=== PATIENT | male | born 1950 | race Caucasian/White ===

== ENCOUNTER 2018-08-12 12:31 | Inpatient (IN) | payer MEDICARE ==
--- NOTE | 2018-08-12 13:16 | ED ---
General Adult HPI - General Chief complaint: Shortness of Breath Stated complaint: SOB Time Seen by Provider: 08/12/18 12:41 Source: patient, RN notes reviewed, old records reviewed Mode of arrival: ambulatory Limitations: no limitations - History of Present Illness Initial comments: 68-year-old male presenting with 1 month history of worsening dyspnea, lower extremity swelling, bilateral arm pain and tingling. Patient is a current smoker, states she has baseline cough. No fever or chills. No history of congestive heart failure. Denies central chest pain. Does report some abdominal bloating and nausea. No history of fever or chills. No vomiting or diarrhea. - Related Data Home Medications Medication Instructions Recorded Confirmed Aspirin EC [Ecotrin Low Dose] 162 - 405 mg PO DAILY PRN 08/12/18 08/12/18 Calcium Carbonate [Tums] 500 mg PO QID PRN 08/12/18 08/12/18 Allergies Allergy/AdvReac Type Severity Reaction Status Date / Time No Known Allergies Allergy Verified 08/12/18 13:16 Review of Systems ROS Statement: Those systems with pertinent positive or pertinent negative responses have been documented in the HPI. ROS Other: All systems not noted in ROS Statement are negative. Past Medical History Past Medical History: No Reported History History of Any Multi-Drug Resistant Organisms: None Reported Past Surgical History: No Surgical Hx Reported Past Psychological History: No Psychological Hx Reported Smoking Status: Heavy tobacco smoker Past Alcohol Use History: Daily Past Drug Use History: None Reported General Exam Limitations: no limitations General appearance: alert, in no apparent distress Head exam: Present: atraumatic, normocephalic Eye exam: Present: normal appearance, PERRL ENT exam: Present: normal exam Neck exam: Present: normal inspection. Absent: tenderness, meningismus Respiratory exam: Present: rales. Absent: respiratory distress Cardiovascular Exam: Present: regular rate, normal rhythm GI/Abdominal exam: Present: soft. Absent: distended, tenderness Extremities exam: Present: normal capillary refill, pedal edema Back exam: Present: normal inspection Neurological exam: Present: alert, oriented X3, CN II-XII intact. Absent: motor sensory deficit Psychiatric exam: Present: normal affect, normal mood Skin exam: Present: warm, dry, intact, pallor. Absent: cyanosis, diaphoretic Course Vital Signs 08/12/18 08/12/18 08/12/18 12:37 13:17 13:50 Temperature 98.1 F Pulse Rate 128 H 90 Respiratory 18 20 18 Rate Blood Pressure 111/61 142/67 O2 Sat by Pulse 97 98 Oximetry 08/12/18 08/12/18 14:30 15:15 Temperature Pulse Rate 87 85 Respiratory 18 18 Rate Blood Pressure 138/60 O2 Sat by Pulse 100 100 Oximetry EKG Findings - EKG Comments: EKG Findings:: EKG: Normal sinus rhythm, no ST segment elevation, rate of 94, CA interval 162, QRS duration 88, QTC 467 Medical Decision Making - Medical Decision Making 68-year-old male presenting with dyspnea over the past one month. Patient appears pale, he has exam findings consistent with CHF. EKG is nonischemic, troponin is negative. Chest x-ray does show some pulmonary edema. Patient has normal white blood cell count, hemoglobin is 4, normal platelets. He has elevated AST and ALT likely secondary to alcohol abuse. Rectal exam reveals normal brown stool, this is heme negative. INR is elevated 1.7. Given the elevation in AST ALT, ultrasound of the liver and gallbladder will be obtained, this is pending. Echo will be obtained. Patient is transfused 3 units of packed RBCs. He will be given additional dose of Lasix after transfusion. Case is discussed with the pulmonary order expediter Dr. Clay, felt the patient is stable for telemetry, selective unit, no need for ICU at this time. Echo and ultrasound pending. Case discussed with Dr. Subramanian, will admit patient. - Lab Data Result diagrams: 08/12/18 14:20 08/12/18 14:20 Lab Results 08/12/18 08/12/18 08/12/18 Range/Units 13:20 14:20 14:20 WBC 7.0 (3.8-10.6) k/uL RBC 2.44 L (4.30-5.90) m/uL Hgb 4.0 L* (13.0-17.5) gm/dL Hct 17.6 L* (39.0-53.0) % MCV 72.1 L (80.0-100.0) fL MCH 16.4 L (25.0-35.0) pg MCHC 22.7 L (31.0-37.0) g/dL RDW 18.4 H (11.5-15.5) % Plt Count 437 (150-450) k/uL Neutrophils % 78 % Lymphocytes % 10 % Monocytes % 8 % Eosinophils % 1 % Basophils % 0 % Neutrophils # 5.5 (1.3-7.7) k/uL Lymphocytes # 0.7 L (1.0-4.8) k/uL Monocytes # 0.6 (0-1.0) k/uL Eosinophils # 0.1 (0-0.7) k/uL Basophils # 0.0 (0-0.2) k/uL Hypochromasia Marked Hypochromasia (manual) Present Poikilocytosis Slight Poikilocytosis (manual Present Anisocytosis Slight Microcytosis Moderate PT 16.7 H (9.0-12.0) sec INR 1.7 H (<1.2) APTT 22.0 (22.0-30.0) sec Sodium 139 (137-145) mmol/L Potassium 3.9 (3.5-5.1) mmol/L Chloride 102 (98-107) mmol/L Carbon Dioxide 23 (22-30) mmol/L Anion Gap 14 mmol/L BUN 16 (9-20) mg/dL Creatinine 1.00 (0.66-1.25) mg/dL Est GFR (CKD-EPI)AfAm 90 (>60 ml/min/1.73 sqM) Est GFR (CKD-EPI)NonAf 78 (>60 ml/min/1.73 sqM) Glucose 113 H (74-99) mg/dL Calcium 8.7 (8.4-10.2) mg/dL Magnesium 2.0 (1.6-2.3) mg/dL Total Bilirubin 0.4 (0.2-1.3) mg/dL AST 606 H (17-59) U/L ALT 237 H (21-72) U/L Alkaline Phosphatase 142 H (38-126) U/L Troponin I (0.000-0.034) ng/mL NT-Pro-B Natriuret Pep pg/mL Total Protein 8.0 (6.3-8.2) g/dL Albumin 3.5 (3.5-5.0) g/dL Stool Occult Blood (Negative) Blood Type Recheck Spec Expiration Date 04/04/19 04/04/19 04/04/19 Range/Units 14:20 14:20 14:20 WBC (3.8-10.6) k/uL RBC (4.30-5.90) m/uL Hgb (13.0-17.5) gm/dL Hct (39.0-53.0) % MCV (80.0-100.0) fL MCH (25.0-35.0) pg MCHC (31.0-37.0) g/dL RDW (11.5-15.5) % Plt Count (150-450) k/uL Neutrophils % % Lymphocytes % % Monocytes % % Eosinophils % % Basophils % % Neutrophils # (1.3-7.7) k/uL Lymphocytes # (1.0-4.8) k/uL Monocytes # (0-1.0) k/uL Eosinophils # (0-0.7) k/uL Basophils # (0-0.2) k/uL Hypochromasia Hypochromasia (manual) Poikilocytosis Poikilocytosis (manual Anisocytosis Microcytosis PT (9.0-12.0) sec INR (<1.2) APTT (22.0-30.0) sec Sodium 138 (137-145) mmol/L Potassium 3.5 (3.5-5.1) mmol/L Chloride 103 (98-107) mmol/L Carbon Dioxide 24 (22-30) mmol/L Anion Gap 11 mmol/L BUN 16 (9-20) mg/dL Creatinine 0.95 (0.66-1.25) mg/dL Est GFR (CKD-EPI)AfAm >90 (>60 ml/min/1.73 sqM) Est GFR (CKD-EPI)NonAf 83 (>60 ml/min/1.73 sqM) Glucose 112 H (74-99) mg/dL Calcium 8.6 (8.4-10.2) mg/dL Magnesium 2.1 (1.6-2.3) mg/dL Total Bilirubin 0.4 (0.2-1.3) mg/dL AST 608 H (17-59) U/L ALT 229 H (21-72) U/L Alkaline Phosphatase 138 H (38-126) U/L Troponin I <0.012 (0.000-0.034) ng/mL NT-Pro-B Natriuret Pep 688 pg/mL Total Protein 8.0 (6.3-8.2) g/dL Albumin 3.4 L (3.5-5.0) g/dL Stool Occult Blood (Negative) Blood Type Recheck Spec Expiration Date 08/12/18 08/12/18 Range/Units 15:04 15:04 WBC (3.8-10.6) k/uL RBC (4.30-5.90) m/uL Hgb (13.0-17.5) gm/dL Hct (39.0-53.0) % MCV (80.0-100.0) fL MCH (25.0-35.0) pg MCHC (31.0-37.0) g/dL RDW (11.5-15.5) % Plt Count (150-450) k/uL Neutrophils % % Lymphocytes % % Monocytes % % Eosinophils % % Basophils % % Neutrophils # (1.3-7.7) k/uL Lymphocytes # (1.0-4.8) k/uL Monocytes # (0-1.0) k/uL Eosinophils # (0-0.7) k/uL Basophils # (0-0.2) k/uL Hypochromasia Hypochromasia (manual) Poikilocytosis Poikilocytosis (manual Anisocytosis Microcytosis PT (9.0-12.0) sec INR (<1.2) APTT (22.0-30.0) sec Sodium (137-145) mmol/L Potassium (3.5-5.1) mmol/L Chloride (98-107) mmol/L Carbon Dioxide (22-30) mmol/L Anion Gap mmol/L BUN (9-20) mg/dL Creatinine (0.66-1.25) mg/dL Est GFR (CKD-EPI)AfAm (>60 ml/min/1.73 sqM) Est GFR (CKD-EPI)NonAf (>60 ml/min/1.73 sqM) Glucose (74-99) mg/dL Calcium (8.4-10.2) mg/dL Magnesium (1.6-2.3) mg/dL Total Bilirubin (0.2-1.3) mg/dL AST (17-59) U/L ALT (21-72) U/L Alkaline Phosphatase (38-126) U/L Troponin I (0.000-0.034) ng/mL NT-Pro-B Natriuret Pep pg/mL Total Protein (6.3-8.2) g/dL Albumin (3.5-5.0) g/dL Stool Occult Blood Negative (Negative) Blood Type Recheck CABO Indicated Spec Expiration Date 08/15/2018 - 2304 Critical Care Time Critical Care Time: Yes Total Critical Care Time: 35 Disposition Clinical Impression: Congestive heart failure, Anemia, Symptomatic anemia, Transaminitis, High output congestive heart failure Disposition: ADMITTED IP TO THIS [facility] Condition: Stable Is patient prescribed a controlled substance at d/c from ED?: No Referrals: None,Stated [Primary Care Provider] - 1-2 days Decision to Admit Reason: Admit from EC Decision Date: 08/12/18 Decision Time: 16:05
--- NOTE | 2018-08-12 13:56 | XR ---
EXAMINATION TYPE: XR chest 2V DATE OF EXAM: 08/12/2018 COMPARISON: NONE HISTORY: Difficulty in breathing and weakness. TECHNIQUE: Frontal and lateral views of the chest are obtained. FINDINGS: There is chronic frontal change with blunting of bilateral posterior costophrenic angles s uggesting tiny bilateral pleural effusions. No suspicious focal airspace opacity or pneumothorax is s een bilaterally. The cardiac silhouette size is enlarged. Large bridging osteophytes in the thoracic spine are present. IMPRESSION: Chronic parenchymal changes and mild cardiomegaly with tiny bilateral pleural effusions. Correlate for early CHF exacerbation.
[2018-08-12 13:58] LABS: Albumin 3.5 g/dL (3.5-5.0); Calcium 8.7 mg/dL (8.4-10.2); Potassium 3.9 mmol/L (3.5-5.1); Total Bilirubin 0.4 mg/dL (0.2-1.3)
[2018-08-12] MEDS ORDERED: FUROSEMIDE 10 MG/ML 4 ML VIAL IV STA ×2 (14:12→16:06)
[2018-08-12 14:39] LABS: ALT 229 U/L (21-72); AST 608 U/L (17-59); Albumin 3.4 g/dL (3.5-5.0); Alkaline Phosphatase 138 U/L (38-126); Anion Gap 11 mmol/L; Blood Urea Nitrogen 16 mg/dL (9-20); Calcium 8.6 mg/dL (8.4-10.2); Carbon Dioxide 24 mmol/L (22-30); Chloride 103 mmol/L (98-107); Glucose 112 mg/dL (74-99); Magnesium 2.1 mg/dL (1.6-2.3); Potassium 3.5 mmol/L (3.5-5.1); Sodium 138 mmol/L (137-145); Total Bilirubin 0.4 mg/dL (0.2-1.3)
[2018-08-12 14:43] LABS: Anisocytosis Slight; Basophils % (A) 0 %; Eosinophils # (A) 0.1 k/uL (0-0.7); Eosinophils % (A) 1 %; Hypochromasia Marked; Lymphocytes # (A) 0.7 k/uL (1.0-4.8); Lymphocytes % (A) 10 %; MCH 16.4 pg (25.0-35.0); MCHC 22.7 g/dL (31.0-37.0); MCV 72.1 fL (80.0-100.0); Mean Platelet Volume 8.9; Microcytosis Moderate; Monocytes # (A) 0.6 k/uL (0-1.0); Monocytes % (A) 8 %; Neutrophils # (A) 5.5 k/uL (1.3-7.7); Neutrophils % (A) 78 %; Platelet Count 437 k/uL (150-450); Poikilocytosis Slight; RBC 2.44 m/uL (4.30-5.90); RDW 18.4 % (11.5-15.5)
[2018-08-12 14:53] LABS: HCT 17.6 % (39.0-53.0)
[2018-08-12] MEDS ORDERED: PANTOPRAZOLE 40 MG/10 ML VIAL IVP STA (14:55)
[2018-08-12 15:01] LABS: INR 1.7 (<1.2); Prothrombin Time 16.7 sec (9.0-12.0)
[2018-08-12] MEDS ORDERED: THIAMINE 100 MG/ML 2 ML VIAL IM STA (15:07)
[2018-08-12] MEDS ORDERED: LORazepam 2 MG/ML INJ IV PRN ×3 (15:07)
[2018-08-12 15:12] LABS: Hypochromasia (M) Present; Poikilocytosis (M) Present
[2018-08-12] MEDS ORDERED: ACETAMINOPHEN TAB 325 MG TAB PO PRN (16:06)
[2018-08-12] MEDS ORDERED: ONDANSETRON 4 MG/2 ML VIAL IVP PRN (16:06)
[2018-08-12] MEDS ORDERED: NALOXONE 0.4 MG/ML 1 ML VIAL IV PRN (16:06)
--- NOTE | 2018-08-12 16:41 | US ---
EXAMINATION TYPE: US gallbladder DATE OF EXAM: 08/12/2018 COMPARISON: NONE CLINICAL HISTORY: Pain, nausea and vomiting x 3 days. EXAM MEASUREMENTS: Extensive overlying bowel gas, technically difficult study. Patient states he is NPO. Liver Length: 13.4 cm Gallbladder Wall: 0.8 cm CBD: 0.3 cm Right Kidney: 10.7 x 5.0 x 5.2 cm Pancreas: portions visualized wnl Liver: wnl Gallbladder: Gallbladder is contracted, without anechoic biliary fluid within. Rather, the gallbladde r is likely sludge-filled. Evidence for sonographic Story's sign: no CBD: wnl Right Kidney: limited views due to overlying bowel gas, prominent renal pelvis IMPRESSION: Contracted gallbladder with biliary sludge within.
[2018-08-12] MEDS: THIAMINE 100 MG TAB PO SCH (17:42)
--- NOTE | 2018-08-12 18:53 | ECHOF ---
Referral Reason:CHF MEASUREMENTS -------- HEIGHT: 180.3 cm WEIGHT: 93.4 kg BP: 138/60 RVIDd: 2.7 cm (< 3.3) IVSd: 1.1 cm (0.6 - 1.1) LVIDd: 5.2 cm (3.9 - 5.3) LVPWd: 1.1 cm (0.6 - 1.1) IVSs: 1.4 cm LVIDs: 3.5 cm LVPWs: 1.4 cm LAESV Index (A-L): 24.23 ml/m Ao Diam: 3.1 cm (2.0 - 3.7) AV Cusp: 2.2 cm (1.5 - 2.6) LA Diam: 3.1 cm (2.7 - 3.8) MV EXCURSION: 27.766 mm (> 18.000) MV EF SLOPE: 162 mm/s (70 - 150) EPSS: 0.7 cm MV E Paul: 1.29 m/s MV DecT: 223 ms MV A Paul: 0.84 m/s MV E/A Ratio: 1.53 RAP: 10.00 mmHg RVSP: 26.56 mmHg FINDINGS -------- Sinus rhythm. This was a technically adequate study. The left ventricular size is normal. There is borderline concentric left ventricular hypertrophy. Overall left ventricular systolic function is normal with, an EF between 55 - 60 %. The right ventricle is normal in size and function. Normal LA size by volume 22+/-6 ml/m2. The right atrium is normal in size. There is mild aortic valve sclerosis. There is no evidence of aortic regurgitation. There is no e vidence of aortic stenosis. The mitral valve leaflets are mildly thickened. There is trace to mild mitral regurgitation. Trace tricuspid regurgitation present. Right ventricular systolic pressure is normal at < 35 mmHg. There is no evidence of pulmonary hypertension. The pulmonic valve was not well visualized. The aortic root size is normal. The IVC is dilated with normal collapse. There is no pericardial effusion. CONCLUSIONS -------- 1. Sinus rhythm. 2. This was a technically adequate study. 3. The left ventricular size is normal. 4. There is borderline concentric left ventricular hypertrophy. 5. Overall left ventricular systolic function is normal with, an EF between 55 - 60 %. 6. Normal LA size by volume 22+/-6 ml/m2. 7. There is mild aortic valve sclerosis. 8. The mitral valve leaflets are mildly thickened. 9. There is trace to mild mitral regurgitation. 10. Trace tricuspid regurgitation present. 11. Right ventricular systolic pressure is normal at < 35 mmHg. 12. There is no evidence of pulmonary hypertension. 13. The pulmonic valve was not well visualized. 14. The aortic root size is normal. 15. The IVC is dilated with normal collapse. 16. There is no pericardial effusion. [facility] OPERATOR: Franklin Angela RDCS
[2018-08-12] MEDS ORDERED: ALPRAZolam 0.25 MG TAB PO PRN (19:32)
[2018-08-12] MEDS ORDERED: TEMAZEPAM 15 MG CAP PO PRN (19:32)
[2018-08-12] MEDS ORDERED: HYDROmorphone 0.5 MG/0.5 ML SYRINGE IVP PRN (19:32)
[2018-08-12] MEDS: IOPAMIDOL-300 CONTRAST 30 ML VIAL (ORAL USE) PO PRN ×2 (19:59→20:44)
[2018-08-12] MEDS: PHYTONADIONE ORAL 5 MG/5 ML ORAL.SYRG PO SCH (20:45)
[2018-08-12] MEDS: PANTOPRAZOLE 40 MG/10 ML VIAL IVP SCH (20:45)
--- NOTE | 2018-08-12 22:03 | CT ---
EXAMINATION TYPE: CT abdomen pelvis wo IV contrast, but with Oral contrast DATE OF EXAM: 08/12/2018 COMPARISON: None HISTORY: GI bleed. No IV contrast, oral only CT DLP: 722.6 mGycm. Automated exposure control for dose reduction was used. TECHNIQUE: Helical acquisition of images was performed from the lung bases through the pelvis. FINDINGS: Within the limitations of noncontrast CT, the following observations are made: LUNG BASES: No acute findings. LIVER/GB: No significant abnormality is appreciated. PANCREAS: No significant abnormality is seen. SPLEEN: No significant abnormality is seen. ADRENALS: No significant abnormality is seen. KIDNEYS: No significant abnormality is seen. FREE AIR: No free air is visualized RETROPERITONEAL ADENOPATHY: None visualized REPRODUCTIVE ORGANS: No significant abnormality is seen URINARY BLADDER: No significant abnormality is seen. PELVIC ADENOPATHY: None visualized. OSSEOUS STRUCTURES: No significant abnormality is seen. BOWEL: No significant abnormality is seen. There is no bowel obstruction. OTHER: Coronary calcifications noted. IMPRESSION: NO ACUTE PROCESS.
--- NOTE | 2018-08-12 22:26 | HP ---
HISTORY AND PHYSICAL CHIEF COMPLAINT: Shortness of breath. HISTORY OF PRESENT ILLNESS: This 68-year-old gentleman with past medical history of no significant medical illness, not being followed by primary physician in the outpatient setting, has history of heavy alcohol intake and as well as heavy smoking also. The patient had history of 1 month of worsening shortness of breath. The patient had leg swelling and patient also had bilateral arm pain and tingling and multiple symptomatology. The patient came to [facility] and was admitted to [facility] for further evaluation and treatment. Initially, chest x-ray showed possible CHF, blood work showed hemoglobin of 4, which is indicating a rather chronic gastrointestinal bleed and blood-loss anemia. The patient is admitted for further evaluation and treatment. Patient is on Lasix also. Patient also had INR 1.2 indicating coagulopathy indicative of chronic liver disease. Patient also had elevated AST, ALT, including possible alcoholic hepatitis. Also, 2D echo with Doppler was also done which showed ejection fraction of 55-60 percent and there not much valvular abnormalities noted and the patient admitted to the hospital for further evaluation and treatment. There is no history of fever, rigors or chills. No history of headache, loss of consciousness or seizures. No obvious GI bleed noted. Gallbladder ultrasound also showed some was calcified and had showed a contracted gallbladder with biliary sludge. There is no history of fever, rigors or chills at this time. PAST MEDICAL HISTORY: No history of heart disease or strokes in the family. SOCIAL HISTORY: Smoking and alcohol intake. MEDICATIONS ARE: Calcium carbonate 500 mg q.i.d. p.r.n. and aspirin 160 mg daily p.r.n. ALLERGIES: None. FAMILY HISTORY: History of diabetes in the family. SOCIAL HISTORY: History of smoking, alcohol as mentioned. REVIEW OF SYSTEMS: ENT: No diminished vision. No diminished hearing. Cardiovascular system as mentioned earlier. RESPIRATORY: As mentioned earlier. GI: As mentioned earlier. no dysuria. Nervous system: No numbness or weakness. ALLERGY/IMMUNOLOGY: As mentioned earlier. MUSCULOSKELETAL: As mentioned earlier. HEMATOLOGY/ONCOLOGY: As mentioned earlier. ENDOCRINE: No history of diabetes or hypothyroidism. CONSTITUTIONAL: As mentioned earlier. Dermatology: Negative. Rheumatology: Negative. Psychiatry: As mentioned earlier. PHYSICAL EXAMINATION: Alert and oriented x3. Pulse 80, blood pressure is 150/88, respiration 18, temperature 97.2. Pulse ox 100 percent on 2 L. HEENT is conjunctivae pale. Oral mucosa pale. Neck is jugular venous distention at the root of the neck. Cardiovascular system: S1, S2. Ejection systolic murmur. No S3, no S4. RESPIRATORY: Breath sounds diminished in the bases. A few scattered rhonchi. No crackles. ABDOMEN: Soft, obese, distended. No mass palpable. No ascites. Bowel sounds diminished. Legs: Bilateral leg edema. Central nervous system: Higher functions as mentioned earlier. Moves all 4 limbs. No focal motor or sensory deficits. Lymphatics: No lymph nodes palpable in the neck, axillae or groin. SKIN: No ulcer, rash, bleeding. JOINTS: No active deforming arthropathy. LABS: WBC 7, hemoglobin is 4, MCV 72.1. INR is 1.7. Sodium 130, potassium 3.5, glucose 112, AST 608, ALT is 229, alkaline phosphatase 138, and is 3.4. ASSESSMENT: 1. Severe anemia, microcytic possibly chronic gastrointestinal blood loss, rule out peptic ulcer disease or cirrhosis of the liver. 2. Congestive heart failure acute exacerbation with acute on chronic diastolic dysfunction, ejection fraction 50 to 60%. 3. Increased AST, ALT, possibly alcoholic hepatitis. 4. Increased random blood sugar. 5. Hypertension. 6. Hypoalbuminemia. 7. History of EtOH. 8. History of nicotine dependence. RECOMMENDATIONS AND DISCUSSION: In this 68-year-old gentleman who presented with multiple complex medical issues, we will monitor the patient closely. Continue the current medications, management and symptomatic treatment. Otherwise, at this time, I would recommend transfusions at least 3 units transfusions. Gastroenterology evaluation for possible endoscopes. Also recommend a CT scan of the abdomen and pelvis. Other than that, I would also recommend a small dose of diuretics as well. A chest x-ray done, which was reviewed and 2D echo was noted and the EKG showed nonspecific ST-T changes also. So overall prognosis extremely guarded, I also discussed with the patient to follow up with primary doctor home and the patient understands and agrees. Further recommendations to follow. Alcohol cessation advised. We will also obtain a social work professor evaluation of the home situation to try to arrange possible rehab for which the patient might be open at this time. Once again, the prognosis guarded. Further recommendations to follow. MMODL / IJN: [id number] / MTDD
[2018-08-13 02:14] LABS: Appearance,Urine Clear (Clear); Bilirubin,Urine Negative (Negative); Blood,Urine Small (Negative); Color,Urine Yellow; Glucose,Urine (UA) Negative (Negative); Ketones,Urine 1+ (Negative); Leukocyte Esterase,Urine Negative (Negative); Mucus,Urine Rare /hpf; Nitrite,Urine Negative (Negative); Protein,Urine Trace (Negative); RBC,Urine <1 /hpf (0-5); Specific Gravity,Urine 1.013 (1.001-1.035); Squamous Epithelial Cell,Urine 1 /hpf (0-4); Urobilinogen,Urine <2.0 mg/dL (<2.0); WBC,Urine <1 /hpf (0-5)
[2018-08-13 06:58] LABS: INR 1.4 (<1.2); Prothrombin Time 14.4 sec (9.0-12.0)
[2018-08-13 07:03] LABS: ALT 208 U/L (21-72); AST 438 U/L (17-59); Albumin 3.5 g/dL (3.5-5.0); Alkaline Phosphatase 129 U/L (38-126); Anion Gap 12 mmol/L; Blood Urea Nitrogen 13 mg/dL (9-20); Calcium 8.6 mg/dL (8.4-10.2); Carbon Dioxide 28 mmol/L (22-30); Chloride 101 mmol/L (98-107); Glucose 89 mg/dL (74-99); Potassium 3.4 mmol/L (3.5-5.1); Sodium 141 mmol/L (137-145); Total Protein 8.2 g/dL (6.3-8.2)
[2018-08-13 07:21] LABS: Anisocytosis Slight; Basophils % (A) 1 %; Eosinophils # (A) 0.3 k/uL (0-0.7); Eosinophils % (A) 4 %; HCT 27.6 % (39.0-53.0); Hypochromasia Marked; Lymphocytes # (A) 0.8 k/uL (1.0-4.8); Lymphocytes % (A) 11 %; MCHC 27.9 g/dL (31.0-37.0); Mean Platelet Volume 8.5; Microcytosis Slight; Monocytes # (A) 0.6 k/uL (0-1.0); Monocytes % (A) 8 %; Neutrophils # (A) 5.4 k/uL (1.3-7.7); Neutrophils % (A) 74 %; Platelet Count 441 k/uL (150-450); Poikilocytosis Marked; RBC 3.49 m/uL (4.30-5.90); RDW 17.4 % (11.5-15.5); WBC 7.3 k/uL (3.8-10.6)
[2018-08-13 07:25] LABS: HGB 7.7 gm/dL (13.0-17.5)
[2018-08-13] MEDS: NICOTINE 14MG/24HR PATCH TRANSDERM SCH (08:15)
[2018-08-13] MEDS: PANTOPRAZOLE 40 MG/10 ML VIAL IVP SCH ×2 (08:15→20:37)
[2018-08-13 09:04] LABS: Mixed Population RBC Present
[2018-08-13 09:05] LABS: Target Cells Present
[2018-08-13] MEDS: PHYTONADIONE ORAL 5 MG/5 ML ORAL.SYRG PO SCH (09:47)
[2018-08-13] MEDS: THIAMINE 100 MG TAB PO SCH ×2 (12:02→17:35)
[2018-08-13] MEDS: FOLIC ACID 1 MG TAB PO SCH (12:02)
[2018-08-13] MEDS: MULTIVITAMINS, THERA 1 EACH TAB PO SCH (12:02)
[2018-08-13 12:56] LABS: Hepatitis A Antibody IgM Non-Reactive (Non-Reactive); Hepatitis B Core IgM Non-Reactive (Non-Reactive)
[2018-08-13 15:25] VITALS: BMI 28.9
[2018-08-13] MEDS ORDERED: PEG 3350-NA SULF,BICARB,CL/KCL 4,000 ML BOTTLE PO ONE (16:46)
[2018-08-13] MEDS: FUROSEMIDE 10 MG/ML 4 ML VIAL IV SCH (17:35)
[2018-08-13] MEDS ORDERED: BISACODYL 5 MG TABLET.DR PO ONE (18:00)
--- NOTE | 2018-08-13 18:43 | P.CONS ---
History of Present Illness - Reason for Consult Consult date: 08/13/18 Anemia Requesting physician: Kurt Subramanian - Chief Complaint Shortness of breath, peripheral distal - History of Present Illness 68-year-old male with a medical history significant for tobacco and alcohol abuse who presented to the hospital with a constellation of symptoms. The patient reports increasing shortness of breath, lower extremity edema and some bilateral arm numbness and tingling which has been progressive over the past few months. The patient reports that this is affected his quality of life with past 6 months. Symptoms have become progressively worse. He denies any blood per rectum, melena or change in his bowel habits. At baseline he has one to 2 bowel movements daily. He denies any nausea or vomiting. He denies any unintentional weight loss over the last year and actually reports weight gain. Denies any family history of colon cancer. She does report frequent heartburn. On presentation to the hospital patient's hemoglobin was found to be 4 which was transfused up to 7.7. INR 1.4, total bilirubin 1, alkaline phosphatase 129, AST 438 and MALT 208. Ultrasound showed a contracted gallbladder with sludge. CT of the abdomen was negative for an acute process. Stool was negative for blood. Review of Systems REVIEW OF SYSTEMS: CONSTITUTIONAL: Denies any fevers, chills, weight change or fatigue. CARDIOVASCULAR: Denies any chest pain, palpitations high or low blood pressures RESPIRATORY: Denies any hemoptysis or cough, but did report worsening shortness of breath on presentation. GENITOURINARY: No dysuria or hematuria. MUSCULOSKELETAL: No weakness reported. SKIN: Denies any new rashes or lesions, jaundice or pallor. PSYCHIATRIC: Denies any depression or anxiety. NEUROLOGY: Denies headache, denies any new focal deficits. EARS/NOSE/THROAT: No recent hearing change, congestion, nasal discharge or sore throat. EYES: No pain in eyes, discharge or change in vision. GASTROINTESTINAL: As per HPI. Past Medical History Past Medical History: No Reported History History of Any Multi-Drug Resistant Organisms: None Reported Past Surgical History: No Surgical Hx Reported Past Anesthesia/Blood Transfusion Reactions: No Reported Reaction Past Psychological History: No Psychological Hx Reported Smoking Status: Heavy tobacco smoker Past Alcohol Use History: Daily Past Drug Use History: None Reported - Past Family History Brother(s) Family Medical History: Diabetes Mellitus Medications and Allergies Home Medications Medication Instructions Recorded Confirmed Type Aspirin EC [Ecotrin Low Dose] 162 - 405 mg PO DAILY PRN 08/12/18 08/12/18 H istory Calcium Carbonate [Tums] 500 mg PO QID PRN 08/12/18 08/12/18 History Allergies Allergy/AdvReac Type Severity Reaction Status Date / Time No Known Allergies Allergy Verified 08/12/18 13:16 Physical Exam Vitals: Vital Signs Temp Pulse Pulse Resp BP BP Pulse Ox 08/13/18 15:16 99.6 F 73 18 137/71 98 08/13/18 12:03 97.7 F 73 18 125/67 98 08/13/18 08:30 98.6 F 87 18 132/70 97 08/13/18 04:00 98.2 F 71 18 130/70 96 08/13/18 03:08 98.0 F 72 18 133/68 97 08/13/18 03:07 98.0 F 72 18 133/68 97 08/13/18 01:22 98.4 F 80 18 140/71 99 08/13/18 00:52 98.4 F 77 18 127/69 97 08/13/18 00:42 98.2 F 81 18 123/69 99 08/13/18 00:26 98.1 F 75 18 128/71 98 08/13/18 00:00 98.0 F 75 18 117/66 99 08/12/18 22:39 98.4 F 82 18 123/76 100 08/12/18 22:09 98.6 F 77 18 126/64 99 08/12/18 21:59 98.5 F 77 18 125/67 99 08/12/18 20:00 98.2 F 86 18 125/59 98 08/12/18 19:01 97.9 F 80 18 158/80 100 08/12/18 18:50 80 16 Intake and Output 08/13/18 08/13/18 08/13/18 06:59 14:59 22:59 Intake Total 620 690 560 Output Total 9107 122 3650 Balance -1130 380 -940 Intake: Oral 690 560 Blood Product 620 Rc As-1 Unit 310 [id number] Rc As-1 Unit 310 [id number] Output: Urine 4891 375 1559 Other: Voiding Method Toilet # Voids 1 1 2 Weight 94 kg 94 kg On physical examination, patient appears comfortable in no apparent distress. HEAD: Normocephalic, atraumatic. EYES: No scleral icterus. No conjunctival injection. MOUTH: No lesions, tongue midline. NECK: Trachea midline, no gross abnormalities. CHEST: Clear to auscultation with no wheezing or rhonchi appreciated. HEART: Regular rate and rhythm. ABDOMEN: Soft, obese. Bowel sounds are positive. No organomegaly. No guarding or rigidity. EXTREMITIES: Bilateral pedal edema. SKIN: No rashes, no jaundice. NEUROLOGIC: Alert and oriented x3. No focal deficits. Results CBC & Chem 7: 08/13/18 06:16 08/13/18 06:16 Labs: Abnormal Lab Results - Last 24 Hours (Table) 08/12/18 08/13/18 08/13/18 Range/Units 15:04 01:25 06:16 RBC 3.49 L (4.30-5.90) m/uL Hgb 7.7 L D (13.0-17.5) gm/dL Hct 27.6 L (39.0-53.0) % MCV 79.0 L D (80.0-100.0) fL MCH 22.0 L (25.0-35.0) pg MCHC 27.9 L (31.0-37.0) g/dL RDW 17.4 H (11.5-15.5) % Lymphocytes # 0.8 L (1.0-4.8) k/uL PT (9.0-12.0) sec INR (<1.2) Potassium (3.5-5.1) mmol/L AST (17-59) U/L ALT (21-72) U/L Alkaline Phosphatase (38-126) U/L Urine Protein Trace H (Negative) Urine Ketones 1+ H (Negative) Urine Blood Small H (Negative) Urine Mucus Rare H (None) /hpf Crossmatch See Detail 08/13/18 08/13/18 Range/Units 06:16 06:16 RBC (4.30-5.90) m/uL Hgb (13.0-17.5) gm/dL Hct (39.0-53.0) % MCV (80.0-100.0) fL MCH (25.0-35.0) pg MCHC (31.0-37.0) g/dL RDW (11.5-15.5) % Lymphocytes # (1.0-4.8) k/uL PT 14.4 H (9.0-12.0) sec INR 1.4 H (<1.2) Potassium 3.4 L (3.5-5.1) mmol/L AST 438 H (17-59) U/L ALT 208 H (21-72) U/L Alkaline Phosphatase 129 H (38-126) U/L Urine Protein (Negative) Urine Ketones (Negative) Urine Blood (Negative) Urine Mucus (None) /hpf Crossmatch CT scan - abdomen: report reviewed (Computed tomography scan of the abdomen negative for any acute abdominal process. Ultrasound of the abdomen showing a contracted gallbladder with sludge.) Assessment and Plan (1) Symptomatic anemia Narrative/Plan: Symptomatic anemia of unknown etiology. Stool testing negative for occult blood. The patient is also denying any signs or symptoms of GI bleeding. Plan is for full endoscopic evaluation to rule out gastrointestinal pathology. Current Visit: Yes Status: Acute Code(s): D64.9 - ANEMIA, UNSPECIFIED SNOMED Code(s): 362670371 (2) Transaminitis Narrative/Plan: Elevation in the patient's liver enzymes and predominantly hepatocellular pattern with total bilirubin and alkaline phosphatase normal and AST 438 and ALP 208 likely secondary to alcohol abuse. Viral hepatitis panel negative. Ultrasound of the liver and significant only for a contracted gallbladder sludge. Current Visit: Yes Status: Acute Code(s): R74.0 - NONSPEC ELEV OF LEVELS OF TRANSAMNS & LACTIC ACID DEHYDRGNSE SNOMED Code(s): 736987783 Plan: Supportive care Clear liquid diet Nothing by mouth after midnight Bowel prep ordered Plan for EGD and colonoscopy in the morning Continue to monitor hemoglobin and hematocrit and transfuse as needed Continue to monitor for signs or symptoms GI bleeding History endoscopic evaluation is negative consideration is for video capsule endoscopy for further evaluation Thank you for allowing us to participate in care of the patient we will continue to follow
[2018-08-14 08:05] LABS: INR 1.2 (<1.2); Prothrombin Time 12.5 sec (9.0-12.0)
[2018-08-14] MEDS: NICOTINE 14MG/24HR PATCH TRANSDERM SCH (09:08)
[2018-08-14] MEDS: PANTOPRAZOLE 40 MG/10 ML VIAL IVP SCH ×2 (09:08→21:56)
[2018-08-14] MEDS: FUROSEMIDE 10 MG/ML 4 ML VIAL IV SCH (09:08)
--- NOTE | 2018-08-14 09:32 | PN ---
PROGRESS NOTE DATE OF SERVICE: 08/13/2018 This 68-year-old gentleman was admitted with severe anemia, also had a possible gastrointestinal bleed. The patient was evaluated by Gastroenterology and as well as Cardiology. The patient is being closely monitored. Dr. Leos is planning EGD tomorrow morning. No chest pain. No palpitations. No fever. EXAM: Alert and oriented x3. Pulse is 73, blood pressure 130/70, respiration 18, temperature 99.6, pulse ox 98% on room air. HEENT: Conjunctivae normal. Oral mucosa moist. NECK: No jugular venous distention. No lymph node enlargement. CARDIOVASCULAR: S1, S2. RESPIRATORY: Diminished breath sounds at the bases. Bilateral scattered rhonchi and crackles. ABDOMEN: Soft, nontender. LEGS: No swelling. NERVOUS SYSTEM: No focal deficits. LABS: WBC 7.3, hemoglobin 7.7, INR is 1.4, sodium 140, potassium 3.4. The AST is 438, ALT is 208, slightly improving. Acute hepatitis panel is negative. ASSESSMENT: 1. Severe anemia, microcytic possibly chronic gastrointestinal bleed blood loss Will also rule out peptic ulcer disease as well as cirrhosis of the liver. 2. Congestive heart failure acute exacerbation, acute on chronic diastolic dysfunction, ejection fraction 50-60 percent. 3. Increased AST, ALT, possibly alcoholic hepatitis. 4. Increased random blood sugar. 5. Hypertension. 6. Hypoalbuminemia. 7. History of EtOH. 8. History nicotine dependence. RECOMMENDATIONS AND DISCUSSION: Continue current management, continue symptomatic treatment. Hemoglobin is significantly improved and is 7.7. At this time Dr. Leos is planning EGD tomorrow. Follow closely with Cardiology. INR is improved to 1.4. Guarded prognosis. Further recommendations to follow. MMODL / IJN: [id number] /
[2018-08-14] MEDS ORDERED: LIDOCAINE 1% INJ 10MG/ML (20 ML MDV) ONE (10:42)
[2018-08-14] MEDS ORDERED: PROPOFOL 10 MG/ML 20 ML VIAL IV ONE (10:42)
[2018-08-14] MEDS ORDERED: LACTATED RINGERS 1,000 ML IV ONE (10:51)
[2018-08-14] MEDS: PHYTONADIONE ORAL 5 MG/5 ML ORAL.SYRG PO SCH (11:38)
[2018-08-14] MEDS: THIAMINE 100 MG TAB PO SCH ×2 (11:38→15:42)
[2018-08-14] MEDS: FOLIC ACID 1 MG TAB PO SCH (11:38)
[2018-08-14] MEDS: MULTIVITAMINS, THERA 1 EACH TAB PO SCH (11:38)
--- NOTE | 2018-08-14 11:49 | P.PCN ---
Date of Procedure: 08/14/18 Procedure(s) Performed: Procedures: 1. Esophagogastroduodenoscopy and biopsy. 2. Colonoscopy and polypectomy. Preoperative diagnosis: Anemia and suspected GI bleeding. Postoperative diagnosis: 1. Hiatal hernia and a grade B distal esophagitis. 2. Mild antral gastritis. 3. Rectal polyp snared but no large polyps or cancer. 4. Multiple biopsies obtained from the duodenum, antrum and esophagus. Preparation: GoLYTELY prep. Sedation: Was provided by anesthesia. Brief clinical history: The patient is a 68-year-old male with a medical history significant for tobacco and alcohol abuse who presented to the hospital with a constellation of symptoms. The patient reports increasing shortness of breath, lower extremity edema and some bilateral arm numbness and tingling which has been progressive over the past few months. Symptoms have become progressively worse. He denies any blood per rectum, melena or change in his bowel habits. At baseline he has one to 2 bowel movements daily. He denies any nausea or vomiting. He denies any unintentional weight loss over the last year and act ually reports weight gain. Denies any family history of colon cancer. He does report frequent heartburn. On presentation to the hospital patient's hemoglobin was found to be 4 which was transfused up to 7.7. INR 1.4, total bilirubin 1, alkaline phosphatase 129, AST 438 and ALT 208. Ultrasound showed a contracted gallbladder with sludge. CT of the abdomen was negative for an acute process. Stool was negative for blood. Other details are summarized in the history and physical and dictated consultation and progress notes. This evaluation is to assess for a possible source of GI bleeding and anemia. Procedure: With the patient on his left lateral decubitus position and after informed consent and adequate sedation, I passed the Olympus-GIF H 190 video upper endoscope through the cricopharyngeus down the esophagus. GE junction was around 38 cm from the incisors and there was a small hiatal hernia and LA grade B distal esophagitis but no strictures or any definite Bernal's esophagus. The endoscope was then passed into the stomach which was insufflated with air and inspected in detail including the retroflex view in the cardia. There was some mottling and erythema in the antrum but no ulcers or erosions. Pyloric channel, duodenal bulb, post bulbar area and descending duodenum appeared within normal limits. Because of the degree of his anemia, I obtained biopsies from the duodenum, antrum and esophagus then the endoscope was withdrawn and I proceeded to perform the colonoscopy. Perianal area did not show any fissures or fistulas. There were no masses felt on digital rectal examination. The Olympus CFH 190L in the rectum in the usual fashion and advanced to the cecum. The preparation on the right side was less than ideal but there was no obvious pathology noted or spontaneous bleeding. A small polyp was noted in the rectum which was snared and retrieved by suction. I retroflexed the endoscope in the rectum before the endoscope was withdrawn. The patient tolerated the procedure well. Plan: The patient was reassured. Will await pathology results and make further plans based on his course and biopsy results. I anticipate maximizing his medical therapy for reflux and repeat an upper endoscopy in 2-3 months to assess the healing of his esophagitis and to rule out with more confidence the presence of Bernal's esophagus. Repeat colonoscopy in around 3 years would be indicated as well. Further workup for anemia and GI bleeding would be considered including a capsule endoscopy based on his course and blood counts. The possibility of his alcohol consumption contributing to his anemia should be kept in mind including possible alcoholic gastritis or Nandini-Espinoza tears in the past. He should be advised about the need to abstain from drinking completely.
[2018-08-14 19:15] LABS: ALT 135 U/L (21-72); AST 190 U/L (17-59); Albumin 2.9 g/dL (3.5-5.0); Alkaline Phosphatase 112 U/L (38-126); Anion Gap 8 mmol/L; Blood Urea Nitrogen 8 mg/dL (9-20); Calcium 7.9 mg/dL (8.4-10.2); Carbon Dioxide 31 mmol/L (22-30); Chloride 100 mmol/L (98-107); Glucose 79 mg/dL (74-99); Sodium 139 mmol/L (137-145); Total Bilirubin 0.6 mg/dL (0.2-1.3)
[2018-08-14 19:39] LABS: Anisocytosis Slight; Basophils % (A) 1 %; Eosinophils # (A) 0.2 k/uL (0-0.7); Eosinophils % (A) 3 %; HCT 27.8 % (39.0-53.0); HGB 7.6 gm/dL (13.0-17.5); Hypochromasia Marked; Lymphocytes # (A) 1.1 k/uL (1.0-4.8); Lymphocytes % (A) 16 %; MCH 21.6 pg (25.0-35.0); MCHC 27.3 g/dL (31.0-37.0); Mean Platelet Volume 9.9; Microcytosis Slight; Monocytes # (A) 0.8 k/uL (0-1.0); Monocytes % (A) 11 %; Neutrophils # (A) 4.6 k/uL (1.3-7.7); Neutrophils % (A) 68 %; Platelet Count 388 k/uL (150-450); Poikilocytosis Marked; RBC 3.52 m/uL (4.30-5.90); RDW 17.6 % (11.5-15.5); WBC 6.9 k/uL (3.8-10.6)
[2018-08-14 20:47] LABS: Rouleaux Present
[2018-08-14 20:48] LABS: Polychromasia Present; Target Cells Present
--- NOTE | 2018-08-14 22:29 | PN ---
PROGRESS NOTE DATE OF SERVICE: 08/14/2018 This 68-year-old gentleman admitted with severe anemia, also has significant issue with alcohol. Patient also had CHF, present on admission, given some diuretics. Dr. Collado performed EGD today which showed hiatal hernia and grade B distal esophagitis, gastritis and rectal polyp and multiple biopsies obtained. Patient being closely monitored. There is no history of fever, rigors or chills at this time. EXAM: Alert and oriented x3. Pulse 67. Blood pressure 130/68. Respirations 16. Temperature 98.2, pulse ox 94% on room air. HEENT: Conjunctivae normal. NECK: No jugular venous distention. No carotid bruit. CARDIOVASCULAR SYSTEM: S1, S2 muffled. RESPIRATORY SYSTEM: Breath sounds diminished at the bases. Scattered rhonchi and crackles. Abdomen soft. Nervous system: No focal deficits. LAB STUDIES: Hemoglobin 7.7. Today's hemoglobin is not available. The LFTs noted. ASSESSMENT: 1. Severe anemia, microcytic possibly acute gastrointestinal bleed status post EGD and colonoscopy showing hiatal hernia, distal esophagitis and mild antral gastritis and rectal polyps. 2. Congestive heart failure acute exacerbation with acute on chronic diastolic dysfunction, EF 55 to 60%. 3. Increased AST, ALT, possibly alcoholic hepatitis. 4. Increased random blood sugar. 5. Hypertension. 6. Hypoalbuminemia. 7. History of ETOH. 8. History of nicotine dependence. RECOMMENDATIONS AND DISCUSSION: Continue current medications, monitoring, management and symptomatic treatment. Continue the rest of the diuretics. Continue rest of medications. Otherwise, repeat labs. Closely follow with Gastroenterology, Cardiology. Guarded prognosis. Further recommendations to follow. MMODL / IJN: [id number] /
[2018-08-15 07:10] LABS: INR 1.1 (<1.2); Prothrombin Time 11.5 sec (9.0-12.0)
[2018-08-15 07:19] LABS: ALT 100 U/L (21-72); AST 96 U/L (17-59); Albumin 2.9 g/dL (3.5-5.0); Alkaline Phosphatase 112 U/L (38-126); Anion Gap 5 mmol/L; Blood Urea Nitrogen 7 mg/dL (9-20); Calcium 8.4 mg/dL (8.4-10.2); Carbon Dioxide 34 mmol/L (22-30); Chloride 100 mmol/L (98-107); Glucose 95 mg/dL (74-99); Potassium 3.3 mmol/L (3.5-5.1); Sodium 139 mmol/L (137-145); Total Bilirubin 0.6 mg/dL (0.2-1.3); Total Protein 7.3 g/dL (6.3-8.2)
[2018-08-15 08:30] LABS: Anisocytosis Slight; Basophils # (A) 0.1 k/uL (0-0.2); Basophils % (A) 1 %; Eosinophils # (A) 0.2 k/uL (0-0.7); Eosinophils % (A) 2 %; HCT 28.2 % (39.0-53.0); HGB 7.6 gm/dL (13.0-17.5); Hypochromasia Marked; Lymphocytes # (A) 1.4 k/uL (1.0-4.8); Lymphocytes % (A) 18 %; MCH 20.9 pg (25.0-35.0); MCHC 27.1 g/dL (31.0-37.0); Mean Platelet Volume 10.6; Microcytosis Slight; Monocytes # (A) 0.9 k/uL (0-1.0); Monocytes % (A) 12 %; Neutrophils # (A) 5.1 k/uL (1.3-7.7); Neutrophils % (A) 65 %; Platelet Count 405 k/uL (150-450); Poikilocytosis Marked; RBC 3.66 m/uL (4.30-5.90); RDW 19.4 % (11.5-15.5); WBC 7.9 k/uL (3.8-10.6)
[2018-08-15] MEDS: NICOTINE 14MG/24HR PATCH TRANSDERM SCH (08:43)
[2018-08-15] MEDS: FUROSEMIDE 10 MG/ML 4 ML VIAL IV SCH (08:43)
[2018-08-15] MEDS: PANTOPRAZOLE 40 MG/10 ML VIAL IVP SCH (08:43)
[2018-08-15 08:54] VITALS: RESP 18
[2018-08-15] MEDS: FOLIC ACID 1 MG TAB PO SCH (11:34)
[2018-08-15] MEDS: THIAMINE 100 MG TAB PO SCH (11:34)
[2018-08-15] MEDS: MULTIVITAMINS, THERA 1 EACH TAB PO SCH (11:34)
[2018-08-15] MEDS: PHYTONADIONE ORAL 5 MG/5 ML ORAL.SYRG PO SCH (11:35)
[2018-08-15 11:48] VITALS: BP 127/69; PULSE 96; TEMP 98.4
--- NOTE | 2018-08-15 11:59 | P.CRDCN ---
History of Present Illness Consult date: 08/15/18 Consult reason: congestive heart failure History of present illness: IMPRESSION / ASSESSMENT: Acute anemia Ascites and lower extremity edema secondary to liver disease. No evidence of heart failure Tobacco use and dependence Alcohol abuse Transaminitis secondary to alcohol abuse PLAN: Continue Lasix but will change to 20 mg oral daily Add Aldactone 50 mg daily, start today Cardiology will sign off and follow on an as-needed basis. Please recontact us for any concerns. HPI This is a 68-year-old male patient with no reported medical history other than tobacco use and dependence. Patient states he smokes 3-4 packs per day. He also drinks 3-412 ounce cans of beer per night. He complains of generalized weakness, shortness of breath with ambulating and numbness of his hands came into [facility] emergency center for evaluation. His heart rate was initially 128. Patient was found to have hemoglobin of 4. He is status post transfusion of 3 units packed RBCs with repeat hemoglobin of 7.6. Patient is status post EGD and biopsy as well as colonoscopy and polypectomy finding hiatal hernia, distal esophagitis, mild antral gastritis. Patient has been maintained on Lasix 40 mg IV daily with improvement of his lower extremity edema. Patient states he is 100% better since he came in. He is able to ambulate without significant shortness of breath. ROS: No fever chills or rigors, no cough, phlegm or expectoration, no nausea, vomiting or diarrhea, no hematuria, dysuria, Reports numbness in bilateral hands, no strokes or seizures, no skin lesions. EXAMINATION: Gen: This is a 68-year-old male. He is resting in bed appears to be comfortable and in no acute distress. Vital signs: Heart rate running in the 70s to 90, blood pressure 118/58, pulse ox 95% on room air HEENT: Head is atraumatic, normocephalic. Pupils equal, round. Sclerae is anicteric. NECK: Supple. LUNGS: Clear to auscultation. No wheezes or rhonchi. No intercostal retractions. HEART: Regular rate and rhythm. No murmur. ABDOMEN: Soft. +ascites, Bowel sounds are present. No masses. No tenderness. EXTREMITIES: 1+ left pedal edema. Trace pedal edema right. NEUROLOGICAL: Patient is awake, alert and oriented x3. Cranial nerves 2 through 12 are grossly intact. REVIEW OF LABS, ECG & MEDICAL DATA Hemoglobin 4.0, INR 1.7, total bilirubin 0.4, AST 606, ALT 237, alkaline phosphatase 142, INR 1.7 Troponins 0.012, normal ProBNP 688 EKG normal sinus rhythm with no acute ST-T wave changes. Echocardiogram reveals EF 55-60% with mild aortic valve sclerosis, trace to mild mitral regurgitation, trace tricuspid regurgitation, no pulmonary hypertension Chest x-ray shows chronic vaginal changes with mild cardiomegaly with tiny bilateral pleural effusions. Abdominal ultrasound, revealed contracted gallbladder with biliary sludge CAT scan of the abdomen and pelvis shows no acute process. Nurse practitioner note has been reviewed, I agree with documented findings and plan of care. Patient was seen and examined. Past Medical History Past Medical History: No Reported History History of Any Multi-Drug Resistant Organisms: None Reported Past Surgical History: No Surgical Hx Reported Past Anesthesia/Blood Transfusion Reactions: No Reported Reaction Past Psychological History: No Psychological Hx Reported Smoking Status: Heavy tobacco smoker Past Alcohol Use History: Daily Past Drug Use History: None Reported - Past Family History Brother(s) Family Medical History: Diabetes Mellitus Medications and Allergies Home Medications Medication Instructions Recorded Confirmed Type Aspirin EC [Ecotrin Low Dose] 162 - 405 mg PO DAILY PRN 08/12/18 08/12/18 History Calcium Carbonate [Tums] 500 mg PO QID PRN 08/12/18 08/12/18 History Allergies Allergy/AdvReac Type Severity Reaction Status Date / Time No Known Allergies Allergy Verified 08/12/18 13:16 Physical Exam Vitals: Vital Signs Temp Pulse Resp BP Pulse Ox 08/15/18 08:00 98 F 82 18 118/58 95 08/15/18 04:00 98.3 F 72 16 129/59 96 08/15/18 00:00 98.6 F 70 15 130/60 95 08/14/18 20:00 98.5 F 79 15 128/58 94 L 08/14/18 19:51 67 18 08/14/18 15:37 98.3 F 67 16 132/60 95 08/14/18 11:43 98 F 82 18 127/67 98 Intake and Output 08/14/18 08/15/18 08/15/18 22:59 06:59 14:59 Intake Total 180 Output Total 1200 2000 Balance -1020 -2000 Intake: Oral 180 Output: Urine 200 Stool 1000 2000 Other: Voiding Method Toilet Toilet Toilet # Voids 1 Weight 90.5 kg Results 08/15/18 06:10 08/15/18 06:10 Cardiac Enzymes 08/14/18 08/15/18 Range/Units 06:52 06:10 AST 190 H 96 H (17-59) U/L Coagulation 08/15/18 Range/Units 06:10 PT 11.5 (9.0-12.0) sec CBC 08/14/18 08/15/18 Range/Units 06:52 06:10 WBC 6.9 7.9 (3.8-10.6) k/uL RBC 3.52 L 3.66 L (4.30-5.90) m/uL Hgb 7.6 L 7.6 L (13.0-17.5) gm/dL Hct 27.8 L 28.2 L (39.0-53.0) % Plt Count 388 405 (150-450) k/uL Comprehensive Metabolic Panel 08/14/18 08/15/18 Range/Units 06:52 06:10 Sodium 139 139 (137-145) mmol/L Potassium 3.0 L 3.3 L (3.5-5.1) mmol/L Chloride 100 100 (98-107) mmol/L Carbon Dioxide 31 H 34 H (22-30) mmol/L BUN 8 L 7 L (9-20) mg/dL Creatinine 0.85 0.94 (0.66-1.25) mg/dL Glucose 79 95 (74-99) mg/dL Calcium 7.9 L 8.4 (8.4-10.2) mg/dL AST 190 H 96 H (17-59) U/L ALT 135 H 100 H (21-72) U/L Alkaline Phosphatase 112 112 (38-126) U/L Total Protein 7.0 7.3 (6.3-8.2) g/dL Albumin 2.9 L 2.9 L (3.5-5.0) g/dL Current Medications Generic Name Dose Route Start Last Admin Trade Name Freq PRN Reason Stop Dose Admin Acetaminophen 650 mg 08/12/18 16:06 Tylenol Tab PO Q6HR PRN Mild Pain or Fever > 100.5 Alprazolam 0.25 mg 08/12/18 19:32 Xanax PO TID PRN Anxiety Folic Acid 1 mg 08/13/18 12:00 08/14/18 11:38 Folic Acid PO 1 mg DAILY@1200 TOMY Administration Furosemide 40 mg 08/13/18 16:00 08/15/18 08:43 Lasix IV 40 mg DAILY TOMY Administration Hydromorphone HCl 0.5 mg 08/12/18 19:32 Dilaudid IVP Q4HR PRN Severe Pain Lorazepam 1 mg 08/12/18 15:07 Ativan IV Q2HR PRN CIWA 8 or 9 Lorazepam 1 mg 08/12/18 15:07 Ativan IV Q1HR PRN CIWA 10 to 15 Multivitamins 1 each 08/13/18 12:00 08/14/18 11:38 Theragran PO 1 each DAILY@1200 TOMY Administration Naloxone HCl 0.2 mg 08/12/18 16:06 Narcan IV Q2M PRN Opioid Reversal Nicotine 1 patch 08/13/18 09:00 08/15/18 08:43 Habitrol 14mg/24hr Patch TRANSDERM 1 patch DAILY TOMY Administration Ondansetron HCl 4 mg 08/12/18 16:06 Zofran IVP Q8HR PRN Nausea And Vomiting Pantoprazole Sodium 40 mg 08/12/18 21:00 08/15/18 08:43 Protonix IVP 40 mg BID TOMY Administration Phytonadione 10 mg 08/12/18 19:45 08/14/18 11:38 Vitamin K Oral PO 10 mg DAILY TOMY Administration Temazepam 15 mg 08/12/18 19:32 Restoril PO HS PRN Insomnia Thiamine HCl 100 mg 08/12/18 17:00 08/14/18 15:42 Vitamin B-1 PO 100 mg BID@1200,[facility] Administration Intake and Output 08/14/18 08/15/18 08/15/18 22:59 06:59 14:59 Intake Total 180 Output Total 1200 1999 Balance -1019 -1999 Intake: Oral 180 Output: Urine 200 Stool 1000 1999 Other: Voiding Method Toilet Toilet Toilet # Voids 1 Weight 90.5 kg 08/15/18 06:10 08/15/18 06:10
--- NOTE | 2018-08-15 21:38 | DS ---
DISCHARGE SUMMARY FINAL DIAGNOSES: 1. Severe anemia, microcytic possibly acute gastrointestinal bleed with status post EGD and colonoscopy showing hiatal hernia, distal esophagitis and mild antral gastritis and rectal polyps. 2. Congestive heart failure, acute exacerbation with acute on chronic diastolic dysfunction, ejection fraction 50-60 percent. 3. Increased AST/ALT, possibly alcoholic hepatitis. 4. Increased random blood sugar. 5. Hypertension. 6. Hyperlipidemia. 7. History of ETOH. 8. Possibly chronic liver disease secondary to ETOH. 9. History of nicotine dependence. DISCHARGE DISPOSITION: The patient is being discharged in stable condition with guarded prognosis. Total time taken: 35 minutes. HISTORY OF PRESENT ILLNESS: This 68-year-old gentleman with past medical history of multiple medical problems including anemia, secondary to EtOH. Patient treated symptomatically. Patient also had features of CHF, treated with diuretics. Patient improved significantly. 2D echo was as mentioned earlier. Abdomen pelvis CAT scan was also done. The patient was seen by Gastroenterology also. Liver enzymes stabilized. CT abdomen showed no acute abnormality. On exam, vital signs stable. CARDIOVASCULAR: S1, S2. Respiratory: A few scattered rhonchi. Abdomen soft. Nontender. Central nervous system: No focal deficits. Labs are WBC 7.9, hemoglobin 7.6, recommend close outpatient followup. DISCHARGE ADVICE AND MEDICATIONS: 1. Discharge diet is cardiac diet. 2. Follow up with two to three days. 3. Follow up with Dr. Pruett in 1 week. MEDICATIONS ARE: As follows: 1. No ETOH. 2. Ecotrin 160 mg daily p.r.n. 3. Tums p.r.n. 4. Aldactone 50 mg p.o. daily. 5. Folic acid 1 mg daily. 6. Lasix 20 mg daily. 7. Multivitamins one p.o. daily. 8. Thiamine 100 mg p.o. b.i.d. Once again, the patient is being discharged home in stable condition with guarded prognosis. MMODL / IJN: [id number] / MTDD
[2018-08-16] MEDS ORDERED: SPIRONOLACTONE 25 MG TAB PO SCH (09:00)
[2018-08-16] MEDS ORDERED: FUROSEMIDE 20 MG TAB PO SCH (09:00)
== END 2018-08-15 18:03 | disposition home or self-care (01) | DRG 377 ==
LOC: EC 12:31 → 3SCARD 16:06
PROVIDERS: ADMIT Hospitalist; ATTEND Hospitalist
PROC: 30233N1 Transfusion of Nonautologous Red Blood Cells into Peripheral Vein, Percutaneous Approach (ICD-10-PCS; 2018-08-12)
PROC: 0DB58ZX Excision of Esophagus, Via Natural or Artificial Opening Endoscopic, Diagnostic (ICD-10-PCS; 2018-08-14)
PROC: 0DBP8ZZ Excision of Rectum, Via Natural or Artificial Opening Endoscopic (ICD-10-PCS; 2018-08-14)
PROC: 0DB98ZX Excision of Duodenum, Via Natural or Artificial Opening Endoscopic, Diagnostic (ICD-10-PCS; principal; 2018-08-14 10:30)
PROC: 0DB68ZX Excision of Stomach, Via Natural or Artificial Opening Endoscopic, Diagnostic (ICD-10-PCS; 2018-08-14 10:30)
DX: K29.51 Unspecified chronic gastritis with bleeding (principal); I50.33 Acute on chronic diastolic (congestive) heart failure; D62 Acute posthemorrhagic anemia; R18.8 Other ascites; K62.1 Rectal polyp; I11.0 Hypertensive heart disease with heart failure; E78.5 Hyperlipidemia, unspecified; K44.9 Diaphragmatic hernia without obstruction or gangrene; K20.9 Esophagitis, unspecified; F17.210 Nicotine dependence, cigarettes, uncomplicated; R74.0 Nonspecific elevation of levels of transaminase and lactic acid dehydrogenase [LDH]; R79.1 Abnormal coagulation profile; K70.10 Alcoholic hepatitis without ascites; F10.20 Alcohol dependence, uncomplicated; K82.8 Other specified diseases of gallbladder; Z71.41 Alcohol abuse counseling and surveillance of alcoholic; Z83.3 Family history of diabetes mellitus; Z79.82 Long term (current) use of aspirin
CPT/HCPCS: 36415; 43239; 45385; 71046; 74176; 76705; 80053; 80074; 81001; 82272; 83735; 83880; 84484; 85025; 85610; 85730; 86850; 86900; 86901; 86920; 88305; 93005; 93306; 96372; 96374; 96375; 99291

== ENCOUNTER → 2018-12-30 | Outpatient (CLI) | payer MEDICARE ==
[2018-12-30 11:57] LABS: Prothrombin Time 10.7 sec (9.0-12.0)
[2018-12-30 15:44] LABS: ALT <8 U/L (10-49); AST 18 U/L (14-35); African American GFR (CKD) 89.9 (60.0-200.0); Albumin/Globulin Ratio 0.55 (1.60-3.17); Alkaline Phosphatase 132 U/L (41-126); Carbon Dioxide 23.1 mmol/L (21.6-31.8); Chloride 101 mmol/L (96-109); Globulin 5.6 g/dL (1.6-3.3); Glucose 118 mg/dL (70-110); Potassium 3.9 mmol/L (3.5-5.5); Sodium 138 mmol/L (135-145); Total Bilirubin 0.4 mg/dL (0.3-1.2); Total Protein 8.7 g/dL (6.2-8.2)
[2018-12-30 18:07] LABS: Iron Saturation 3.46 (15.00-50.00)
== END | disposition home or self-care (01) ==
LOC: LABWHC1 11:24
PROVIDERS: ATTEND Internal Medicine
DX: D50.9 Iron deficiency anemia, unspecified (principal); R74.8 Abnormal levels of other serum enzymes
CPT/HCPCS: 36415; 80053; 82728; 83540; 83550; 85610

== ENCOUNTER → 2019-01-11 | Outpatient (CLI) | payer MEDICARE ==
--- NOTE | 2019-01-11 08:06 | US ---
EXAMINATION TYPE: US abdomen complete DATE OF EXAM: 01/11/2019 COMPARISON: CT 08/12/2018, US 08/12/18 CLINICAL HISTORY: R74.8 Abnormal levels of other serum enzymes. Patient states no problems EXAM MEASUREMENTS: Liver Length: 14.6 cm Gallbladder Wall: 0.2 cm CBD: 0.5 cm Spleen: 12.1 cm Right Kidney: 11.5 x 5.3 x 4.4 cm Left Kidney: 11.5 x 4.9 x 4.6 cm Pancreas: Obscured by bowel gas Liver: Attenuating, echogenic, coarse echotexture Gallbladder: Two echogenic foci visualized within gallbladder neck, echogenic area visualized in fun dus, possible sludge Evidence for sonographic Story's sign: No CBD: wnl as visualized, distal portion obscured by bowel gas Spleen: Echogenic area visualized, measuring 0.6 cm, granuloma vs other Right Kidney: No hydronephrosis or masses seen Left Kidney: No hydronephrosis or masses seen Upper IVC: wnl Abd Aorta: Atherosclerotic changes. No sonographic evidence for AAA The liver is coarse and echogenic. The intrahepatic portion of the IVC and proximal abdominal aorta a re within normal limits. Common bile duct is unremarkable. The visualized portions of the pancrea s are homogenous. Kidneys are symmetric and free of hydronephrosis. No renal lesions are seen. IMPRESSION: 1. Cholelithiasis without sonographic evidence of acute cholecystitis. Gallstones are noted to be loc ated within the gallbladder neck in addition to biliary sludge. 2. Sonographic findings most commonly related to hepatic steatosis. Correlate with liver function jerry t results. 3. Obscuration of the pancreas by overlying bowel gas. 4. Benign splenic granulomas.
== END | disposition home or self-care (01) ==
LOC: RADUSWWP 06:46
PROVIDERS: ATTEND Internal Medicine
DX: K80.20 Calculus of gallbladder without cholecystitis without obstruction (principal); D73.89 Other diseases of spleen
CPT/HCPCS: 76700

== ENCOUNTER → 2019-02-21 | Outpatient (CLI) | payer MEDICARE ==
[2019-02-22 02:58] LABS: Alpha Fetoprotein, Tumor Mkr 3.6 ng/mL (0.0-7.9)
[2019-02-22 03:04] LABS: ALT 9 U/L (10-49); AST 27 U/L (14-35); African American GFR (CKD) 102.1 (60.0-200.0); Albumin/Globulin Ratio 0.49 (1.60-3.17); Alkaline Phosphatase 143 U/L (41-126); Calcium 8.8 mg/dL (8.7-10.3); Carbon Dioxide 21.8 mmol/L (21.6-31.8); Chloride 104 mmol/L (96-109); Ferritin 6.6 ng/mL (22.0-322.0); Globulin 5.5 g/dL (1.6-3.3); Glucose 97 mg/dL (70-110); Potassium 3.8 mmol/L (3.5-5.5); Sodium 139 mmol/L (135-145); Total Bilirubin 0.3 mg/dL (0.3-1.2); Total Protein 8.2 g/dL (6.2-8.2)
[2019-02-22 04:28] LABS: Blood Urea Nitrogen <5.0 mg/dL (9.0-27.0); Iron Saturation 8.68 (15.00-50.00)
== END ==
LOC: LABWHC1 15:23
PROVIDERS: ATTEND Internal Medicine
DX: D50.9 Iron deficiency anemia, unspecified (principal); R74.8 Abnormal levels of other serum enzymes
CPT/HCPCS: 36415; 80053; 82105; 82728; 83540; 83550; 85025; 85610

== ENCOUNTER → 2019-03-03 | Outpatient (CLI) | payer MEDICARE ==
[2019-03-03 11:09] LABS: HCT 38.8 % (39.0-53.0); HGB 9.4 gm/dL (13.0-17.5); RBC 4.54 m/uL (4.30-5.90)
[2019-03-03 11:10] LABS: Platelet Count 302 k/uL (150-450)
[2019-03-03 11:15] LABS: WBC 4.4 k/uL (3.8-10.6)
[2019-03-03 12:07] LABS: Lymphocytes # (M) 1.58 k/uL (1.0-4.8); Monocytes # (M) 0.44 k/uL (0-1.0); Neutrophils % (M) 54 %; Nucleated Red Blood Cells 0 /100 WBC (0-0); Total Cells Counted 100
== END | disposition home or self-care (01) ==
LOC: LABWHC1 09:49
PROVIDERS: ATTEND Internal Medicine
DX: D50.9 Iron deficiency anemia, unspecified (principal); R74.8 Abnormal levels of other serum enzymes
CPT/HCPCS: 36415; 85025

== ENCOUNTER 2019-12-01 10:49 | Observation (INO) | payer MEDICARE ==
[2019-12-01] MEDS ORDERED: PANTOPRAZOLE 40 MG/10 ML VIAL IVP STA (11:19)
--- NOTE | 2019-12-01 11:54 | ED ---
Abdominal Pain HPI - General Chief Complaint: Abdominal Pain Stated Complaint: Abd pain, weight loss Time Seen by Provider: 12/01/19 11:07 Source: patient Mode of arrival: ambulatory Limitations: no limitations - History of Present Illness Initial Comments: Patient is a 69-year-old male with history of anemia presenting to emergency Department with a chief complaint of abdominal pain and fatigue. Patient states she has been seeing a joint machine operator every 3 months. Patient states about 1.5 years ago he was admitted for severe anemia. Patient states soon after he had an upper and lower scope andneck findings. Patient states for the last few months he has increased fatigue and has been more pale to usual. Patient reports epigastric abdominal pain with approximately 35 pounds of unexplained weight loss with no appetite over the last 6 months. Patient states his liver enzymes are usually elevated due to alcohol abuse. Patient states he stopped drug and alcohol approximately one year ago. Patient reports a chronic cough, appearing more pale than usual and has an unsteady gait. Denies any night sweats or chills. He does report more diarrhea than usual which appears to be black. Patient states this is also around when per past few months. He does report nausea with occasional vomiting. - Related Data Home Medications Medication Instructions Recorded Confirmed Omeprazole 20 mg PO DAILY 12/01/19 12/01/19 Allergies Allergy/AdvReac Type Severity Reaction Status Date / Time No Known Allergies Allergy Verified 12/01/19 12:54 Review of Systems ROS Statement: Those systems with pertinent positive or pertinent negative responses have been documented in the HPI. ROS Other: All systems not noted in ROS Statement are negative. Past Medical History Past Medical History: No Reported History Additional Past Medical History / Comment(s): low iron, past ETOH abuse - has quit History of Any Multi-Drug Resistant Organisms: None Reported Past Surgical History: No Surgical Hx Reported Past Anesthesia/Blood Transfusion Reactions: No Reported Reaction Past Psychological History: No Psychological Hx Reported Smoking Status: Former smoker Past Alcohol Use History: None Reported Past Drug Use History: None Reported - Past Family History Brother(s) Family Medical History: Diabetes Mellitus General Exam Limitations: no limitations General appearance: alert, in no apparent distress Head exam: Present: atraumatic, normocephalic, normal inspection Eye exam: Present: normal appearance, PERRL, EOMI Pupils: Present: normal accommodation ENT exam: Present: normal exam, normal oropharynx, mucous membranes moist, TM's normal bilaterally, normal external ear exam Neck exam: Present: normal inspection, full ROM. Absent: tenderness Respiratory exam: Present: normal lung sounds bilaterally. Absent: respiratory distress, wheezes, rales Cardiovascular Exam: Present: regular rate, normal rhythm, normal heart sounds GI/Abdominal exam: Present: soft, tenderness (Gastric abdominal pain). Absent: distended, guarding, rebound, rigid Extremities exam: Present: normal inspection, full ROM. Absent: tenderness Back exam: Present: normal inspection, full ROM. Absent: tenderness Neurological exam: Present: alert, oriented X3 Psychiatric exam: Present: normal affect, normal mood Skin exam: Present: warm, dry, intact, normal color Course Vital Signs 12/01/19 12/01/19 12/01/19 11:00 12:20 13:57 Temperature 97.6 F 97.5 F L Pulse Rate 133 H 112 H 101 H Respiratory 20 18 18 Rate Blood Pressure 93/54 100/68 99/74 O2 Sat by Pulse 97 97 98 Oximetry 12/01/19 12/01/19 14:49 16:25 Temperature Pulse Rate 101 H 107 H Respiratory 18 18 Rate Blood Pressure 106/72 108/78 O2 Sat by Pulse 98 98 Oximetry Medical Decision Making - Medical Decision Making Patient is 69-year-old male presenting to the emergency room with a chief complaint of abdominal pain and fatigue. On physical exam patient does have some pale conjunctiva with slightly pale mucous membranes. There appears to be some epigastric abdominal pain. Negative Story sign. Patient has history of chronic alcohol abuse but has not and drinking for approximately one year. The lab was not able to obtain blood samples due hypercoagulation which led to delay in admission time. Patient was slightly hypotensive and tachycardic, he was given fluids. CT of abdomen and pelvis reveals mild segment of uncomplicated acute colitis. Stool occult was negative. Patient will be admitted for further medical management. Case discussed with Dr. Ness. Admitting is Dr quinonez, GI consulted - Lab Data Result diagrams: 12/01/19 11:53 Lab Results 12/01/19 12/01/19 12/01/19 Range/Units 11:53 11:53 12:01 PT 12.4 H (9.0-12.0) sec INR 1.2 H (<1.2) Sodium 137 (137-145) mmol/L Potassium 3.5 (3.5-5.1) mmol/L Chloride 100 (98-107) mmol/L Carbon Dioxide 20 L (22-30) mmol/L Anion Gap 17 mmol/L BUN 4 L (9-20) mg/dL Creatinine 1.10 (0.66-1.25) mg/dL Est GFR (CKD-EPI)AfAm 79 (>60 ml/min/1.73 sqM) Est GFR (CKD-EPI)NonAf 69 (>60 ml/min/1.73 sqM) Glucose 163 H (74-99) mg/dL Lactic Ac Sepsis Rflx Plasma Lactic Acid Juan Daniel (0.7-2.0) mmol/L Calcium 9.5 (8.4-10.2) mg/dL Total Bilirubin 1.2 (0.2-1.3) mg/dL AST 61 H (17-59) U/L ALT 60 H (4-49) U/L Alkaline Phosphatase 254 H (38-126) U/L Total Protein 9.6 H (6.3-8.2) g/dL Albumin 3.0 L (3.5-5.0) g/dL Amylase <30 L (30-110) U/L Lipase 17 L (23-300) U/L Stool Occult Blood Negative (Negative) 12/01/19 12/01/19 12/01/19 Range/Units 12:30 14:25 16:50 PT (9.0-12.0) sec INR (<1.2) Sodium (137-145) mmol/L Potassium (3.5-5.1) mmol/L Chloride (98-107) mmol/L Carbon Dioxide (22-30) mmol/L Anion Gap mmol/L BUN (9-20) mg/dL Creatinine (0.66-1.25) mg/dL Est GFR (CKD-EPI)AfAm (>60 ml/min/1.73 sqM) Est GFR (CKD-EPI)NonAf (>60 ml/min/1.73 sqM) Glucose (74-99) mg/dL Lactic Ac Sepsis Rflx Y Plasma Lactic Acid Juan Daniel 2.2 H* 1.7 (0.7-2.0) mmol/L Calcium (8.4-10.2) mg/dL Total Bilirubin (0.2-1.3) mg/dL AST (17-59) U/L ALT (4-49) U/L Alkaline Phosphatase (38-126) U/L Total Protein (6.3-8.2) g/dL Albumin (3.5-5.0) g/dL Amylase (30-110) U/L Lipase (23-300) U/L Stool Occult Blood (Negative) - EKG Data EKG Comments: Sinus tachycardia with no ischemic changes. Ventricular rate 115, WV 146, QRS 74, QTC 460. Disposition Clinical Impression: Fatigue, Abdominal pain, Colitis Disposition: ADMITTED IP TO THIS [facility] Condition: Good Instructions (If sedation given, give patient instructions): Abdominal Pain (ED) Additional Instructions: He will be admitted. Is patient prescribed a controlled substance at d/c from ED?: No Referrals: Arpita Glass MD [Primary Care Provider] - 1-2 days Time of Disposition: 17:49
--- NOTE | 2019-12-01 12:16 | XR ---
EXAMINATION TYPE: XR KUB DATE OF EXAM: 12/01/2019 12:07 PM CLINICAL HISTORY: Abdominal pain. Nausea. TECHNIQUE: Upright images of the abdomen and pelvis were obtained COMPARISON: None. FINDINGS: The visualized bowel gas pattern is nondistended. There is no visceromegaly or pneumoperito neum vascular calcifications. Degenerative changes of the spine, sacroiliac joints, and hips. IMPRESSION: Nonobstructive bowel gas pattern.
[2019-12-01 12:29] LABS: ALT 60 U/L (4-49); AST 61 U/L (17-59); African American GFR (CKD) 79 (>60 ml/min/1.73 sqM); Alkaline Phosphatase 254 U/L (38-126); Amylase <30 U/L (30-110); Anion Gap 17 mmol/L; Blood Urea Nitrogen 4 mg/dL (9-20); Calcium 9.5 mg/dL (8.4-10.2); Carbon Dioxide 20 mmol/L (22-30); Chloride 100 mmol/L (98-107); Glucose 163 mg/dL (74-99); Non-African American GFR(CKD) 69 (>60 ml/min/1.73 sqM); Potassium 3.5 mmol/L (3.5-5.1); Sodium 137 mmol/L (137-145); Total Bilirubin 1.2 mg/dL (0.2-1.3); Total Protein 9.6 g/dL (6.3-8.2)
[2019-12-01 12:30] LABS: INR 1.2 (<1.2); Prothrombin Time 12.4 sec (9.0-12.0)
--- NOTE | 2019-12-01 13:01 | CT ---
EXAMINATION TYPE: CT abdomen pelvis w con DATE OF EXAM: 12/01/2019 COMPARISON: CT abdomen and pelvis August 12, 2018 HISTORY: LLQ pain CT DLP: 1086.3 mGycm, Automated Exposure Control for Dose Reduction was Utilized. CONTRAST: CT scan of the abdomen and pelvis is performed without oral and with IV Contrast, patient injected wi th 100 mL of Isovue 300. FINDINGS: LUNG BASES: No significant abnormality is appreciated. LIVER/GB: Liver shows no marked low-density consistent with marked hepatic fatty infiltration. PANCREAS: Mild generalized atrophy redemonstrated. SPLEEN: Location of punctate alteration scattered throughout the spleen consistent with products of o ld granulomatous disease. ADRENALS: No significant abnormality is seen. KIDNEYS: Subcentimeter low dense lesion lower pole right kidney. Symmetric cortical medullary uptake and excretion without hydronephrosis seen bilaterally. Some cortical thinning bilaterally. BOWEL: Suboptimal evaluation of bowel without enteric contrast. No suspicious small or large bowel di latation. Stomach poorly distended and thus suboptimally evaluated. [id number] wall thickening from hepatic flexure through the splenic flexure including entire left colon and redundant sigmoid co manpreet up to level of the rectum. Mild vasa engorgement in the left lower quadrant and transverse colon for reference. No pneumoperitoneum. No well-formed fluid collection. PROSTATE/SEMINAL VESICLES: No gross abnormality seen. LYMPH NODES: No greater than 1cm abdominal or pelvic lymph nodes are appreciated. OSSEOUS STRUCTURES: Moderate disc space narrowing and vacuum disc phenomenon L5-S1 level. Moderate mu ltilevel anterior and lateral spurring. Facet arthropathy lower lumbar levels. OTHER: Moderate calcified plaque of the aorta extends into branch vessels. IMPRESSION: New mild long segment uncomplicated acute colitis from hepatic flexure to rectum. Differe ntial includes infectious and/or inflammatory etiologies.
[2019-12-01] MEDS ORDERED: NALOXONE 0.4 MG/ML 1 ML VIAL IV PRN (17:36)
[2019-12-01] MEDS ORDERED: MORPHINE SULFATE 4 MG/ML SYRINGE IV PRN (17:36)
[2019-12-01] MEDS ORDERED: LORazepam 2 MG/ML INJ IV PRN (17:36)
[2019-12-01] MEDS ORDERED: HYDROmorphone 0.5 MG/0.5 ML SYRINGE IVP PRN (17:36)
[2019-12-01] MEDS ORDERED: ACETAMINOPHEN TAB 325 MG TAB PO PRN (17:36)
[2019-12-01] MEDS ORDERED: SODIUM CHLORIDE 0.9% 1,000 ML IV STA (17:43)
[2019-12-01] MEDS ORDERED: HYDROcodone/APAP 5-325MG 1 EACH TAB PO PRN (20:55)
[2019-12-01] MEDS: HEPARIN SODIUM,PORCINE 5,000 UNIT/ML 1 ML VIAL SQ SCH (21:58)
[2019-12-01] MEDS: LEVOFLOXACIN 500MG-D5W PMX 500 MG in DEXTROSE/WATER 1 100ML.BAG IVPB SCH (21:58)
[2019-12-01] MEDS: SODIUM CHLORIDE 0.9% 1,000 ML IV SCH (21:59)
[2019-12-01] MEDS: PANTOPRAZOLE 40 MG/10 ML VIAL IVP SCH (22:01)
--- NOTE | 2019-12-01 23:06 | HP ---
HISTORY AND PHYSICAL DATE OF SERVICE: 12/01/2019 CHIEF COMPLAINTS: Abdominal pain, weight loss, fatigue and weakness. HISTORY OF PRESENT ILLNESS: This 69-year-old gentleman with a past medical history of multiple medical problems, including low iron, apparent history of EtOH abuse, being followed by Dr. Glass in the outpatient setting, was not feeling well over the past several days. The patient had abdominal pain and fatigue. The pain was diffuse. The patient was seeing a pretzel twister previously. The patient apparently had severe anemia previously and was admitted last year with anemia which was secondary to showed multiple findings, including hiatal hernia, distal esophagitis, antral gastritis and rectal polyps. The patient also had CHF, acute exacerbation, during that time. The patient also was thought to have chronic liver disease secondary to ETOH, but currently the patient has mostly abdominal symptoms. The patient also had significant fatigue and weight loss of about 35 pounds over for the past several months. The patient apparently stopped alcohol and drugs about a year ago. Because of increasing difficulties, the patient came to [facility] and was admitted for further evaluation and treatment. Interestingly, the CBC could not be done because of the cold agglutinins, even though patient appears to be pale in the outpatient setting. The patient had multiple other abnormalities also. Plasma lactic acid 2.2. There is no history of any fever, rigor or chills at this time. The patient also had an CT scan of the abdomen and pelvis which showed new segment and uncomplicated acute colitis from hepatic flexure to the rectum. The patient is being closely monitored. There is no history of any fever, rigor or chills at this time. COVID-19 test is pending at this time. PAST MEDICAL HISTORY: History of CHF, history of ETOH, history of anemia. HOME MEDICATIONS: Omeprazole 20 mg daily. ALLERGIES: NONE. FAMILY HISTORY: History of diabetes mellitus in the family. SOCIAL HISTORY: History of smoking and history of alcohol previously. REVIEW OF SYSTEMS: ENT: Diminished hearing. Diminished vision. CARDIOVASCULAR SYSTEM: No angina, palpitations. RESPIRATORY SYSTEM: As mentioned earlier. GI: No nausea, vomiting. : No dysuria or retention. NERVOUS SYSTEM: No numbness, weakness. ALLERGY/IMMUNOLOGY: No asthma, hayfever. MUSCULOSKELETAL: As mentioned earlier. HEMATOLOGY/ONCOLOGY: No history of anemia. ENDOCRINE: No history of diabetes, hypothyroidism. CONSTITUTIONAL: As mentioned earlier. DERMATOLOGY: Negative. RHEUMATOLOGY: Negative. PSYCHIATRY: As mentioned earlier. PHYSICAL EXAMINATION: Patient alert and oriented x3. Pulse is 101, blood pressure 100/69, respiration 18, temperature 98 degrees, pulse ox 92% on room air. HEENT: Conjunctivae normal. Oral mucosa moist. NECK: No jugular venous distention. No carotid bruit. No lymph node enlargement. CARDIOVASCULAR SYSTEM: S1, S2 muffled. No S3. No S4. RESPIRATORY SYSTEM: Breath sounds diminished at the bases. No rhonchi. No crackles. ABDOMEN: Soft. Mild diffuse distention. Mild diffuse discomfort. No guarding. No rigidity. No mass palpable. LEGS: No edema. No swelling. NERVOUS SYSTEM: Higher functions as mentioned earlier. Moves all 4 limbs. No focal motor or sensory deficit. LYMPHATICS: No lymph node palpable in neck, axillae or groin. SKIN: No ulcer, rash, bleeding. JOINTS: No active deforming arthropathy. LABS: CBC unavailable. Glucose 163 and lactic acid 2.2. AST 61, ALT 60, alkaline phosphatase 254. ASSESSMENT: 1. Abdominal pain and fatigue; possibly acute colitis involving the left-sided colon from hepatic flexure to rectum for evaluation. Rule out inflammatory bowel disease. 2. Possible anemia. 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 4. Increased AST and ALT secondary to chronic liver disease. 5. Possible cirrhosis of the liver with hypoalbuminemia. 6. History of ETOH. 7. History of congestive heart failure with chronic diastolic dysfunction. 8. History of nicotine dependence. 9. Elevated lactic acid. RECOMMENDATIONS AND DISCUSSION: In this 69-year-old gentleman who presented with multiple complex medical issues, at this time I recommend to continue the current medications, continue symptomatic treatment. Otherwise at this time I recommend gastroenterology evaluation. I would also recommend empiric antibiotics for the colitis. Other than that, I would also recommend hematology/oncology evaluation for the cold agglutinin disease, which could be related to his chronic liver disease. Hepatitis panel also will be ordered. Prognosis is guarded because of multiple complex medical issues. Symptomatic treatment will be provided. Further recommendations to follow. A copy of this dictation is being forwarded to Dr. Glass, who is the primary physician. See orders for further information. MMODL / IJN: [id number] / [facility]
[2019-12-02 04:19] LABS: Appearance,Urine Clear (Clear); Bilirubin,Urine 1+ (Negative); Blood,Urine Negative (Negative); Color,Urine Yellow; Glucose,Urine (UA) Negative (Negative); Hyaline Casts,Urine 12 /lpf (0-2); Ketones,Urine 1+ (Negative); Leukocyte Esterase,Urine Negative (Negative); Mucus,Urine Rare /hpf; Nitrite,Urine Negative (Negative); PH, Urine 6.5 (5.0-8.0); Protein,Urine 1+ (Negative); RBC,Urine 6 /hpf (0-5); Squamous Epithelial Cell,Urine <1 /hpf (0-4); WBC,Urine 2 /hpf (0-5)
[2019-12-02 04:20] LABS: Specific Gravity,Urine >1.050 (1.001-1.035)
[2019-12-02 06:24] LABS: ALT 8 U/L (4-49); AST 31 U/L (17-59); African American GFR (CKD) >90 (>60 ml/min/1.73 sqM); Albumin 2.1 g/dL (3.5-5.0); Alkaline Phosphatase 152 U/L (38-126); Anion Gap 7 mmol/L; Blood Urea Nitrogen 4 mg/dL (9-20); C Reactive Protein 35.6 mg/L (<10.0); Carbon Dioxide 24 mmol/L (22-30); Chloride 104 mmol/L (98-107); Glucose 93 mg/dL (74-99); Non-African American GFR(CKD) 89 (>60 ml/min/1.73 sqM); Potassium 3.2 mmol/L (3.5-5.1); Sodium 135 mmol/L (137-145); Total Bilirubin 0.7 mg/dL (0.2-1.3); Total Protein 6.8 g/dL (6.3-8.2)
[2019-12-02] MEDS ORDERED: Potassium Replacement Protocol 1 EACH MISC MISCELLANE PRN ×2 (06:37→13:18)
[2019-12-02 07:03] LABS: Basophils % (A) 1 %; Eosinophils % (A) 1 %; HCT 39.7 % (39.0-53.0); HGB 12.2 gm/dL (13.0-17.5); Lymphocytes # (A) 1.1 k/uL (1.0-4.8); Lymphocytes % (A) 17 %; MCH 26.3 pg (25.0-35.0); MCHC 30.6 g/dL (31.0-37.0); Mean Platelet Volume 10.7; Monocytes # (A) 0.6 k/uL (0-1.0); Monocytes % (A) 9 %; Neutrophils # (A) 4.8 k/uL (1.3-7.7); Neutrophils % (A) 71 %; Platelet Count 326 k/uL (150-450); RBC 4.62 m/uL (4.30-5.90); RDW 14.5 % (11.5-15.5); WBC 6.8 k/uL (3.8-10.6)
[2019-12-02] MEDS ORDERED: PANTOPRAZOLE 40 MG TABLET PO SCH (07:30)
[2019-12-02] MEDS: POTASSIUM CHLORIDE ER 20 MEQ TAB.ER PO SCH ×2 (08:24→08:32)
[2019-12-02] MEDS: PANTOPRAZOLE 40 MG/10 ML VIAL IVP SCH (08:25)
[2019-12-02] MEDS: HEPARIN SODIUM,PORCINE 5,000 UNIT/ML 1 ML VIAL SQ SCH ×2 (08:26→21:49)
--- NOTE | 2019-12-02 09:55 | XR ---
EXAMINATION TYPE: XR chest 1V portable DATE OF EXAM: 12/02/2019 COMPARISON: 08/12/2018 HISTORY: Shortness of breath TECHNIQUE: Single frontal view of the chest is obtained. FINDINGS: There is no focal air space opacity, pleural effusion, or pneumothorax seen. The cardiac silhouette size is within normal limits. The osseous structures are intact. Hypertrophic and degene rative change of the spine. Diffuse hyperinflation. Arthropathy of the shoulders. No overt failure. IMPRESSION: 1. COPD with no definite acute infiltrate.
[2019-12-02 10:18] LABS: Reticulocyte % 2.1 % (0.5-2.0)
[2019-12-02 10:22] LABS: LDH 273 U/L (313-618)
[2019-12-02 12:44] LABS: Hepatitis A Antibody IgM Non-Reactive (Non-Reactive); Hepatitis B Core IgM Non-Reactive (Non-Reactive); Hepatitis B Surface Antigen Non-Reactive (Non-Reactive); Hepatitis C IgG Antibody Non-Reactive (Non-Reactive)
[2019-12-02] MEDS: SODIUM CHLORIDE 0.9% 1,000 ML IV SCH (12:47)
[2019-12-02] MEDS ORDERED: Magnesium Replacement Protocol 1 EACH MISC MISCELLANE PRN (13:18)
--- NOTE | 2019-12-02 14:25 | P.CONS ---
History of Present Illness - Reason for Consult Consult date: 12/02/19 Cold Agglutin Requesting physician: Kurt Subramanian - Chief Complaint LLQ Abdominal Pain - History of Present Illness Mr. Jain is a 69 year old male patient who presented to [facility] with complaints of abdominal pain. He has a known history of anemia, last scope abnormal per patient 1-2 years ago. He states he has been having increased fatigue, unexplained weight loss of approximately 35lbs in past year, and now with this persistent abdominal pain that has been worsening over the past few weeks. He does follow with GI as outpatient. CT abdomen and pelvis were reviewed, ?colitis He admits to history of alcohol and drug abuse, which he has sustained from for almost a year. He has dizzyness and unsteady gait at times. Positive black stools - diarrhea 3-4x a day. He also has occasional nausea and episodes of vomiting. There is mention of cold agglutinin although this is not present in any of his history and patient does not recall this. Apparently there was concern by the coagulation of his blood after being draw. Hematology has been consulted to further evaluate for this and his history of anemia. Review of Systems A 14 point reiew of systems assessed and completed and all negative except HPI Past Medical History Past Medical History: No Reported History Additional Past Medical History / Comment(s): low iron, past ETOH abuse - has quit clotting disorder? History of Any Multi-Drug Resistant Organisms: None Reported Past Surgical History: No Surgical Hx Reported Past Anesthesia/Blood Transfusion Reactions: No Reported Reaction Past Psychological History: No Psychological Hx Reported Smoking Status: Former smoker Past Alcohol Use History: None Reported Past Drug Use History: None Reported - Past Family History Brother(s) Family Medical History: Diabetes Mellitus Medications and Allergies Home Medications Medication Instructions Recorded Confirmed Type Omeprazole 20 mg PO DAILY 12/01/19 12/01/19 History Allergies Allergy/AdvReac Type Severity Reaction Status Date / Time No Known Allergies Allergy Verified 12/01/19 12:54 Physical Exam Vitals: Vital Signs Temp Pulse Pulse Resp BP BP BP 12/02/19 09:00 98.0 F 100 17 100/62 12/02/19 04:19 97.9 F 87 16 96/63 89/51 12/01/19 20:59 98.1 F 93 18 103/68 119/72 12/01/19 18:32 98.0 F 109 H 20 127/79 12/01/19 18:16 98 F 101 H 18 100/69 12/01/19 17:46 104 H 18 95/53 12/01/19 16:25 107 H 18 108/78 12/01/19 14:49 101 H 18 106/72 12/01/19 13:57 101 H 18 99/74 Pulse Ox 12/02/19 09:00 97 12/02/19 04:19 96 12/01/19 20:59 96 12/01/19 18:32 92 L 12/01/19 18:16 98 12/01/19 17:46 98 12/01/19 16:25 98 12/01/19 14:49 98 12/01/19 13:57 98 Intake and Output 12/01/19 12/02/19 12/02/19 22:59 06:59 14:59 Intake Total 100 Balance 100 Intake: Oral 100 Other: # Voids 1 Weight 80.286 kg - Constitutional General appearance: cooperative, no acute distress - EENT Eyes: EOMI, PERRLA, dentition normal ENT: NA/AT, normal oropharynx - Neck Neck: normal ROM - Respiratory Respiratory: bilateral: CTA (no increased effort, occassional expiratory wheezes) - Cardiovascular Rhythm: regular Heart sounds: normal: S1, S2 - Gastrointestinal General gastrointestinal: normal bowel sounds, soft, tenderness - Integumentary Integumentary: pale - Neurologic non-focal - Musculoskeletal Musculoskeletal: generalized weakness, strength equal bilaterally - Psychiatric Psychiatric: A&O x's 3, appropriate affect, intact judgment & insight Results CBC & Chem 7: 12/02/19 05:47 12/02/19 05:47 Labs: Abnormal Lab Results - Last 24 Hours (Table) 12/01/19 12/02/19 12/02/19 Range/Units 12:30 03:50 05:47 Hgb 12.2 L (13.0-17.5) gm/dL MCHC 30.6 L (31.0-37.0) g/dL Retic Count (0.5-2.0) % Sodium (137-145) mmol/L Potassium (3.5-5.1) mmol/L BUN (9-20) mg/dL Plasma Lactic Acid Juan Daniel 2.2 H* (0.7-2.0) mmol/L Calcium (8.4-10.2) mg/dL Alkaline Phosphatase (38-126) U/L Lactate Dehydrogenase (313-618) U/L C-Reactive Protein (<10.0) mg/L Albumin (3.5-5.0) g/dL Ur Specific Central >1.050 H (1.001-1.035) Urine Protein 1+ H (Negative) Urine Ketones 1+ H (Negative) Urine Bilirubin 1+ H (Negative) Urine RBC 6 H (0-5) /hpf Hyaline Casts 12 H (0-2) /lpf Urine Mucus Rare H (None) /hpf 12/02/19 12/02/19 12/02/19 Range/Units 05:47 05:47 05:47 Hgb (13.0-17.5) gm/dL MCHC (31.0-37.0) g/dL Retic Count 2.1 H (0.5-2.0) % Sodium 135 L (137-145) mmol/L Potassium 3.2 L (3.5-5.1) mmol/L BUN 4 L (9-20) mg/dL Plasma Lactic Acid Juan Daniel (0.7-2.0) mmol/L Calcium 8.0 L (8.4-10.2) mg/dL Alkaline Phosphatase 152 H (38-126) U/L Lactate Dehydrogenase 273 L (313-618) U/L C-Reactive Protein 35.6 H (<10.0) mg/L Albumin 2.1 L (3.5-5.0) g/dL Ur Specific Central (1.001-1.035) Urine Protein (Negative) Urine Ketones (Negative) Urine Bilirubin (Negative) Urine RBC (0-5) /hpf Hyaline Casts (0-2) /lpf Urine Mucus (None) /hpf Chest x-ray: report reviewed CT scan - abdomen: report reviewed CT scan - pelvis: report reviewed Assessment and Plan (1) Abdominal pain Current Visit: Yes Status: Acute Code(s): R10.9 - UNSPECIFIED ABDOMINAL PAIN SNOMED Code(s): 78995877 (2) Colitis Current Visit: Yes Status: Acute Code(s): K52.9 - NONINFECTIVE GASTROENTERITIS AND COLITIS, UNSPECIFIED SNOMED Code(s): 38335809 Plan: Assessment and Recommendations: Mr. Jain presents with lower abdominal pain and a history of anemia, there was also concern for cold agglutinin antibodies. - Current hemoglobin is stable - Will check hemolysis work-up - Check anemia work-up for blood loss with black stools in complaints - Will check Cold Aglutinin - Order placed to ensure blood draws are with warmer to ensure accurate readings All other complaints and issues of this stay per GI and primary teams Physician Attest: I have completed the full history and physical and have developed the above assessment and plan, agree with dictation, dictated as a scribe.
--- NOTE | 2019-12-02 14:52 | PN ---
PROGRESS NOTE DATE OF SERVICE: 12/02/2019 This is a 69-year-old gentleman admitted with abdominal pain, weight loss, fatigue and weakness is being evaluated. Patient had apparent colitis. The patient also had apparently a . Also CBC could not be done yesterday but today it is 12.2, sodium is 130, potassium 3.2. Patient started on broad-spectrum IV antibiotics. Hepatitis panel is negative. Hematology/Oncology evaluation has been sought. PAST MEDICAL HISTORY: Reviewed. REVIEW OF SYSTEMS: CARDIOVASCULAR SYSTEM: No angina. RESPIRATION: As mentioned earlier. GI: As mentioned earlier. : No dysuria. NERVOUS SYSTEM: No numbness or weakness. CURRENT MEDICATIONS: Reviewed and include: Tylenol p.r.n., [place] 5 mg, Heparin, Dilaudid, Levaquin, Ativan, morphine sulfate, Narcan, Protonix. Doses are reviewed. PHYSICAL EXAMINATION: Alert and oriented x3, pulse 87, blood pressure 96/60, respirations 16, temperature 97.9, pulse ox 96% on room air. HEENT: Conjunctivae normal. Oral mucosa moist. NECK: No jugular venous distension, no lymph node enlargement. CARDIOVASCULAR SYSTEM: S1, S2, muffled. RESPIRATION: Breath sounds diminished at the bases, scattered rhonchi, no crackles. ABDOMEN: Soft, diffuse distention present. LEGS: No edema, no cyanosis. NERVOUS SYSTEM: No focal deficits. LABS: 1. At this time shows WBC 6.8, hemoglobin 12.2, sodium 130, potassium 3.2. Abdominal pelvis CAT scan shows [place] segment uncomplicated acute colitis from hepatic flexure to rectum. Liver shows hepatic fatty infiltration. Assessment. 2. Abdominal pain and fatigue. Possible acute colitis involving the left side of the colon from rectum possibly rule out inflammatory bowel disease. Rule out ischemic colitis. 3. Anemia for evaluation. 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 5. Increased AST ALT secondary to chronic liver disease and liver disease. 6. Possible cirrhosis liver with hypoalbuminemia. 7. History of ETOH. 8. History of congestive heart failure with chronic diastolic dysfunction. 9. Remote history of nicotine dependence. 10.Elevated lactic acid, present on admission. 11.Anemia, normocytic anemia. 12.Hypokalemia. RECOMMENDATION: This 69-year-old gentleman who presented with multiple complex medical issues. We will monitor the patient closely, continue the current medical management and treatment, recommend potassium supplementation, magnesium supplementation. Other than that, stop the IV fluids and adjust the diet. Await Hematology Oncology consultation. Continue with empiric antibiotics. Guarded prognosis. Further recommendations to follow. MMODL / IJN: [id number] / MTDD
[2019-12-02 19:17] LABS: Rheumatoid Factor, Qnt 8 IU/mL (0-15)
[2019-12-02 20:05] LABS: Protein, Total 6.4 g/dL (6.2-8.2)
[2019-12-02] MEDS: LEVOFLOXACIN 500MG-D5W PMX 500 MG in DEXTROSE/WATER 1 100ML.BAG IVPB SCH (21:49)
--- NOTE | 2019-12-02 22:55 | CONS ---
CONSULTATION DATE OF SERVICE: 12/02/2019 REASON FOR CONSULTATION: Abdominal pain, nausea, vomiting, fatigue and HISTORY OF PRESENT ILLNESS: The patient is a 69-year-old white male who came into the emergency room complaining of abdominal pain, nausea, vomiting, not feeling well for the last 3 or 4 days' duration. He describes the pain to be located mostly in the epigastric area with a few episodes of nausea and vomiting. He thinks he has lost about 10 or 15 pounds in the last 6 months' duration. He does have history of heavy alcohol abuse. He denies any prior history of peptic ulcer disease. He denies any recent NSAID use. His appetite has been poor. On review of his records, he did have an upper endoscopy as well as colonoscopy in August of [address] Collado. Upper endoscopy revealed hernia hernia, reflux esophagitis and some gastritis. Colonoscopy revealed a small rectal polyp. PAST MEDICAL HISTORY: Significant for hypertension and gastroesophageal reflux disease. MEDICATIONS: Medications at home include omeprazole 20 mg daily. SOCIAL HISTORY: Former smoker. Heavy alcohol abuse. Quit drinking a few months ago. FAMILY HISTORY: Brother has diabetes mellitus. REVIEW OF SYSTEMS: CARDIOPULMONARY: No chest pain or shortness of breath. GENITOURINARY: No dysuria or hematuria. MUSCULOSKELETAL: Complains of chronic back pain. NEUROLOGY: Unremarkable. PSYCHIATRY: Unremarkable. ENT/VISION: Unremarkable. CONSTITUTIONAL: Weight loss of 25 pounds. No fever, chills, night sweats. HEMATOLOGY: Unremarkable. PHYSICAL EXAMINATION: He appears comfortable. No apparent distress. VITAL SIGNS: Stable. Blood pressure is 103/55, pulse rate 81, temperature 97.6. HEENT examination unremarkable. Conjunctivae pink. Sclerae anicteric. Oral cavity no lesions. NECK: No JVD or lymph node enlargement. CHEST: Clear to auscultation. HEART: Regular rate and rhythm. ABDOMEN: Benign. Bowel sounds are positive. No organomegaly. EXTREMITIES: No pedal edema. SKIN: No rashes. NEUROLOGIC: Alert and oriented x3. No focal deficits. LABS: Labs done today show WBC 6.8, hemoglobin 12.2, platelets normal. Basic metabolic panel is within normal limits. INR is 1.2. AST and ALT are 31 and 8, respectively. T bilirubin is 0.7, alkaline phosphatase 152. BUN and creatinine are 4 and 0.8, respectively. Hepatitis serologies for A, B and C were negative. Stool occult blood was negative. IMPRESSION: 1. This is a patient who was admitted to the hospital with abdominal pain associated with nausea, vomiting and not feeling well for the last 3 or 4 days' duration. He has history of gastroesophageal reflux disease and has been on omeprazole 20 mg daily. Since being in the hospital he was started on Protonix 40 mg daily, and his symptoms have completely resolved. In fact, he is on a clear liquid diet, tolerating well and requesting us to advance the diet. He did have an EGD and colonoscopy by Dr. Collado in August of 2018 that showed evidence of LA grade B reflux esophagitis, small hiatal hernia, mild gastritis and a rectal polyp. CT of the abdomen did not show any significant upper GI pathology. 2. Mild anemia. 3. History of alcohol abuse; quit drinking 3 months ago. 4. Progressive weight loss. He did have a CT of the abdomen and pelvis done yesterday in the emergency room that did show new mild long segment uncomplicated acute colitis in the hepatic flexure to the rectum; otherwise unremarkable. 5. Colitis noted on CT scan with thickened colon from the rectum to the hepatic flexure. Clinically patient does not have any diarrhea or lower abdominal pain. Last colonoscopy in August of 2018 did not show any evidence of inflammatory bowel disease. RECOMMENDATIONS: 1. Patient was started on empiric antibiotics for possible colitis and is doing well. 2. Advance diet as tolerated. 3. Continue Protonix 40 mg daily. 4. Since the patient's symptoms are significantly improved, no plans on any endoscopic intervention at the present time. Will follow with you closely. Thank you for this consultation. MMODL / IJN: [id number] /
[2019-12-03 06:54] LABS: Basophils % (A) 1 %; Eosinophils % (A) 0 %; HCT 36.2 % (39.0-53.0); HGB 11.3 gm/dL (13.0-17.5); Hypochromasia Slight; Lymphocytes # (A) 1.2 k/uL (1.0-4.8); Lymphocytes % (A) 21 %; MCH 27.3 pg (25.0-35.0); MCHC 31.1 g/dL (31.0-37.0); MCV 87.9 fL (80.0-100.0); Mean Platelet Volume 10.3; Monocytes # (A) 0.5 k/uL (0-1.0); Monocytes % (A) 8 %; Neutrophils # (A) 3.7 k/uL (1.3-7.7); Neutrophils % (A) 68 %; Platelet Count 248 k/uL (150-450); RDW 14.1 % (11.5-15.5); WBC 5.4 k/uL (3.8-10.6)
[2019-12-03 06:55] LABS: RBC 4.12 m/uL (4.30-5.90)
[2019-12-03 07:12] LABS: ALT 9 U/L (4-49); AST 35 U/L (17-59); African American GFR (CKD) >90 (>60 ml/min/1.73 sqM); Albumin 1.9 g/dL (3.5-5.0); Alkaline Phosphatase 153 U/L (38-126); Anion Gap 7 mmol/L; Blood Urea Nitrogen <2 mg/dL (9-20); Calcium 7.7 mg/dL (8.4-10.2); Carbon Dioxide 25 mmol/L (22-30); Chloride 109 mmol/L (98-107); Glucose 84 mg/dL (74-99); Magnesium 1.7 mg/dL (1.6-2.3); Non-African American GFR(CKD) >90 (>60 ml/min/1.73 sqM); Potassium 3.4 mmol/L (3.5-5.1); Sodium 141 mmol/L (137-145); Total Bilirubin 0.6 mg/dL (0.2-1.3); Total Protein 6.4 g/dL (6.3-8.2)
[2019-12-03] MEDS: PANTOPRAZOLE 40 MG/10 ML VIAL IVP SCH (07:59)
[2019-12-03] MEDS: HEPARIN SODIUM,PORCINE 5,000 UNIT/ML 1 ML VIAL SQ SCH ×2 (07:59→21:14)
[2019-12-03 11:16] LABS: Free Kappa Lt Chain Qnt, Serum 6.17 mg/dL (0.33-1.94)
[2019-12-03] MEDS ORDERED: Potassium Replacement Protocol 1 EACH MISC MISCELLANE PRN (14:18)
[2019-12-03] MEDS: POTASSIUM CHLORIDE ER 20 MEQ TAB.ER PO SCH ×2 (14:49→15:49)
--- NOTE | 2019-12-03 16:16 | P.PN ---
Subjective Progress Note Date: 12/03/19 Principal diagnosis: Abdominal pain/colitis Anemia 69 year old male patient who presented to [facility] Emergency with complaints of abdominal pain. He has a known history of anemia, last scope abnormal per patient 1-2 years ago. He states he has been having increased fatigue, unex plained weight loss of approximately 35lbs in past year, and now with this persistent abdominal pain that has been worsening over the past few weeks. He does follow with GI as outpatient. CT abdomen and pelvis were reviewed, ?colitis He admits to history of alcohol and drug abuse, which he has sustained from for almost a year. He has dizzyness and unsteady gait at times. Positive black stools - diarrhea 3-4x a day. He also has occasional nausea and episodes of vomiting. There is mention of cold agglutinin although this is not present in any of his history and patient does not recall this. Apparently there was concern by the coagulation of his blood after being draw. Hematology has been consulted to further evaluate for this and his history of anemia. 12/03/2019 Patient is seen and evaluated in room at bedside; patient has had a drop in hemoglobin from 12 yesterday down to 11; no signs of overt bleeding; patient remains on Protonix for GI recommendations; hematology is following for hemolysis workup for possible cold agglutinin; potassium level of 3.4; patient does have electrolyte protocol in place Objective - Vital Signs Vital signs: Vital Signs Temp 97.8 F 12/03/19 08:07 Pulse 81 12/03/19 08:07 Resp 16 12/03/19 08:07 BP 110/65 12/03/19 08:07 Pulse Ox 99 12/03/19 08:07 Intake & Output 12/02/19 12/03/19 12/03/19 18:59 06:59 18:59 Intake Total 540 500 Balance 540 500 Intake: Intake, IV Titration 500 Amount Sodium Chloride 0.9% 1, 500 000 ml @ 75 mls/hr IV . [id number] [facility] Rx#:[id number] Oral 340 Other 200 Other: # Voids 1 1 1 # Bowel Movements 1 1 - Exam - Constitutional General appearance: Present: average body habitus, cooperative, no acute d istress - EENT Eyes: Present: anicteric sclerae, EOMI, PERRLA, normal appearance ENT: Present: hearing grossly normal, normal oropharynx Ears: bilateral: normal - Neck Neck: Present: normal ROM. Absent: lymphadenopathy, rigidity, thyromegaly Carotids: negative: bruit present Thyroid: bilateral: normal size, negative: enlarged, nodule - Respiratory Respiratory: bilateral: CTA, negative: rales, rhonchi, wheezing - Cardiovascular Rhythm: regular Heart sounds: normal: S1, S2 Abnormal Heart Sounds: Absent: systolic murmur, diastolic murmur - Gastrointestinal General gastrointestinal: Present: normal bowel sounds, soft. Absent: distended, organomegaly, tenderness - Genitourinary Genitourinary Comment(s): deferred - Integumentary Integumentary: Present: normal turgor. Absent: jaundiced, rash, ulcer - Neurologic Neurologic: Present: CNII-XII intact. Absent: focal deficits - Musculoskeletal Musculoskeletal: Present: gait normal, strength equal bilaterally - Psychiatric Psychiatric: Present: A&O x's 3, appropriate affect, intact judgment & insight - Labs CBC & Chem 7: 12/03/19 06:01 12/03/19 06:01 Labs: Abnormal Lab Results - Last 24 Hours (Table) 12/02/19 12/02/19 12/03/19 Range/Units 05:47 05:47 06:01 RBC 4.12 L (4.30-5.90) m/uL Hgb 12.2 L 11.3 L (13.0-17.5) gm/dL Hct 36.2 L (39.0-53.0) % MCHC 30.6 L (31.0-37.0) g/dL Potassium (3.5-5.1) mmol/L Chloride (98-107) mmol/L BUN (9-20) mg/dL Calcium (8.4-10.2) mg/dL Alkaline Phosphatase (38-126) U/L Lactate Dehydrogenase 273 L (313-618) U/L Albumin (3.5-5.0) g/dL 12/03/19 Range/Units 06:01 RBC (4.30-5.90) m/uL Hgb (13.0-17.5) gm/dL Hct (39.0-53.0) % MCHC (31.0-37.0) g/dL Potassium 3.4 L (3.5-5.1) mmol/L Chloride 109 H (98-107) mmol/L BUN <2 L (9-20) mg/dL Calcium 7.7 L (8.4-10.2) mg/dL Alkaline Phosphatase 153 H (38-126) U/L Lactate Dehydrogenase (313-618) U/L Albumin 1.9 L (3.5-5.0) g/dL Assessment and Plan Assessment: 1. Abdominal pain/colitis; continue with empiric IV antibiotics for possible colitis; GI on board and is agreeable; recommending to advance patient diet as tolerated; patient will continue on Protonix 40 mg daily; no plan for endoscopy at this time 2. Anemia; workup in progress for possible hemolysis; hemoglobin at 11 this morning; hematology on board; we will continue to monitor H&H closely 3. Transaminitis; possibly secondary to chronic liver disease 4. Possible liver cirrhosis/ EtOH induced 5. Chronic diastolic CHF; at baseline
--- NOTE | 2019-12-03 17:41 | CONS ---
CONSULTATION DATE OF SERVICE: December 03, 2019 Patient is a 69-year-old pleasant white male admitted to the hospital with abdominal pain associated with nausea, vomiting for the last 3-4 days duration. He is feeling much better today. Abdominal symptoms have improved. On a clear liquid diet, tolerating well. He denies any rectal bleeding or melena. PHYSICAL EXAMINATION: Appears comfortable in no apparent distress. Vital signs stable. Blood pressure is 94/50, pulse rate is 74, temperature 97.9. HEENT examination unremarkable. Conjunctivae pink. Sclerae anicteric. Oral cavity no lesions. NECK: No JVD or lymph node enlargement. CHEST was clear to auscultation. HEART: Regular rate and rhythm. ABDOMEN: Soft, it was nontender, nondistended. Bowel sounds are positive. No organomegaly. EXTREMITIES: No pedal edema. SKIN: No rashes. NEUROLOGIC: Alert and oriented x3. No focal deficits. LABS: Done from today WBC is 5.4, hemoglobin 11.3, platelets normal, MCV is normal. AST, ALT, T-bilirubin normal. Alkaline phosphatase is mildly elevated 153. Hepatitis serologies for A, B and C negative. IMPRESSION: 1. Nausea, vomiting and abdominal pain, resolved. 2. Mild elevation of alkaline phosphatase. 3. Mild normocytic anemia. EGD and colonoscopy February of 2019 showed mild gastritis and diverticulosis as well as a small rectal polyp. RECOMMENDATIONS: 1. Continue with symptomatic and supportive care. 2. No need for any endoscopic intervention at the present time. 3. Continue Protonix daily. 4. Advance diet as tolerated. 5. We will follow with you closely. Thank you for this consultation. MMODL / SHARITAN: [id number] /
[2019-12-03] MEDS: LEVOFLOXACIN 500MG-D5W PMX 500 MG in DEXTROSE/WATER 1 100ML.BAG IVPB SCH (21:14)
[2019-12-04 07:23] LABS: ALT 8 U/L (4-49); AST 45 U/L (17-59); African American GFR (CKD) >90 (>60 ml/min/1.73 sqM); Albumin 1.9 g/dL (3.5-5.0); Alkaline Phosphatase 161 U/L (38-126); Anion Gap 4 mmol/L; Blood Urea Nitrogen <2 mg/dL (9-20); Calcium 7.7 mg/dL (8.4-10.2); Carbon Dioxide 24 mmol/L (22-30); Chloride 110 mmol/L (98-107); Glucose 88 mg/dL (74-99); Non-African American GFR(CKD) >90 (>60 ml/min/1.73 sqM); Potassium 3.4 mmol/L (3.5-5.1); Sodium 138 mmol/L (137-145); Total Bilirubin 0.6 mg/dL (0.2-1.3); Total Protein 6.3 g/dL (6.3-8.2)
[2019-12-04] MEDS: PANTOPRAZOLE 40 MG/10 ML VIAL IVP SCH (07:52)
[2019-12-04] MEDS: HEPARIN SODIUM,PORCINE 5,000 UNIT/ML 1 ML VIAL SQ SCH ×2 (07:52→20:50)
[2019-12-04 08:01] LABS: Basophils % (A) 1 %; Eosinophils % (A) 0 %; HCT 36.8 % (39.0-53.0); HGB 10.9 gm/dL (13.0-17.5); Lymphocytes # (A) 0.8 k/uL (1.0-4.8); Lymphocytes % (A) 26 %; MCH 25.8 pg (25.0-35.0); MCHC 29.7 g/dL (31.0-37.0); Monocytes # (A) 0.3 k/uL (0-1.0); Monocytes % (A) 11 %; Neutrophils # (A) 1.8 k/uL (1.3-7.7); Neutrophils % (A) 60 %; Platelet Count 224 k/uL (150-450); RBC 4.23 m/uL (4.30-5.90); RDW 14.4 % (11.5-15.5); WBC 3.1 k/uL (3.8-10.6)
[2019-12-04] MEDS ORDERED: Potassium Replacement Protocol 1 EACH MISC MISCELLANE PRN (08:22)
[2019-12-04] MEDS: POTASSIUM CHLORIDE ER 20 MEQ TAB.ER PO SCH ×2 (09:09→10:22)
[2019-12-04 11:13] LABS: Poikilocytosis (M) Present
--- NOTE | 2019-12-04 15:21 | P.PN ---
Subjective Progress Note Date: 12/04/19 Principal diagnosis: Abdominal pain/colitis Anemia 69 year old male patient who presented to [facility] Emergency with complaints of abdominal pain. He has a known history of anemia, last scope abnormal per patient 1-2 years ago. He states he has been having increased fatigue, unex plained weight loss of approximately 35lbs in past year, and now with this persistent abdominal pain that has been worsening over the past few weeks. He does follow with GI as outpatient. CT abdomen and pelvis were reviewed, ?colitis He admits to history of alcohol and drug abuse, which he has sustained from for almost a year. He has dizzyness and unsteady gait at times. Positive black stools - diarrhea 3-4x a day. He also has occasional nausea and episodes of vomiting. There is mention of cold agglutinin although this is not present in any of his history and patient does not recall this. Apparently there was concern by the coagulation of his blood after being draw. Hematology has been consulted to further evaluate for this and his history of anemia. 12/03/2019 Patient is seen and evaluated in room at bedside; patient has had a drop in hemoglobin from 12 yesterday down to 11; no signs of overt bleeding; patient remains on Protonix for GI recommendations; hematology is following for hemolysis workup for possible cold agglutinin; potassium level of 3.4; patient does have electrolyte protocol in place 12/04/2019 Patient is seen and evaluated resting comfortably in bed; reports that he was hoping to be discharged today; we did discuss further decline in hemoglobin and possible reevaluation by hematology and follow-up on test results prior to discharge and patient is agreeable; patient has been evaluated by GI and no endoscopic examination is recommended; we will continue to monitor H&H closely; await evaluation by hematology Objective - Vital Signs Vital signs: Vital Signs Temp 98.2 F 12/04/19 07:56 Pulse 71 12/04/19 08:17 Resp 16 12/04/19 08:17 BP 116/66 12/04/19 07:56 Pulse Ox 99 12/04/19 07:56 Intake & Output 12/03/19 12/04/19 12/04/19 18:59 06:59 18:59 Intake Total 300 Balance 300 Intake: Oral 300 Other: # Voids 1 1 1 # Bowel Movements 1 2 - Exam - Constitutional General appearance: Present: average body habitus, cooperative, no acute distress - EENT Eyes: Present: anicteric sclerae, EOMI, PERRLA, normal appearance ENT: Present: hearing grossly normal, normal oropharynx Ears: bilateral: normal - Neck Neck: Present: normal ROM. Absent: lymphadenopathy, rigidity, thyromegaly Carotids: negative: bruit present Thyroid: bilateral: normal size, negative: enlarged, nodule - Respiratory Respiratory: bilateral: CTA, negative: rales, rhonchi, wheezing - Cardiovascular Rhythm: regular Heart sounds: normal: S1, S2 Abnormal Heart Sounds: Absent: systolic murmur, diastolic murmur - Gastrointestinal General gastrointestinal: Present: normal bowel sounds, soft. Absent: distended, organomegaly, tenderness - Genitourinary Genitourinary Comment(s): deferred - Integumentary Integumentary: Present: normal turgor. Absent: jaundiced, rash, ulcer - Neurologic Neurologic: Present: CNII-XII intact. Absent: focal deficits - Musculoskeletal Musculoskeletal: Present: gait normal, strength equal bilaterally - Psychiatric Psychiatric: Present: A&O x's 3, appropriate affect, intact judgment & insight - Labs CBC & Chem 7: 12/04/19 06:58 12/04/19 06:58 Labs: Abnormal Lab Results - Last 24 Hours (Table) 12/04/19 12/04/19 Range/Units 06:58 06:58 WBC 3.1 L (3.8-10.6) k/uL RBC 4.23 L (4.30-5.90) m/uL Hgb 10.9 L (13.0-17.5) gm/dL Hct 36.8 L (39.0-53.0) % MCHC 29.7 L (31.0-37.0) g/dL Lymphocytes # 0.8 L (1.0-4.8) k/uL Potassium 3.4 L (3.5-5.1) mmol/L Chloride 110 H (98-107) mmol/L BUN <2 L (9-20) mg/dL Calcium 7.7 L (8.4-10.2) mg/dL Alkaline Phosphatase 161 H (38-126) U/L Albumin 1.9 L (3.5-5.0) g/dL Assessment and Plan Assessment: 1. Abdominal pain/colitis; continue with empiric IV antibiotics for possible colitis; GI on board and is agreeable; recommending to advance patient diet as tolerated; patient will continue on Protonix 40 mg daily; no plan for endoscopy at this time 2. Anemia; workup in progress for possible hemolysis; hemoglobin at 11 this morning; hematology on board; we will continue to monitor H&H closely 3. Transaminitis; possibly secondary to chronic liver disease 4. Possible liver cirrhosis/ EtOH induced 5. Chronic diastolic CHF; at baseline
--- NOTE | 2019-12-04 15:42 | PN ---
PROGRESS NOTE DATE OF SERVICE: 12/04/2019 The patient is a 69-year-old pleasant white male admitted to hospital with abdominal pain, nausea, vomiting, and fatigue. He is doing much better. He denies any new complaints today. He had 3 loose bowel movements early this morning but none since then. No rectal bleeding. PHYSICAL EXAMINATION: Appears comfortable, no apparent distress. Vital signs stable. Blood pressure is 112/42, pulse 72, temperature 97. HEENT examination unremarkable. Conjunctivae pink. Sclerae anicteric. Oral cavity no lesions. Neck no JVD, no lymph node enlargement. Chest was clear to auscultation. HEART: Regular rate and rhythm. ABDOMEN: Soft, bowel sounds are positive. No organomegaly. Extremities no pedal edema. Neuro, he is alert, oriented to name and place. LABS: Labs from today show hemoglobin 10.8, WBC 5.4, platelets normal. IMPRESSION: 1. Abdominal pain, mild diarrhea. The patient on empiric antibiotics for acute colitis, doing well. 2. Mild anemia. Hemoglobin stable. Last EGD and colonoscopy 2 years ago that was unremarkable. 3. Nausea and vomiting resolved. RECOMMENDATIONS: 1. Continue symptomatic and supportive care. 2. Will advance diet as tolerated. 3. Continue antibiotics. 4. No plans on any endoscopic intervention at the present time. 5. Thank you for this consultation. MMODL / IJN: [id number] /
[2019-12-04] MEDS ORDERED: LEVOFLOXACIN 500 MG TAB PO SCH (21:00)
[2019-12-05 03:55] VITALS: TEMP 98.3
[2019-12-05 06:06] LABS: HCT 37.3 % (39.0-53.0); HGB 11.2 gm/dL (13.0-17.5); Hypochromasia Slight; MCH 26.4 pg (25.0-35.0); MCHC 29.9 g/dL (31.0-37.0); MCV 88.1 fL (80.0-100.0); Platelet Count 165 k/uL (150-450); RDW 14.6 % (11.5-15.5); WBC 3.3 k/uL (3.8-10.6)
[2019-12-05 06:08] LABS: RBC 4.23 m/uL (4.30-5.90)
[2019-12-05 06:13] LABS: African American GFR (CKD) >90 (>60 ml/min/1.73 sqM); Anion Gap 4 mmol/L; Blood Urea Nitrogen <2 mg/dL (9-20); Calcium 7.9 mg/dL (8.4-10.2); Carbon Dioxide 24 mmol/L (22-30); Chloride 109 mmol/L (98-107); Glucose 77 mg/dL (74-99); Non-African American GFR(CKD) >90 (>60 ml/min/1.73 sqM); Sodium 137 mmol/L (137-145)
[2019-12-05 06:27] LABS: Band Neutrophils % 1 %; Eosinophils # (M) 0.07 k/uL (0-0.7); Lymphocytes # (M) 1.45 k/uL (1.0-4.8); Monocytes # (M) 0.43 k/uL (0-1.0); Neutrophils % (M) 40 %; Nucleated Red Blood Cells 0 /100 WBC (0-0); Total Cells Counted 100
[2019-12-05 06:28] LABS: Poikilocytosis (M) Present
[2019-12-05 07:52] VITALS: BP 92/58; PULSE 86; RESP 12
[2019-12-05] MEDS: HEPARIN SODIUM,PORCINE 5,000 UNIT/ML 1 ML VIAL SQ SCH (07:55)
[2019-12-05] MEDS: PANTOPRAZOLE 40 MG/10 ML VIAL IVP SCH (07:55)
--- NOTE | 2019-12-05 11:22 | P.PN ---
Subjective Progress Note Date: 12/05/19 Principal diagnosis: Nausea, vomiting, diarrhea, abdominal pain In follow-up today patient states his admitting symptoms are all resolved. He denies any bleeding, fevers. Objective - Vital Signs Vital signs: Vital Signs Temp 98.3 F 12/05/19 07:52 Pulse 86 12/05/19 07:52 Resp 12 12/05/19 07:52 BP 92/58 12/05/19 07:52 Pulse Ox 99 12/05/19 07:52 Intake & Output 12/04/19 12/05/19 12/05/19 18:59 06:59 18:59 Intake Total 300 230 Balance 300 230 Intake: Oral 300 230 Other: # Voids 1 1 # Bowel Movements 1 - Constitutional General appearance: Present: average body habitus, cooperative, no acute distress - EENT Eyes: Present: anicteric sclerae, EOMI, poor dentition ENT: Present: hearing grossly normal - Respiratory Respiratory: bilateral: CTA - Cardiovascular Heart sounds: normal: S1, S2 - Peripheral edema leg Peripheral Edema: bilateral: None - Gastrointestinal General gastrointestinal: Present: normal bowel sounds, soft - Neurologic Neurologic: Present: CNII-XII intact - Musculoskeletal Musculoskeletal: Present: strength equal bilaterally - Psychiatric Psychiatric: Present: A&O x's 3, appropriate affect, intact judgment & insight - Labs CBC & Chem 7: 12/05/19 05:33 12/05/19 05:33 Labs: Abnormal Lab Results - Last 24 Hours (Table) 12/05/19 12/05/19 Range/Units 05:33 05:33 WBC 3.3 L (3.8-10.6) k/uL RBC 4.23 L (4.30-5.90) m/uL Hgb 11.2 L (13.0-17.5) gm/dL Hct 37.3 L (39.0-53.0) % MCHC 29.9 L (31.0-37.0) g/dL Chloride 109 H (98-107) mmol/L BUN <2 L (9-20) mg/dL Calcium 7.9 L (8.4-10.2) mg/dL Assessment and Plan Assessment: Workup for cold agglutinin disease. Still pending several results. Labs that have been resulted a few are suspicious but, awaiting complete results. CBC stable, slightly low WBC with normal differential. Mild anemia. Patient's presenting symptoms of nausea, vomiting, abdominal pain and diarrhea resolved. It is okay from a Hematology standpoint for patient to be discharged. If any portion of his workup is positive we will contact patient for follow-up with Hematology. If there is nothing positive in his workup will report to patient's PCP with Hematological follow-up if needed
--- NOTE | 2019-12-05 11:35 | P.DS ---
Providers Date of admission: 12/01/19 17:13 Expected date of discharge: 12/05/19 Attending physician: Kurt Subramanian Consults: 12/01/19 17:36 Consult Physician Stat Consulting Provider: Dannie Pruett Consult Reason/Comments: Abdominal pain, fatigue Do you want consulting provider notified?: Yes 12/01/19 20:51 Consult Physician Routine Consulting Provider: Aquiles Wells Consult Reason/Comments: cold agglutinins Do you want consulting provider notified?: Yes Primary care physician: Maria Luisa Quinn [facility] Course: 69 year old male patient who presented to [facility] Emergency with complaints of abdominal pain. He has a known history of anemia, last scope abnormal per patient 1-2 years ago. He states he has been having increased fatigue, unexplained weight loss of approximately 35lbs in past year, and now with this persistent abdominal pain that has been worsening over the past few weeks. He does follow with GI as outpatient. CT abdomen and pelvis were reviewed, ?colitis He admits to history of alcohol and drug abuse, which he has sustained from for almost a year. He has dizzyness and unsteady gait at times. Positive black stools - diarrhea 3-4x a day. He also has occasional nausea and episodes of vomiting. There is mention of cold agglutinin although this is not present in any of his history and patient does not recall this. Apparently there was concern by the coagulation of his blood after being draw. Hematology has been consulted to further evaluate for this and his history of anemia. 12/03/2019 Patient is seen and evaluated in room at bedside; patient has had a drop in hemoglobin from 12 yesterday down to 11; no signs of overt bleeding; patient remains on Protonix for GI recommendations; hematology is following for hemolysis workup for possible cold agglutinin; potassium level of 3.4; patient does have electrolyte protocol in place 12/04/2019 Patient is seen and evaluated resting comfortably in bed; reports that he was hoping to be discharged today; we did discuss further decline in hemoglobin and possible reevaluation by hematology and follow-up on test results prior to discharge and patient is agreeable; patient has been evaluated by GI and no endoscopic examination is recommended; we will continue to monitor H&H closely; await evaluation by hematology 12/05/2019; patient remains stable; hemoglobin is stable above 11; patient is evaluated by GI and hematology and is cleared for discharge; his workup is pending and hematology will consult him if any portion of his workup is positive otherwise patient will just follow-up with PCP as needed Patient Condition at Discharge: Good Plan - Discharge Summary Discharge Rx Participant: Yes New Discharge Prescriptions: New Levofloxacin [Levaquin] 500 mg PO Q24H #7 tab Continue Omeprazole 20 mg PO DAILY Discharge Medication List Omeprazole 20 mg PO DAILY 12/01/19 [History] Levofloxacin [Levaquin] 500 mg PO Q24H #7 tab 12/05/19 [Rx] Follow up Appointment(s)/Referral(s): Arpita Glass MD [Primary Care Provider] - 1-2 days Patient Instructions/Handouts: Abdominal Pain (ED) Activity/Diet/Wound Care/Special Instructions: He will be admitted. Discharge Disposition: HOME SELF-CARE
[2019-12-05 12:48] LABS: Albumin 1.91 g/dL (3.80-4.90); Gamma Globulin 3.42 g/dL (0.70-1.50)
== END 2019-12-05 12:17 | disposition home or self-care (01) ==
LOC: EC 10:49 → 1SOBS 17:13
PROVIDERS: ADMIT Hospitalist; ATTEND Hospitalist
DX: K52.9 Noninfective gastroenteritis and colitis, unspecified (principal); D64.9 Anemia, unspecified; R63.4 Abnormal weight loss; K21.9 Gastro-esophageal reflux disease without esophagitis; K44.9 Diaphragmatic hernia without obstruction or gangrene; E87.6 Hypokalemia; R42 Dizziness and giddiness; R05 Cough; R26.81 Unsteadiness on feet; F10.11 Alcohol abuse, in remission; F19.10 Other psychoactive substance abuse, uncomplicated; Z87.891 Personal history of nicotine dependence; Z83.3 Family history of diabetes mellitus; I50.32 Chronic diastolic (congestive) heart failure; Z03.818 Encounter for observation for suspected exposure to other biological agents ruled out; K70.9 Alcoholic liver disease, unspecified; Z87.11 Personal history of peptic ulcer disease; Z87.19 Personal history of other diseases of the digestive system; R74.0 Nonspecific elevation of levels of transaminase and lactic acid dehydrogenase [LDH]; Z79.899 Other long term (current) drug therapy
CPT/HCPCS: 96361 ×3; 96365; 96366 ×2; 96372 ×5; 96375 ×2; 96376 ×5; 99285; 36415; 93005; 80053 ×4; 80048; 80074; 82150; 83605; 83615; 83690; 83735; 85025 ×4; 85610; 85045; 86140; 86431; 82272; 81001; 86157; 84165; 83010; 86038; 86334; 83883; 71045; 74018; 74177; G0378 ×5; U0003; J2060; J1644 ×5; J1956 ×3; C9113 ×5; Q9967

== ENCOUNTER → 2020-01-13 | Outpatient (CLI) | payer MEDICARE ==
[2020-01-13 15:55] LABS: African American GFR (CKD) >90 (>60 ml/min/1.73 sqM); Blood Urea Nitrogen 11 mg/dL (9-20); Non-African American GFR(CKD) 89 (>60 ml/min/1.73 sqM)
--- NOTE | 2020-01-16 08:11 | CT ---
EXAMINATION TYPE: CT chest w con DATE OF EXAM: 01/13/2020 COMPARISON: Radiographs 12/02/2019 HISTORY: 69-year-old male R06.02, SOB TECHNIQUE: Contiguous axial scanning of the chest after the administration of 100 mL of Isovue 300. Coronal/sagittal reconstructions performed. CT DLP: 348mGycm. Automatic exposure control utilized for a dose reduction. FINDINGS: The heart is normal size with trace focal anterior pericardial fluid measuring 6 mm. Scattered LAD an d right coronary artery calcifications are present. Aorta normal caliber with conventional branching anatomy. Mild atherosclerotic arch calcifications. Scattered small mediastinal lymph nodes. No thoracic lymphadenopathy by CT size criteria. Mild biapical pleural-parenchymal scarring. Strandy atelectasis or scarring at the inferior lingula. 4 mm inferior lingular pulmonary nodule, axial image 47. 4 mm peripheral left lower lobe pulmonary nodule, axial images 41. No consolidation or pleural effusion. Tiny hiatal hernia. Marked fatty infiltration of the liver. Bones: Degenerative changes at the sternoclavicular joints. Bridging anterior endplate spondylosis co mpatible with DISH throughout most of the thoracic spine. IMPRESSION: 1. Scattered LAD and RCA coronary artery calcifications. 2. Mild biapical pleural-parenchymal scarring. A couple 4 mm pulmonary nodules on the left can be lise ssessed in 12 months. 3. Tiny hiatal hernia and marked fatty infiltration of the liver. 4. DISH.
== END | disposition home or self-care (01) ==
LOC: RADCTMAIN 15:15
PROVIDERS: ATTEND Internal Medicine Hematology & Oncology
DX: I25.10 Atherosclerotic heart disease of native coronary artery without angina pectoris (principal); J98.4 Other disorders of lung; R91.8 Other nonspecific abnormal finding of lung field; R06.02 Shortness of breath
CPT/HCPCS: 82565; 84520; 71260; 36415; Q9967

== ENCOUNTER 2020-02-09 12:13 | Day surgery (SDC) | payer MEDICARE ==
[~2020-02-09 12:13] MED LIST: ACETAMINOPHEN TAB 500 MG TAB PO ONE; HEPARIN SODIUM,PORCINE 5,000 UNIT/ML 1 ML VIAL SQ ONE; Pre Op ABX Message 1 EACH MISC MISCELLANE ONE
[2020-02-09 12:46] VITALS: RESP 16
--- NOTE | 2020-02-09 12:48 | P.GSHP ---
History of Present Illness H&P Date: 02/09/20 Chief Complaint: Monoclonal gammopathy 69-year-old male who is going to be starting chemotherapy in the near future for monoclonal gammopathy, Waldenstroms macroglobulinemia. Patient is not had a port previously. Timing for initiation of therapy within the next 1-2 weeks. Patient has had weight loss and diffuse pains. Past Medical History Past Medical History: No Reported History Additional Past Medical History / Comment(s): low iron, past ETOH abuse - has quit clotting disorder? History of Any Multi-Drug Resistant Organisms: None Reported Past Surgical History: No Surgical Hx Reported Past Anesthesia/Blood Transfusion Reactions: No Reported Reaction Past Psychological History: No Psychological Hx Reported Smoking Status: Former smoker Past Alcohol Use History: None Reported Past Drug Use History: None Reported - Past Family History Brother(s) Family Medical History: Diabetes Mellitus Medications and Allergies Home Medications Medication Instructions Recorded Confirmed Type Omeprazole 20 mg PO DAILY 12/01/19 12/01/19 History Levofloxacin [Levaquin] 500 mg PO Q24H #7 tab 12/05/19 Rx Allergies Allergy/AdvReac Type Severity Reaction Status Date / Time No Known Allergies Allergy Verified 12/01/19 12:54 Surgical - Exam Physical exam: General: Well-developed, well-nourished HEENT: Normocephalic, sclerae nonicteric Abdomen: Nontender, nondistended Extremities: No edema Neuro: Alert and oriented Assessment and Plan (1) Monoclonal gammopathies Narrative/Plan: Will proceed with Port-A-Cath placement at this time. Risks of bleeding, infection, DVT, pneumothorax, catheter malfunction, anesthesia related complications were discussed. The patient understands and wishes to proceed. Current Visit: Yes Status: Acute Code(s): D47.2 - MONOCLONAL GAMMOPATHY SNOMED Code(s): 363101553
[2020-02-09] MEDS ORDERED: ONDANSETRON 4 MG/2 ML VIAL IVP ONE (12:52)
[2020-02-09] MEDS ORDERED: HYDROmorphone 0.5 MG/0.5 ML SYRINGE IVP PRN (12:52)
[2020-02-09] MEDS ORDERED: LACTATED RINGERS 1,000 ML IV SCH (12:52)
[2020-02-09] MEDS ORDERED: DEXAMETHASONE SOD PHOSPHATE 10 MG/ML 1 ML VIAL IV ONE (12:52)
[2020-02-09] MEDS ORDERED: LIDOCAINE 1% (10MG/ML) FOR IV START INTRADERMA ONE (13:15)
[2020-02-09] MEDS ORDERED: PROPOFOL 10 MG/ML 20 ML VIAL IV ONE (14:31)
[2020-02-09] MEDS ORDERED: MIDAZOLAM 2 MG/2 ML VIAL ONE (14:31)
[2020-02-09] MEDS ORDERED: fentaNYL (PF) 50 MCG/ML 2 ML AMP ONE (14:31)
[2020-02-09] MEDS ORDERED: LIDOCAINE 1% INJ 10MG/ML (20 ML MDV) ONE (14:31)
[2020-02-09] MEDS ORDERED: ceFAZolin 1,000 MG VIAL IVPB ONE (14:45)
[2020-02-09] MEDS ORDERED: HEPARIN SODIUM,PORCINE 100 UNIT/ML 5 ML VIAL IV ONE ×2 (14:51)
[2020-02-09] MEDS ORDERED: LIDOCAINE (PF) 10 MG/ML 2 ML VIAL SQ ONE ×2 (14:52)
[2020-02-09] MEDS ORDERED: NALOXONE 0.4 MG/ML 1 ML VIAL IV PRN (15:28)
[2020-02-09] MEDS ORDERED: HYDROcodone/APAP 5-325MG 1 EACH TAB PO PRN (15:28)
--- NOTE | 2020-02-09 15:30 | P.OP ---
Date of Procedure: 02/09/20 Procedure(s) Performed: PREOPERATIVE DIAGNOSIS: Monoclonal gammopathy POSTOPERATIVE DIAGNOSIS: Same PROCEDURE: Port-A-Cath placement with fluoroscopic and ultrasound guidance SURGEON: Yuval EBL: Minimal ANESTHESIA: Sedation COMPLICATIONS: None OPERATIVE PROCEDURE: Patient was brought and placed on the operative table in the supine position. The patient was sedated per anesthesia that time. The chest and neck were prepped and draped in usual sterile fashion. The ultrasound probe was used to identify the location of the right internal jugular vein. The skin was localized with lidocaine. The Seldinger needle was advanced into the IJ under ultrasound guidance. The wire was advanced through the needle under fluoroscopic guidance into the superior vena cava. A port pocket was created in the right infraclavicular location. The catheter was tunneled from the wire entrance site to the port pocket. The port was then connected to the catheter. The dilator introducer was threaded over the guidewire. The guidewire and dilator were then removed. The catheter was advanced through the introducer and introducer was then removed. The tip was seen to be in the right atrial junction via fluoroscopy. A picture of the radiograph showing the tip at the radial digital junction was taken. Port was flushed with both saline and a Hep- Lock solution. There was good flow both in and out of the port. The port was sutured in underlying tissues using 3-0 silk sutures. The subcutaneous tissues were reapproximated using 3-0 Vicryl sutures and the skin at both locations using 4-0 Monocryl sutures. Skin glue and sterile dressings then applied. DISPOSITION: Stable to recovery room
--- NOTE | 2020-02-09 15:52 | FL ---
EXAMINATION TYPE: FL guided central line placemt HISTORY: Fluoroscopy time Impression: 1. Fluoroscopy support provided to the referring physician.
--- NOTE | 2020-02-09 15:55 | XR ---
EXAMINATION TYPE: XR chest 1V confirm line [facility] DATE OF EXAM: 02/09/2020 COMPARISON: 12/02/2019 HISTORY: Line placement TECHNIQUE: Single frontal view of the chest is obtained. FINDINGS: Arthropathy of the shoulders. Mediport is seen with the tip overlying the left SVC. No pne umothorax. Hyperinflation suggests COPD. No overt failure or pleural effusion. No consolidation. Hype rtrophic change of the spine. IMPRESSION: 1. Central line seen with the tip overlying the SVC. No pneumothorax.
[2020-02-09 15:59] VITALS: TEMP 98.2
[2020-02-09 16:53] VITALS: BP 119/78; PULSE 82
== END 2020-02-09 17:15 | disposition home or self-care (01) ==
LOC: OR 12:13
PROVIDERS: ATTEND Surgery
DX: D47.2 Monoclonal gammopathy (principal); C88.0 Waldenstrom macroglobulinemia; D64.89 Other specified anemias; Z79.899 Other long term (current) drug therapy; Z98.890 Other specified postprocedural states; Z86.19 Personal history of other infectious and parasitic diseases; Z87.891 Personal history of nicotine dependence; Z83.3 Family history of diabetes mellitus; K08.89 Other specified disorders of teeth and supporting structures; Z97.2 Presence of dental prosthetic device (complete) (partial)
CPT/HCPCS: 36561; 77001; C1788; J2250; J2001 ×2; J1644; J1642; J1100; J2405; J0690; J3010; J2704

== ENCOUNTER 2020-02-10 08:13 | Emergency (ER) | payer MEDICARE ==
[2020-02-10 08:19] VITALS: BP 125/68; PULSE 87; RESP 18; TEMP 97.5
--- NOTE | 2020-02-10 08:25 | ED ---
Recheck HPI - General Chief Complaint: Recheck/Abnormal Lab/Rx Stated Complaint: swelling port Time Seen by Provider: 02/10/20 08:20 Source: patient Mode of arrival: ambulatory Limitations: no limitations - History of Present Illness Initial Comments: 69-year-old male presenting 1 day status post placement of right-sided chest port. Patient states he had a port placed secondary to cancer he states it is for medications. Patient states he noticed a bump where the port was placed was not sure if this was normal he denies any increased pain and drainage or redness. Patient has no additional complaints he just wanted to make sure that this was normal postoperative changes - Related Data Home Medications Medication Instructions Recorded Confirmed Omeprazole 20 mg PO DAILY 12/01/19 02/09/20 Ferrous Sulfate [Iron] 325 mg PO DAILY 02/09/20 02/09/20 Previous Rx's Medication Instructions Recorded oxyCODONE HCL [OxyIR] 5 mg PO Q6H PRN 3 Days #6 tab 02/09/20 Allergies Allergy/AdvReac Type Severity Reaction Status Date / Time No Known Allergies Allergy Verified 02/10/20 08:16 Review of Systems ROS Statement: Those systems with pertinent positive or pertinent negative responses have been documented in the HPI. ROS Other: All systems not noted in ROS Statement are negative. Past Medical History Past Medical History: Cancer, GERD/Reflux Additional Past Medical History / Comment(s): low iron, past ETOH abuse - has quit clotting disorder? History of Any Multi-Drug Resistant Organisms: None Reported Past Surgical History: No Surgical Hx Reported Additional Past Surgical History / Comment(s): port placement, colonoscopy Past Anesthesia/Blood Transfusion Reactions: No Reported Reaction Past Psychological History: No Psychological Hx Reported Smoking Status: Former smoker Past Alcohol Use History: None Reported Past Drug Use History: None Reported - Past Family History Brother(s) Family Medical History: Diabetes Mellitus General Exam - General Exam Comments Initial Comments: General: The patient is awake and alert, in no distress Eye: Pupils are equal, round and reactive to light, extra-ocular movements are intact. No nystagmus. There is normal conjunctiva bilaterally. No signs of icterus. Musculoskeletal: Normal ROM, no tenderness. Strength 5/5. Sensation intact. Radial pulses equal bilaterally 2+. Neurological: A&O x 3. CN II-XII intact grossly, There are no obvious motor or sensory deficits. Coordination appears grossly intact. Speech is normal. Skin: Skin is warm and dry and no rashes. port placed right anterior chest wall, there is no redness, no acute swelling, no pain to palpation, old iodine on skin still Psychiatric: Cooperative, appropriate mood & affect, normal judgment. Limitations: no limitations Course Vital Signs 02/10/20 08:16 Temperature 97.5 F L Pulse Rate 87 Respiratory 18 Rate Blood Pressure 125/68 O2 Sat by Pulse 99 Oximetry Medical Decision Making - Medical Decision Making normal post operative port site no complication identified, no pain Patient case discussed with Dr. Ness who is agreeable to care plan and discharge. Disposition Clinical Impression: Normal exam, Postop check Disposition: HOME SELF-CARE Condition: Good Additional Instructions: Please use medication as discussed. Please follow-up with family doctor in the next 2 days. Please return to emergency room if the symptoms increase or worsen or for any other concerns. Is patient prescribed a controlled substance at d/c from ED?: No Referrals: Arpita Glass MD [Primary Care Provider] - 1-2 days Time of Disposition: 08:25
== END 2020-02-10 08:35 | disposition home or self-care (01) ==
LOC: EC 08:13
DX: Z45.2 Encounter for adjustment and management of vascular access device (principal); K21.9 Gastro-esophageal reflux disease without esophagitis; Z79.899 Other long term (current) drug therapy; Z87.891 Personal history of nicotine dependence
CPT/HCPCS: 99282

== ENCOUNTER → 2020-10-15 | Outpatient (CLI) | payer MEDICARE ==
--- NOTE | 2020-10-15 11:07 | US ---
EXAMINATION TYPE: US kidneys/renal and bladder DATE OF EXAM: 10/15/2020 COMPARISON: 01/11/2019 CLINICAL HISTORY: 70-year-old male C88.0 MACROGLOBULINEMIA OF WALDENSTROM. TECHNIQUE: Multiple sonographic images of the kidneys and bladder are obtained. FINDINGS: EXAM MEASUREMENTS: Right Kidney: 11.6 x 4.5 x 4.5 cm Left Kidney: 11.4 x 4.4 x 3.8 cm Right Kidney: no evidence of hydronephrosis Left Kidney: no evidence of hydronephrosis Bladder: No gross abnormality. Bilateral Jets seen: no Incidental echogenic appearance to the liver. IMPRESSION: 1. No hydronephrosis. 2. Incidental hepatic steatosis.
== END | disposition home or self-care (01) ==
LOC: RADUSWWP 09:16
PROVIDERS: ATTEND Internal Medicine Nephrology
DX: C88.0 Waldenstrom macroglobulinemia (principal); K76.0 Fatty (change of) liver, not elsewhere classified
CPT/HCPCS: 76770

== ENCOUNTER 2021-01-30 17:59 | Inpatient (IN) | payer MEDICARE ==
[2021-01-30] MEDS ORDERED: SODIUM CHLORIDE 0.9% 1,000 ML IV STA (18:21)
--- NOTE | 2021-01-30 18:24 | ED ---
General Adult HPI - General Chief complaint: Recheck/Abnormal Lab/Rx Stated complaint: abn labs Time Seen by Provider: 01/30/21 18:09 Source: patient, RN notes reviewed Mode of arrival: ambulatory Limitations: no limitations - History of Present Illness Initial comments: Patient is a pleasant [age]-year-old male presenting to the emergency department with concerns for hyperglycemia. Patient received a phone call that his blood sugar was 500. Patient had routine blood work done today. On further questioning patient admits to having some fatigue as well as polyuria and polydipsia. No abdominal pain. No vomiting. No chest pain. No history of diabetes although there is a family history. Patient does admit to drinking 2 of 2 L of pop or fruit punch daily. - Related Data Home Medications Medication Instructions Recorded Confirmed Omeprazole 20 mg PO DAILY 12/01/19 01/30/21 Ferrous Sulfate [Iron] 325 mg PO DAILY 02/09/20 01/30/21 Potassium Chloride [Klor-Con 20] 20 meq PO DAILY 09/04/20 01/30/21 Cholecalciferol [Vitamin D3 (25 25 mcg PO DAILY 12/25/20 01/30/21 Mcg = 1000 Iu)] Allergies Allergy/AdvReac Type Severity Reaction Status Date / Time No Known Allergies Allergy Verified 01/30/21 18:25 Review of Systems ROS Statement: Those systems with pertinent positive or pertinent negative responses have been documented in the HPI. ROS Other: All systems not noted in ROS Statement are negative. Constitutional: Denies: fever Eyes: Denies: eye pain ENT: Denies: ear pain Respiratory: Denies: cough Cardiovascular: Denies: chest pain Endocrine: Reports: fatigue, polydipsia, polyuria Gastrointestinal: Denies: abdominal pain Genitourinary: Denies: dysuria Musculoskeletal: Denies: back pain Skin: Denies: rash Neurological: Denies: weakness Past Medical History Past Medical History: Cancer, GERD/Reflux Additional Past Medical History / Comment(s): low iron, past ETOH abuse - has quit clotting disorder History of Any Multi-Drug Resistant Organisms: None Reported Past Surgical History: No Surgical Hx Reported Additional Past Surgical History / Comment(s): port placement, colonoscopy Past Anesthesia/Blood Transfusion Reactions: No Reported Reaction Past Psychological History: No Psychological Hx Reported Smoking Status: Former smoker Past Alcohol Use History: None Reported Past Drug Use History: None Reported - Past Family History Brother(s) Family Medical History: Diabetes Mellitus General Exam Limitations: no limitations General appearance: alert, in no apparent distress Head exam: Present: normocephalic Eye exam: Present: normal appearance Neck exam: Present: normal inspection Respiratory exam: Present: normal lung sounds bilaterally Cardiovascular Exam: Present: regular rate, normal rhythm GI/Abdominal exam: Present: soft. Absent: tenderness Extremities exam: Present: normal inspection, full ROM. Absent: tenderness Neurological exam: Present: alert. Absent: motor sensory deficit Psychiatric exam: Present: normal affect, normal mood Skin exam: Present: normal color Course Vital Signs 01/30/21 18:01 Temperature 98.1 F Pulse Rate 121 H Respiratory 18 Rate Blood Pressure 137/75 O2 Sat by Pulse 97 Oximetry EKG Findings - EKG Comments: EKG Findings:: Normal sinus rhythm with a rate of 100. ME 152. QRS 78. QT 362 . QTC 466. Normal axis. Normal QRS. No acute ST change. Medical Decision Making - Medical Decision Making Patient reevaluated. Patient and family updated. Case was discussed in detail with Dr. Ruiz, who will admit covering Dr. Wellington. He is in agreement with placing a dose of IV insulin followed by sliding scale would be ideal. - Lab Data Result diagrams: 01/30/21 18:30 01/30/21 18:30 Lab Results 01/30/21 01/30/21 01/30/21 Range/Units 18:30 18:30 18:30 WBC 2.5 L (3.8-10.6) k/uL RBC 4.58 (4.30-5.90) m/uL Hgb 15.1 (13.0-17.5) gm/dL Hct 45.7 (39.0-53.0) % MCV 99.9 (80.0-100.0) fL MCH 33.1 (25.0-35.0) pg MCHC 33.1 (31.0-37.0) g/dL RDW 14.7 (11.5-15.5) % Plt Count 230 (150-450) k/uL MPV 9.0 Neutrophils % (Manual) 76 % Lymphocytes % (Manual) 12 % Monocytes % (Manual) 11 % Eosinophils % (Manual) 1 % Neutrophils # (Manual) 1.90 (1.3-7.7) k/uL Lymphocytes # (Manual) 0.30 L (1.0-4.8) k/uL Monocytes # (Manual) 0.28 (0-1.0) k/uL Eosinophils # (Manual) 0.03 (0-0.7) k/uL Nucleated RBCs 0 (0-0) /100 WBC Manual Slide Review Performed Macrocytosis Slight PT 10.1 (9.0-12.0) sec INR 0.9 (<1.2) APTT 21.1 L (22.0-30.0) sec Sodium 129 L (137-145) mmol/L Potassium 3.8 (3.5-5.1) mmol/L Chloride 95 L (98-107) mmol/L Carbon Dioxide 22 (22-30) mmol/L Anion Gap 12 mmol/L BUN 5 L (9-20) mg/dL Creatinine 0.46 L (0.66-1.25) mg/dL Est GFR (CKD-EPI)AfAm >90 (>60 ml/min/1.73 sqM) Est GFR (CKD-EPI)NonAf >90 (>60 ml/min/1.73 sqM) Glucose 616 H* (74-99) mg/dL Calcium 9.4 (8.4-10.2) mg/dL Magnesium 2.0 (1.6-2.3) mg/dL Total Bilirubin 0.5 (0.2-1.3) mg/dL AST 35 (17-59) U/L ALT 21 (4-49) U/L Alkaline Phosphatase 197 H (38-126) U/L Troponin I (0.000-0.034) ng/mL Total Protein 6.7 (6.3-8.2) g/dL Albumin 4.0 (3.5-5.0) g/dL Acetone, Qual Negative (Negative) 01/30/21 Range/Units 18:30 WBC (3.8-10.6) k/uL RBC (4.30-5.90) m/uL Hgb (13.0-17.5) gm/dL Hct (39.0-53.0) % MCV (80.0-100.0) fL MCH (25.0-35.0) pg MCHC (31.0-37.0) g/dL RDW (11.5-15.5) % Plt Count (150-450) k/uL MPV Neutrophils % (Manual) % Lymphocytes % (Manual) % Monocytes % (Manual) % Eosinophils % (Manual) % Neutrophils # (Manual) (1.3-7.7) k/uL Lymphocytes # (Manual) (1.0-4.8) k/uL Monocytes # (Manual) (0-1.0) k/uL Eosinophils # (Manual) (0-0.7) k/uL Nucleated RBCs (0-0) /100 WBC Manual Slide Review Macrocytosis PT (9.0-12.0) sec INR (<1.2) APTT (22.0-30.0) sec Sodium (137-145) mmol/L Potassium (3.5-5.1) mmol/L Chloride (98-107) mmol/L Carbon Dioxide (22-30) mmol/L Anion Gap mmol/L BUN (9-20) mg/dL Creatinine (0.66-1.25) mg/dL Est GFR (CKD-EPI)AfAm (>60 ml/min/1.73 sqM) Est GFR (CKD-EPI)NonAf (>60 ml/min/1.73 sqM) Glucose (74-99) mg/dL Calcium (8.4-10.2) mg/dL Magnesium (1.6-2.3) mg/dL Total Bilirubin (0.2-1.3) mg/dL AST (17-59) U/L ALT (4-49) U/L Alkaline Phosphatase (38-126) U/L Troponin I <0.012 (0.000-0.034) ng/mL Total Protein (6.3-8.2) g/dL Albumin (3.5-5.0) g/dL Acetone, Qual (Negative) Disposition Clinical Impression: Hyperglycemia, New onset type 2 diabetes mellitus Disposition: ADMITTED IP TO THIS HOSP Is patient prescribed a controlled substance at d/c from ED?: No Referrals: Arpita Glass MD [Primary Care Provider] - 1-2 days Decision Time: 20:03
[2021-01-30 18:53] LABS: AST 35 U/L (17-59); African American GFR (CKD) >90 (>60 ml/min/1.73 sqM); Alkaline Phosphatase 197 U/L (38-126); Anion Gap 12 mmol/L; Blood Urea Nitrogen 5 mg/dL (9-20); Calcium 9.4 mg/dL (8.4-10.2); Carbon Dioxide 22 mmol/L (22-30); Chloride 95 mmol/L (98-107); Non-African American GFR(CKD) >90 (>60 ml/min/1.73 sqM); Potassium 3.8 mmol/L (3.5-5.1); Sodium 129 mmol/L (137-145); Total Bilirubin 0.5 mg/dL (0.2-1.3); Total Protein 6.7 g/dL (6.3-8.2)
[2021-01-30 19:01] LABS: ALT 21 U/L (4-49)
[2021-01-30 19:03] LABS: Glucose 616 mg/dL (74-99)
[2021-01-30 19:04] LABS: HCT 45.7 % (39.0-53.0); HGB 15.1 gm/dL (13.0-17.5); INR 0.9 (<1.2); MCH 33.1 pg (25.0-35.0); MCHC 33.1 g/dL (31.0-37.0); MCV 99.9 fL (80.0-100.0); Macrocytosis Slight; Partial Thromboplastin Time 21.1 sec (22.0-30.0); Platelet Count 230 k/uL (150-450); Prothrombin Time 10.1 sec (9.0-12.0); RBC 4.58 m/uL (4.30-5.90); RDW 14.7 % (11.5-15.5); WBC 2.5 k/uL (3.8-10.6)
--- NOTE | 2021-01-30 19:07 | XR ---
EXAMINATION TYPE: XR chest 2V DATE OF EXAM: 01/30/2021 COMPARISON: Chest radiograph February 09, 2020 HISTORY: Weakness TECHNIQUE: Frontal and lateral views of the chest are obtained. FINDINGS: There is no focal air space opacity, pleural effusion, or pneumothorax seen. The cardiac silhouette size is within normal limits. Diffuse radiographic skeletal hyperostosis. The osseous str uctures are intact. Right chest wall medical infusion port with catheter tip over the SVC. IMPRESSION: No acute cardiopulmonary process.
[2021-01-30 19:18] LABS: Eosinophils # (M) 0.03 k/uL (0-0.7); Monocytes # (M) 0.28 k/uL (0-1.0); Neutrophils % (M) 76 %; Nucleated Red Blood Cells 0 /100 WBC (0-0); Total Cells Counted 100
[2021-01-30] MEDS ORDERED: INSULIN REGULAR 100 UNIT/ML VIAL (IV) IV ONE (20:03)
[2021-01-30] MEDS ORDERED: NALOXONE 0.4 MG/ML 1 ML VIAL IV PRN (20:04)
[2021-01-30] MEDS: SODIUM CHLORIDE 0.9% 1,000 ML IV SCH ×2 (20:14→22:37)
[2021-01-30 20:37] LABS: Glucose,Whole Blood 424 mg/dL (75-99)
[2021-01-30 21:00] LABS: Appearance,Urine Clear (Clear); Bilirubin,Urine Negative (Negative); Blood,Urine Negative (Negative); Color,Urine Colorless; Glucose,Urine (UA) 4+ (Negative); Ketones,Urine Negative (Negative); Leukocyte Esterase,Urine Small (Negative); Nitrite,Urine Negative (Negative); Protein,Urine Negative (Negative); RBC,Urine 7 /hpf (0-5); Specific Gravity,Urine 1.032 (1.001-1.035); Urobilinogen,Urine <2.0 mg/dL (<2.0); WBC,Urine 26 /hpf (0-5)
[2021-01-30 22:22] LABS: Glucose,Whole Blood 321 mg/dL (75-99)
[2021-01-30] MEDS: INSULIN ASPART (NovoLOG) 100 UNIT/ML VIAL SQ SCH (22:36)
[2021-01-31 07:00] LABS: African American GFR (CKD) >90 (>60 ml/min/1.73 sqM); Anion Gap 9 mmol/L; Blood Urea Nitrogen 5 mg/dL (9-20); Calcium 9.3 mg/dL (8.4-10.2); Carbon Dioxide 26 mmol/L (22-30); Chloride 100 mmol/L (98-107); Glucose 275 mg/dL (74-99); Non-African American GFR(CKD) >90 (>60 ml/min/1.73 sqM); Potassium 3.5 mmol/L (3.5-5.1); Sodium 135 mmol/L (137-145)
[2021-01-31 07:13] LABS: Basophils % (A) 1 %; Eosinophils # (A) 0.1 k/uL (0-0.7); Eosinophils % (A) 2 %; HGB 13.6 gm/dL (13.0-17.5); Lymphocytes # (A) 0.2 k/uL (1.0-4.8); Lymphocytes % (A) 9 %; MCH 34.1 pg (25.0-35.0); MCHC 34.9 g/dL (31.0-37.0); MCV 97.7 fL (80.0-100.0); Mean Platelet Volume 8.7; Monocytes # (A) 0.4 k/uL (0-1.0); Monocytes % (A) 14 %; Neutrophils % (A) 71 %; Platelet Count 251 k/uL (150-450); RBC 3.99 m/uL (4.30-5.90); RDW 14.9 % (11.5-15.5); WBC 2.8 k/uL (3.8-10.6)
[2021-01-31 07:32] LABS: Glucose,Whole Blood 264 mg/dL (75-99)
[2021-01-31] MEDS: INSULIN ASPART (NovoLOG) 100 UNIT/ML VIAL SQ SCH ×2 (08:09→13:28)
[2021-01-31 08:24] LABS: Stomatocytes Present
[2021-01-31] MEDS ORDERED: metFORMIN 500 MG TAB PO SCH (10:45)
[2021-01-31 11:25] VITALS: BP 128/72; PULSE 90; RESP 18; TEMP 98.5
--- NOTE | 2021-01-31 11:37 | P.DS ---
Providers Date of admission: 01/30/21 20:04 Attending physician: Desmond Ruiz Primary care physician: Maria Luisa [facility] Course: Is refer to [facility] for further details Plan - Discharge Summary New Discharge Prescriptions: New metFORMIN HCL [Glucophage] 500 mg PO BID-W/MEALS #60 tab glipiZIDE [Glucotrol] 5 mg PO BID #30 tab Continue Omeprazole 20 mg PO DAILY Ferrous Sulfate [Iron] 325 mg PO DAILY Potassium Chloride [Klor-Con 20] 20 meq PO DAILY Cholecalciferol [Vitamin D3 (25 Mcg = 1000 Iu)] 25 mcg PO DAILY Discharge Medication List Omeprazole 20 mg PO DAILY 12/01/19 [History] Ferrous Sulfate [Iron] 325 mg PO DAILY 02/09/20 [History] Potassium Chloride [Klor-Con 20] 20 meq PO DAILY 09/04/20 [History] Cholecalciferol [Vitamin D3 (25 Mcg = 1000 Iu)] 25 mcg PO DAILY 12/25/20 [History] glipiZIDE [Glucotrol] 5 mg PO BID #30 tab 01/31/21 [Rx] metFORMIN HCL [Glucophage] 500 mg PO BID-W/MEALS #60 tab 01/31/21 [Rx] Follow up Appointment(s)/Referral(s): Arpita Glass MD [Primary Care Provider] - 3 Days Madi Merlos MD [REFERRING] - 1 Week (power is out.patient will have to call and schedule own appt) Activity/Diet/Wound Care/Special Instructions: Diabetic diet, BS monitring before breakfast and bed time Discharge Disposition: HOME SELF-CARE
--- NOTE | 2021-01-31 11:37 | P.HPIM ---
History of Present Illness Patient is an 70-year-old male was sent in because of hyperglycemia. Patient did admit to polyuria and polydipsia. Patient is found to have blood sugars of 600 with anion gap of around 12 patient doesn't have any significant ketoa cidosis. Patient quit drinking a while ago and since then patient started substituting alcohol with the juices which are sugary. Patient to sugars have gone down patient used total of 9 units of insulin since last night patient was on sliding scale insulin I do not have any hemoglobin A1c available. senior health educator will educate the patient patient will need to check her blood sugars twice a day and patient will be started on metformin and glipizide at a lower dose doses of which may need to be increased. That medication education and diet education was provided and the patient will be discharged with follow up with the endocrinology and PCP as an outpatient. REVIEW OF SYSTEMS: CONSTITUTIONAL: No fever, no malaise, no fatigue. HEENT: No recent visual problems or hearing problems. Denied any sore throat. CARDIOVASCULAR: No chest pain, orthopnea, PND, no palpitations, no syncope. PULMONARY: No shortness of breath, no cough, no hemoptysis. GASTROINTESTINAL: No diarrhea, no nausea, no vomiting, no abdominal pain. NEUROLOGICAL: No headaches, no weakness, no numbness. HEMATOLOGICAL: Denies any bleeding or petechiae. GENITOURINARY: Denies any burning micturition, frequency, or urgency. MUSCULOSKELETAL/RHEUMATOLOGICAL: Denies any joint pain, swelling, or any muscle pain. ENDOCRINE: As mentioned in HPI The rest of the 14-point review of systems is negative. PHYSICAL EXAMINATION: GENERAL: The patient is alert and oriented x3, not in any acute distress. Well developed, well nourished. HEENT: Pupils are round and equally reacting to light. EOMI. No scleral icterus. No conjunctival pallor. Normocephalic, atraumatic. No pharyngeal erythema. No thyromegaly. CARDIOVASCULAR: S1 and S2 present. No murmurs, rubs, or gallops. PULMONARY: Chest is clear to auscultation, no wheezing or crackles. ABDOMEN: Soft, nontender, nondistended, normoactive bowel sounds. No palpable organomegaly. MUSCULOSKELETAL: No joint swelling or deformity. EXTREMITIES: No cyanosis, clubbing, or pedal edema. NEUROLOGICAL: Gross neurological examination did not reveal any focal deficits. SKIN: No rashes. Assessment and plan -Hypoglycemia: Patient is newly diagnosed diabetic further management as discussed in the HPI itself patient will be discharged today. He -Hyperosmolar hyponatremia and hypovolemic hyponatremia secondary to hyperglycemia next line-tachycardia secondary to dehydration patient received IV fluids -Gastric esophageal reflux disease Past Medical History Past Medical History: Cancer, GERD/Reflux Additional Past Medical History / Comment(s): low iron, past ETOH abuse - has quit clotting disorder History of Any Multi-Drug Resistant Organisms: None Reported Past Surgical History: No Surgical Hx Reported Additional Past Surgical History / Comment(s): port placement, colonoscopy Past Anesthesia/Blood Transfusion Reactions: No Reported Reaction Past Psychological History: No Psychological Hx Reported Smoking Status: Current every day smoker Past Alcohol Use History: None Reported Past Drug Use History: None Reported - Past Family History Brother(s) Family Medical History: Diabetes Mellitus Medications and Allergies Home Medications Medication Instructions Recorded Confirmed Type Omeprazole 20 mg PO DAILY 12/01/19 01/30/21 History Ferrous Sulfate [Iron] 325 mg PO DAILY 02/09/20 01/30/21 History Potassium Chloride [Klor-Con 20] 20 meq PO DAILY 09/04/20 01/30/21 History Cholecalciferol [Vitamin D3 (25 25 mcg PO DAILY 12/25/20 01/30/21 History Mcg = 1000 Iu)] glipiZIDE [Glucotrol] 5 mg PO BID #30 tab 01/31/21 Rx metFORMIN HCL [Glucophage] 500 mg PO BID-W/MEALS #60 tab 01/31/21 Rx Allergies Allergy/AdvReac Type Severity Reaction Status Date / Time No Known Allergies Allergy Verified 01/30/21 18:25 Physical Exam Vitals: Vital Signs Temp Pulse Pulse Resp BP BP Pulse Ox 01/31/21 11:21 98.5 F 90 18 128/72 95 01/31/21 05:05 98.1 F 74 20 139/80 97 01/30/21 22:10 98.6 F 84 20 146/81 97 01/30/21 20:30 97.9 F 96 18 125/76 98 01/30/21 18:01 98.1 F 121 H 18 137/75 97 Intake and Output 01/30/21 01/31/21 01/31/21 22:59 06:59 14:59 Intake Total 520 Balance 520 Intake: Intake, IV Titration 520 Amount Sodium Chloride 0.9% 1, 520 000 ml @ 130 mls/hr IV . [id number] STA Rx#:[id number] Other: # Voids 1 Weight 85.275 kg Results CBC & Chem 7: 01/31/21 05:52 01/31/21 05:52 Labs: Abnormal Lab Results - Last 24 Hours (Table) 01/30/21 01/30/21 01/30/21 Range/Units 18:30 18:30 18:30 WBC 2.5 L (3.8-10.6) k/uL RBC (4.30-5.90) m/uL Lymphocytes # (1.0-4.8) k/uL Lymphocytes # (Manual) 0.30 L (1.0-4.8) k/uL APTT 21.1 L (22.0-30.0) sec Sodium (137-145) mmol/L Chloride (98-107) mmol/L BUN (9-20) mg/dL Creatinine (0.66-1.25) mg/dL Glucose (74-99) mg/dL POC Glucose (mg/dL) (75-99) mg/dL Alkaline Phosphatase (38-126) U/L Urine Glucose (UA) 4+ H (Negative) Ur Leukocyte Esterase Small H (Negative) Urine RBC 7 H (0-5) /hpf Urine WBC 26 H (0-5) /hpf 01/30/21 01/30/21 01/30/21 Range/Units 18:30 20:33 22:15 WBC (3.8-10.6) k/uL RBC (4.30-5.90) m/uL Lymphocytes # (1.0-4.8) k/uL Lymphocytes # (Manual) (1.0-4.8) k/uL APTT (22.0-30.0) sec Sodium 129 L (137-145) mmol/L Chloride 95 L (98-107) mmol/L BUN 5 L (9-20) mg/dL Creatinine 0.46 L (0.66-1.25) mg/dL Glucose 616 H* (74-99) mg/dL POC Glucose (mg/dL) 424 H 321 H (75-99) mg/dL Alkaline Phosphatase 197 H (38-126) U/L Urine Glucose (UA) (Negative) Ur Leukocyte Esterase (Negative) Urine RBC (0-5) /hpf Urine WBC (0-5) /hpf 01/31/21 01/31/21 01/31/21 Range/Units 05:52 05:52 07:29 WBC 2.8 L (3.8-10.6) k/uL RBC 3.99 L (4.30-5.90) m/uL Lymphocytes # 0.2 L (1.0-4.8) k/uL Lymphocytes # (Manual) (1.0-4.8) k/uL APTT (22.0-30.0) sec Sodium 135 L (137-145) mmol/L Chloride (98-107) mmol/L BUN 5 L (9-20) mg/dL Creatinine 0.49 L (0.66-1.25) mg/dL Glucose 275 H (74-99) mg/dL POC Glucose (mg/dL) 264 H (75-99) mg/dL Alkaline Phosphatase (38-126) U/L Urine Glucose (UA) (Negative) Ur Leukocyte Esterase (Negative) Urine RBC (0-5) /hpf Urine WBC (0-5) /hpf Microbiology - Last 24 Hours (Table) 01/30/21 18:30 Urine Culture - Preliminary Urine,Clean Catch Thrombosis Risk Factor Assmnt - Choose All That Apply Each Factor Represents 1 point: Obesity (BMI >25) Each Risk Factor Represents 2 Points: Age 61-74 years, Malignancy Thrombosis Risk Factor Assessment Total Risk Factor Score: 5 Thrombosis Risk Factor Assessment Level: High Risk
[2021-01-31 11:45] LABS: Glucose,Whole Blood 259 mg/dL (75-99)
[2021-01-31 14:08] VITALS: BMI 26.2
== END 2021-01-31 13:30 | disposition home or self-care (01) | DRG 638 ==
LOC: EC 17:59 → INTOOBSV 20:04 → 6NMEDSUR 20:04 → 5NMEDONC 20:04 → UNDOADMOB 20:04 → OBSVTOIN 20:04 → 5NMEDONC 21:01 → UNDODISOB 01-31 13:30 → UNDODISIN 01-31 13:30
PROVIDERS: ADMIT Internal Medicine; ATTEND Internal Medicine
DX: E11.65 Type 2 diabetes mellitus with hyperglycemia (principal); E87.1 Hypo-osmolality and hyponatremia; E86.0 Dehydration; E86.1 Hypovolemia; F17.200 Nicotine dependence, unspecified, uncomplicated; K21.9 Gastro-esophageal reflux disease without esophagitis; Z20.822 Contact with and (suspected) exposure to COVID-19; Z79.84 Long term (current) use of oral hypoglycemic drugs; Z83.3 Family history of diabetes mellitus
CPT/HCPCS: 36415; 71046; 80048; 80053; 81001; 82009; 83036; 83735; 84484; 85025; 85610; 85730; 87086; 87635; 93005; 96360; 99285

== ENCOUNTER 2021-02-14 14:31 | Emergency (ER) | payer MEDICARE ==
[2021-02-14 14:38] VITALS: TEMP 98.3
[2021-02-14 15:58] LABS: Appearance,Urine Turbid (Clear); Bilirubin,Urine Negative (Negative); Blood,Urine Moderate (Negative); Color,Urine Yellow; Glucose,Urine (UA) Negative (Negative); Hyaline Casts,Urine 16 /lpf (0-2); Ketones,Urine 1+ (Negative); Leukocyte Esterase,Urine Large (Negative); Mucus,Urine Many /hpf; Nitrite,Urine Positive (Negative); PH, Urine 6.5 (5.0-8.0); Protein,Urine 1+ (Negative); RBC,Urine 94 /hpf (0-5); Urobilinogen,Urine <2.0 mg/dL (<2.0); WBC,Urine >182 /hpf (0-5)
--- NOTE | 2021-02-14 16:34 | US ---
EXAMINATION TYPE: US scrotum with doppler. Grayscale and color Doppler Duplex imaging performed of t he scrotum. DATE OF EXAM: 02/14/2021 COMPARISON: NONE CLINICAL HISTORY: r testicle swelling/pain. EXAM MEASUREMENTS: TESTICLES: Right Testicle: 2.9 x 2.5 x 2.0 cm Left Testicle: 3.6 x1.7 x 2.1 cm EPIDIDYMIS HEAD: Right Epididymis: 1.2 cm Left Epididymis: 0.7 cm Doppler performed to assess for testicular vascularity; good bilateral color flow and waveforms are s een. Presence of hydroceles: There is a nonsimple hydrocele measuring 2.5 x 1.5 x 2.2cm Presence of varicoceles: no Comparison view show increased blood flow to right testicle and epididymis and surrounding scrotal so ft tissue versus opposite left side. IMPRESSION: Above findings are consistent with right-sided acute epididymitis/orchitis with reactive hydrocele.
[2021-02-14 16:47] VITALS: BP 126/78; PULSE 78; RESP 18
[2021-02-14] MEDS ORDERED: LEVOFLOXACIN 500 MG TAB PO STA (16:54)
--- NOTE | 2021-02-14 16:58 | ED ---
Male Urogenital HPI - General Chief complaint: Urogenital Stated complaint: Swollen Testicle Time Seen by Provider: 02/14/21 15:03 Source: patient, RN notes reviewed Mode of arrival: ambulatory Limitations: no limitations - History of Present Illness Initial comments: Patient is a 70-year-old male presenting to the emergency Department with complaints of right-sided testicular pain and swelling over the past few days. He denies any injuries or trauma. Denies any fevers or chills. Denies any abdominal pain, nausea or vomiting, no diarrhea. He's never had this before. He denies being sexually active. Denies any dysuria, hematuria. He has no further complaints. - Related Data Home Medications Medication Instructions Recorded Confirmed Omeprazole 20 mg PO DAILY 12/01/19 01/30/21 Ferrous Sulfate [Iron] 325 mg PO DAILY 02/09/20 01/30/21 Potassium Chloride [Klor-Con 20] 20 meq PO DAILY 09/04/20 01/30/21 Cholecalciferol [Vitamin D3 (25 25 mcg PO DAILY 12/25/20 01/30/21 Mcg = 1000 Iu)] Previous Rx's Medication Instructions Recorded glipiZIDE [Glucotrol] 5 mg PO BID #30 tab 01/31/21 metFORMIN HCL [Glucophage] 500 mg PO BID-W/MEALS #60 tab 01/31/21 Levofloxacin [Levaquin] 500 mg PO DAILY 10 Days #10 tab 02/14/21 Allergies Allergy/AdvReac Type Severity Reaction Status Date / Time No Known Allergies Allergy Verified 02/14/21 14:38 Review of Systems ROS Statement: Those systems with pertinent positive or pertinent negative responses have been documented in the HPI. ROS Other: All systems not noted in ROS Statement are negative. Past Medical History Past Medical History: Cancer, GERD/Reflux Additional Past Medical History / Comment(s): low iron, past ETOH abuse - has quit clotting disorder History of Any Multi-Drug Resistant Organisms: None Reported Past Surgical History: No Surgical Hx Reported Additional Past Surgical History / Comment(s): port placement, colonoscopy Past Anesthesia/Blood Transfusion Reactions: No Reported Reaction Past Psychological History: No Psychological Hx Reported Smoking Status: Current every day smoker Past Alcohol Use History: None Reported Past Drug Use History: None Reported - Past Family History Brother(s) Family Medical History: Diabetes Mellitus General Exam - General Exam Comments Initial Comments: GENERAL: Patient is well-developed and well-nourished. Patient is nontoxic and in no acute distress. HEAD: Atraumatic, normocephalic. EYES: Pupils equal round and reactive to light, extraocular movements intact, sclera anicteric, conjunctiva are normal. Eyelids were unremarkable. ENT: Moist mucous membranes. NECK: Normal range of motion, supple without lymphadenopathy or JVD. LUNGS: Unlabored respirations. Breath sounds clear to auscultation bilaterally and equal. No wheezes rales or rhonchi. HEART: Regular rate and rhythm without murmurs, rubs or gallops. ABDOMEN: Soft, nontender, normoactive bowel sounds. No guarding, no rebound. No masses appreciated. MUSCULOSKELETAL: Normal extremities with adequate strength and normal range of motion, no pitting or edema. No clubbing or cyanosis. NEUROLOGICAL: Patient is alert and oriented x 3. SKIN: Warm, Dry, normal turgor, no rashes or lesions noted. Limitations: no limitations exam: Present: scrotal swelling (Right-sided testicular swelling, tenderness, no erythema.) Course Vital Signs 02/14/21 02/14/21 14:35 16:45 Temperature 98.3 F 98.3 F Pulse Rate 112 H 78 Respiratory 19 18 Rate Blood Pressure 126/76 126/78 O2 Sat by Pulse 96 99 Oximetry Medical Decision Making - Medical Decision Making Patient is a 70-year-old male here with right-sided testicular swelling and discomfort over the past few days. No dysuria, no abdominal pain, no nausea or vomiting, no fevers. His vitals are stable. Urine is positive nitrates, WBC clumps, urine culture is pending. Ultrasound shows findings consistent with right-sided acute epididymitis with reactive hydrocele. Patient denies being sexually active. Patient will be started on Levaquin, first dose given here today. Patient will continue this for 10 days. He'll follow up with his primary care. He is agreeable to this. Return parameters were discussed with him and he verbalized understanding. Case discussed with Dr. Bella. - Lab Data Lab Results 02/14/21 Range/Units 15:41 Urine Color Yellow Urine Appearance Turbid (Clear) Urine pH 6.5 (5.0-8.0) Ur Specific [place] 1.020 (1.001-1.035) Urine Protein 1+ H (Negative) Urine Glucose (UA) Negative (Negative) Urine Ketones 1+ H (Negative) Urine Blood Moderate H (Negative) Urine Nitrite Positive (Negative) Urine Bilirubin Negative (Negative) Urine Urobilinogen <2.0 (<2.0) mg/dL Ur Leukocyte Esterase Large H (Negative) Urine RBC 94 H (0-5) /hpf Urine WBC >182 H (0-5) /hpf Urine WBC Clumps Many H (None) /hpf Hyaline Casts 16 H (0-2) /lpf Urine Mucus Many H (None) /hpf Disposition Clinical Impression: UTI (urinary tract infection), Epididymitis Disposition: HOME SELF-CARE Condition: Stable Instructions (If sedation given, give patient instructions): Epididymitis (ED), Urinary Tract Infection in Men (ED) Additional Instructions: Please return to the Emergency Department if symptoms worsen or any other concerns. Take antibiotics as prescribed, finish entire course. Follow-up with your primary care doctor. Prescriptions: Levofloxacin [Levaquin] 500 mg PO DAILY 10 Days #10 tab Is patient prescribed a controlled substance at d/c from ED?: No Referrals: Arpita Glass MD [Primary Care Provider] - 1-2 days Time of Disposition: 16:58
== END 2021-02-14 17:20 | disposition home or self-care (01) ==
LOC: EC 14:31
DX: N39.0 Urinary tract infection, site not specified (principal); N45.1 Epididymitis; K21.9 Gastro-esophageal reflux disease without esophagitis; F17.200 Nicotine dependence, unspecified, uncomplicated; Z79.84 Long term (current) use of oral hypoglycemic drugs
CPT/HCPCS: 76870; 81001; 87086; 93975; 99284

== ENCOUNTER → 2021-08-06 | Outpatient (CLI) | payer MEDICARE ==
[~2021-08-06] MED LIST changes: +ACETAMINOPHEN TAB 325 MG TAB PO NR; -ACETAMINOPHEN TAB 500 MG TAB PO ONE; +FAMOTIDINE 20 MG/2 ML VIAL IV NR; -HEPARIN SODIUM,PORCINE 5,000 UNIT/ML 1 ML VIAL SQ ONE; -Pre Op ABX Message 1 EACH MISC MISCELLANE ONE; +RITUXIMAB PVVR IV NR; +SODIUM CHLORIDE 0.9% 500 ML 500 ML in EMPTY BAG 1 BAG IV PRN; +SODIUM CHLORIDE 0.9% IV NR; +TIXAGEVIMAB/CILGAVIMAB (EUA) 300 MG/3 ML COMBO.PKG IM NR; +diphenhydrAMINE 50 MG/ML 1 ML VIAL IVP NR; +methylPREDNISolone SOD SUCCI 125 MG/2 ML VIAL IV NR
[2021-08-06 08:29] VITALS: BP 150/90; PULSE 102; RESP 16; TEMP 98
== END ==
LOC: PROCWHC3 07:47
PROVIDERS: ATTEND Internal Medicine Hematology & Oncology
DX: C88.0 Waldenstrom macroglobulinemia (principal); F17.200 Nicotine dependence, unspecified, uncomplicated
CPT/HCPCS: 99211

== ENCOUNTER → 2021-11-29 | Outpatient (CLI) | payer MEDICARE ==
[~2021-11-29] MED LIST changes: -TIXAGEVIMAB/CILGAVIMAB (EUA) 300 MG/3 ML COMBO.PKG IM NR
[2021-11-29 08:25] VITALS: TEMP 98.4
[2021-11-29 08:50] LABS: Anisocytosis Moderate; Basophils # (A) 0.1 k/uL (0-0.2); Basophils % (A) 2 %; Eosinophils # (A) 0.1 k/uL (0-0.7); Eosinophils % (A) 2 %; HCT 45.5 % (39.0-53.0); HGB 13.4 gm/dL (13.0-17.5); Hypochromasia Marked; Lymphocytes # (A) 0.5 k/uL (1.0-4.8); Lymphocytes % (A) 11 %; MCH 25.8 pg (25.0-35.0); MCHC 29.3 g/dL (31.0-37.0); MCV 88.1 fL (80.0-100.0); Microcytosis Slight; Monocytes # (A) 0.5 k/uL (0-1.0); Monocytes % (A) 12 %; Neutrophils # (A) 3.1 k/uL (1.3-7.7); Neutrophils % (A) 71 %; RBC 5.17 m/uL (4.30-5.90); RDW 23.2 % (11.5-15.5); WBC 4.4 k/uL (3.8-10.6)
[2021-11-29 10:29] VITALS: RESP 16
[2021-11-29 10:31] LABS: Platelet Count 172 k/uL (150-450)
[2021-11-29 10:33] LABS: Poikilocytosis (M) Present
[2021-11-29 11:25] VITALS: BP 113/66; PULSE 78
== END ==
LOC: PROCWHC3 08:13
PROVIDERS: ATTEND Internal Medicine Hematology & Oncology
DX: C88.0 Waldenstrom macroglobulinemia (principal); F17.290 Nicotine dependence, other tobacco product, uncomplicated
CPT/HCPCS: 85025; 96375; 96413; 96415; 36591; J1200; J2930; J1642; Q5119

== ENCOUNTER → 2022-01-21 | Outpatient (CLI) | payer MEDICARE ==
[2022-01-21 08:36] VITALS: RESP 16; TEMP 98.1
[2022-01-21 09:00] LABS: Anisocytosis Slight; Basophils # (A) 0.1 k/uL (0-0.2); Basophils % (A) 1 %; Eosinophils # (A) 0.1 k/uL (0-0.7); Eosinophils % (A) 3 %; HCT 48.3 % (39.0-53.0); HGB 15.7 gm/dL (13.0-17.5); Hypochromasia Slight; Lymphocytes # (A) 0.5 k/uL (1.0-4.8); Lymphocytes % (A) 11 %; MCH 30.6 pg (25.0-35.0); MCHC 32.6 g/dL (31.0-37.0); Mean Platelet Volume 10.3; Monocytes # (A) 0.4 k/uL (0-1.0); Monocytes % (A) 9 %; Neutrophils # (A) 3.4 k/uL (1.3-7.7); Neutrophils % (A) 73 %; Platelet Count 194 k/uL (150-450); RBC 5.13 m/uL (4.30-5.90); RDW 18.5 % (11.5-15.5); WBC 4.7 k/uL (3.8-10.6)
[2022-01-21 09:11] LABS: MCV 94.1 fL (80.0-100.0)
[2022-01-21 11:31] VITALS: BP 126/78; PULSE 79
== END ==
LOC: PROCWHC3 08:11
PROVIDERS: ATTEND Internal Medicine Hematology & Oncology
DX: C88.0 Waldenstrom macroglobulinemia (principal)
CPT/HCPCS: 85025; 96375; 96413; 96415; 36591; J1200; J2930; J1642; Q5119

== ENCOUNTER 2023-01-13 06:30 | Day surgery (SDC) | payer MEDICARE ==
[2023-01-08 14:18] VITALS: BMI 29.2
[~2023-01-13 06:30] MED LIST changes: -ACETAMINOPHEN TAB 325 MG TAB PO NR; -FAMOTIDINE 20 MG/2 ML VIAL IV NR; +LACTATED RINGERS 1,000 ML IV SCH; +LIDOCAINE 1% (10MG/ML) FOR IV START INTRADERMA PRN; -RITUXIMAB PVVR IV NR; -SODIUM CHLORIDE 0.9% 500 ML 500 ML in EMPTY BAG 1 BAG IV PRN; -SODIUM CHLORIDE 0.9% IV NR; -diphenhydrAMINE 50 MG/ML 1 ML VIAL IVP NR; -methylPREDNISolone SOD SUCCI 125 MG/2 ML VIAL IV NR
[2023-01-13 07:02] VITALS: TEMP 97.8
[2023-01-13 07:10] LABS: Glucose,Whole Blood 319 mg/dL (70-110)
[2023-01-13] MEDS ORDERED: INSULIN ASPART (NovoLOG) 100 UNIT/ML VIAL SQ ONE (07:15)
[2023-01-13 07:54] LABS: Glucose,Whole Blood 308 mg/dL (70-110)
[2023-01-13] MEDS ORDERED: PROPOFOL 10 MG/ML 20 ML VIAL IV ONE (08:00)
[2023-01-13] MEDS ORDERED: LIDOCAINE 2% INJ 20 MG/ML (2 ML VIAL) ONE (08:00)
--- NOTE | 2023-01-13 08:04 | P.GSHP ---
History of Present Illness H&P Date: 01/13/23 Chief Complaint: Anemia, colon polyps 72-year-old male here for upper and lower endoscopy. Patient history of anemia and iron deficiency. Last upper and lower endoscopy 4 years ago. Patient with history of colon polyps and gastritis. No rectal bleeding or melena. 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 History of Any Multi-Drug Resistant Organisms: None Reported Past Surgical History: No Surgical Hx Reported Additional Past Surgical History / Comment(s): port placement, colonoscopy Past Anesthesia/Blood Transfusion Reactions: No Reported Reaction Past Psychological History: No Psychological Hx Reported Smoking Status: Former smoker Past Alcohol Use History: None Reported Additional Past Alcohol Use History / Comment(s): quit smoking 2 years ago. hx of 2 ppd. quit drinking 2 years ago., hx of 6-10 beers daily Past Drug Use History: None Reported - Past Family History Brother(s) Family Medical History: Diabetes Mellitus Medications and Allergies Home Medications Medication Instructions Recorded Confirmed Type Omeprazole 20 mg PO DAILY 12/01/19 01/13/23 History Ferrous Sulfate [Iron] 325 mg PO DAILY 02/09/20 01/08/23 History Cholecalciferol [Vitamin D3 (25 25 mcg PO DAILY 12/25/20 01/13/23 History Mcg = 1000 Iu)] Losartan [Cozaar] 25 mg PO DAILY 06/27/22 01/13/23 History metFORMIN HCL [Glucophage] 1,000 mg PO BID 01/08/23 01/13/23 History Allergies Allergy/AdvReac Type Severity Reaction Status Date / Time No Known Allergies Allergy Verified 01/13/23 06:56 Surgical - Exam Vital Signs Temp Pulse BP Pulse Ox 97.8 F 99 176/80 98 01/13/23 07:01 01/13/23 07:01 01/13/23 07:01 01/13/23 07:01 Physical exam: General: Well-developed, well-nourished HEENT: Normocephalic, sclerae nonicteric Abdomen: Nontender, nondistended Extremities: No edema Neuro: Alert and oriented Results - Labs Abnormal Lab Results - Last 24 Hours (Table) 01/13/23 01/13/23 Range/Units 07:06 07:52 POC Glucose (mg/dL) 319 H 308 H (70-110) mg/dL Assessment and Plan (1) Anemia Narrative/Plan: Will proceed with upper and lower endoscopy Current Visit: No Status: Acute Code(s): D64.9 - ANEMIA, UNSPECIFIED SNOMED Code(s): 108478972
--- NOTE | 2023-01-13 08:30 | P.PCN ---
Date of Procedure: 01/13/23 Procedure(s) Performed: PREOPERATIVE DIAGNOSIS: Anemia, history of polyps POSTOPERATIVE DIAGNOSIS: Gastritis, hiatal hernia, mild distal esophagitis, normal colon PROCEDURE: 1. EGD with biopsy 2. Colonoscopy ANESTHESIA: MAC SURGEON: Pablo Barakat M.D. SPECIMENS: Antrum, distal esophagus ENDOSCOPIC PROCEDURE: The patient was on the endoscopy table in the left decubitus position. The Olympus gastroscope was inserted into the oropharynx and passed under direct visualization to the region of the third portion of the duodenum. From that point the scope was slowly withdrawn inspecting all surfaces carefully. There were no neoplastic inflammatory or polypoid lesions throughout the duodenum. The pylorus was widely patent. The stomach was carefully inspected. There was mild gastritis present diffusely. A biopsy of the antrum took place to rule out H. pylori. Retroflexion revealed a small 1.5 cm hiatal hernia. At the distal esophagus there is small linear erosions each measuring less than 1 cm length. These were biopsied. The remainder the esophagus appear normal. The patient was kept on the endoscopy table in the left decubitus position. The Olympus colonoscope was inserted into the anus and passed under direct visualization to the base of the cecum. The appendiceal orifice was visualized. From that point the scope was slowly withdrawn inspecting all surfaces carefully. There were no neoplastic inflammatory or polypoid lesions throughout the cecum, ascending, transverse, descending, sigmoid and rectum. There was no visualized diverticulosis noted. The patient's prep was slightly suboptimal. Digital rectal examination was normal. The patient was taken to the recovery room in stable condition per anesthesia guidelines. RECOMMENDATIONS: Patient has gastritis which could be the source of chronic anemia. It is relatively mild however. No other abnormalities to explain the low iron. Continue iron supplementation. Likelihood of small bowel source of bleeding is low however small bowel capsule endoscopy could be ordered if this has not been done previously. Repeat EGD and colonoscopy 5 years.
[2023-01-13 08:32] VITALS: RESP 18
[2023-01-13 09:06] VITALS: BP 132/72; PULSE 79
[2023-01-13 09:14] LABS: Glucose,Whole Blood 302 mg/dL (70-110)
== END 2023-01-13 09:15 | disposition home or self-care (01) ==
LOC: ORWHC2ENDO 06:30
PROVIDERS: ATTEND Surgery
DX: K21.00 Gastro-esophageal reflux disease with esophagitis, without bleeding (principal); K29.70 Gastritis, unspecified, without bleeding; K44.9 Diaphragmatic hernia without obstruction or gangrene; K63.89 Other specified diseases of intestine; I10 Essential (primary) hypertension; E11.9 Type 2 diabetes mellitus without complications; D64.9 Anemia, unspecified; F10.90 Alcohol use, unspecified, uncomplicated; Z79.84 Long term (current) use of oral hypoglycemic drugs; Z87.19 Personal history of other diseases of the digestive system; Z87.891 Personal history of nicotine dependence; Z86.010 Personal history of colon polyps; Z85.72 Personal history of non-Hodgkin lymphomas; Z79.899 Other long term (current) drug therapy
CPT/HCPCS: 88305; 45378; 43239; J2704; J2001

== ENCOUNTER 2023-04-21 14:18 | Emergency (ER) | payer MEDICARE ==
--- NOTE | 2023-04-21 14:32 | ED ---
General Adult HPI - General Source: patient, RN notes reviewed Mode of arrival: ambulatory Limitations: no limitations <Oumar Franklin - Last Filed: 04/21/23 14:27> <Tong Ness - Last Filed: 04/21/23 20:24> - General Stated complaint: NVD Time Seen by Provider: 04/21/23 14:28 - History of Present Illness Initial comments: 72-year-old male presents emergency Department with chief complaint of nausea vomiting diarrhea congestion. Patient states that he's not felt well for last week. Patient states that he has mild abdominal discomfort. No chest pain (Oumar Franklin) This is a 72-year-old male presents emergency Department complaining of nausea but tells me he has had no vomiting. Patient states she has had a little bit of diarrhea. Patient states his become very weak over the last week. Patient s tates this seems to be getting worse per patient denies any fever chills per patient chest pain difficulty breathing shortness of breath or cough. Patient denies any headache patient denies numbness weakness. Patient states he's had some abdominal cramping but usually is followed by some diarrhea and then it goes away. Patient denies any recent injury or trauma. (Tong Ness) - Related Data Home Medications Medication Instructions Recorded Confirmed Omeprazole 20 mg PO DAILY 12/01/19 04/06/23 Ferrous Sulfate [Iron] 325 mg PO DAILY 02/09/20 04/06/23 Cholecalciferol [Vitamin D3 (25 25 mcg PO DAILY 12/25/20 04/06/23 Mcg = 1000 Iu)] Losartan [Cozaar] 25 mg PO DAILY 06/27/22 04/06/23 metFORMIN HCL [Glucophage] 1,000 mg PO BID 01/08/23 04/06/23 Allergies Allergy/AdvReac Type Severity Reaction Status Date / Time No Known Allergies Allergy Verified 04/06/23 12:23 Review of Systems ROS Other: All systems not noted in ROS Statement are negative. <Oumar Franklin - Last Filed: 04/21/23 14:27> ROS Other: All systems not noted in ROS Statement are negative. <Tong Ness - Last Filed: 04/21/23 20:24> ROS Statement: Those systems with pertinent positive or pertinent negative responses have been documented in the HPI. 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 History of Any Multi-Drug Resistant Organisms: None Reported Past Surgical History: No Surgical Hx Reported Additional Past Surgical History / Comment(s): port placement, colonoscopy Past Anesthesia/Blood Transfusion Reactions: No Reported Reaction Smoking Status: Former smoker - Past Family History Brother(s) Family Medical History: Diabetes Mellitus <Oumar Franklin - Last Filed: 04/21/23 14:27> General Exam <Oumar Franklin - Last Filed: 04/21/23 14:27> <Tong Ness - Last Filed: 04/21/23 20:24> - General Exam Comments Initial Comments: Visual Physical Exam Vital signs reviewed General: Well-appearing, nontoxic, no acute distress. Head: Normocephalic, atraumatic Eyes: PERRLA, EOMI ENT: Airway patent Chest: Nonlabored breathing Skin: No visual rash, normal skin tone Neuro: Alert and oriented 3 Musculoskeletal: No gross abnormalities (Oumar Franklin) GENERAL: Patient is well-developed and well-nourished. Patient is nontoxic and well- hydrated and is in mild distress. ENT: Neck is soft and supple. No significant lymphadenopathy is noted. Oropharynx is clear. Moist mucous membranes. Neck has full range of motion without eliciting any pain. EYES: The sclera were anicteric and conjunctiva were pink and moist. Extraocular movements were intact and pupils were equal round and reactive to light. Eyelids were unremarkable. PULMONARY: Unlabored respirations. Good breath sounds bilaterally. No audible rales rhonchi or wheezing was noted. CARDIOVASCULAR: There is a regular rate and rhythm without any murmurs gallops or rubs. ABDOMEN: Soft and nontender with normal bowel sounds. SKIN: Skin is clear with no lesions or rashes and otherwise unremarkable. NEUROLOGIC: Patient is alert and oriented x3. Cranial nerves II through XII are grossly intact. Motor and sensory are also intact. Normal speech, volume and content. Symmetrical smile. MUSCULOSKELETAL: Normal extremities with adequate strength and full range of motion. LYMPHATICS: No significant lymphadenopathy is noted PSYCHIATRIC: Normal psychiatric evaluation. (Tong Ness) Course Vital Signs 04/21/23 04/21/23 14:24 18:17 Temperature 98.2 F 98.6 F Pulse Rate 122 H 99 Respiratory 18 17 Rate Blood Pressure 96/60 122/71 O2 Sat by Pulse 96 97 Oximetry Medical Decision Making <Oumar Franklin - Last Filed: 04/21/23 14:27> - Lab Data Result diagrams: 04/21/23 15:03 04/21/23 15:03 <Tong Ness - Last Filed: 04/21/23 20:24> - Medical Decision Making I completed the quick note portion of this chart signed Oumar Franklin PA-C (Oumar Franklin) Was pt. sent in by a medical professional or institution (JENNIFER Alvarado, PERCUSSION WELDING MACHINE OPERATOR, urgent care, hospital, or fpc...) When possible be specific @ -No Did you speak to anyone other than the patient for history (EMS, parent, family, police, friend...)? What history was obtained from this source @ -No Did you review nursing and triage notes (agree or disagree)? Why? @ -I reviewed and agree with nursing and triage notes Were old charts reviewed (outside hosp., previous admission, EMS record, old EKG, old radiological studies, urgent care reports/EKG's, fpc records)? Report findings @ -No old charts were reviewed Differential Diagnosis (chest pain, altered mental status, abdominal pain women, abdominal pain men, vaginal bleeding, weakness, fever, dyspnea, syncope, headache, dizziness, GI bleed, back pain, seizure, CVA, palpatations, mental health, musculoskeletal)? @ -Differential Fever: Pneumonia, viral URI, endocarditis, myocarditis, pericarditis, otitis, sinusitis, COVID, peritonsillar Abscess, retropharyngeal Abscess, epiglottitis, peritonitis, appendicitis, Cynthia cystitis, diverticulitis, hepatitis, colitis, UTI, PID, TOA, pyelonephritis, prostatitis, epididymitis, meningitis, encephalitis, pulmonary embolism, CVA, thyroid storm, pancreatitis, adrenal crisis, cavernous sinus thrombosis, this is not meant to be an all-inclusive list. EKG interpreted by me (3pts min.). @ -As above X-rays interpreted by me (1pt min.). @ -None done CT interpreted by me (1pt min.). @ -None done U/S interpreted by me (1pt. min.). @ -None done What testing was considered but not performed or refused? (CT, X-rays, U/S, labs)? Why? @ -None What meds were considered but not given or refused? Why? @ -None Did you discuss the management of the patient with other professionals (professionals i.e. DrEdmond, PA, PERCUSSION WELDING MACHINE OPERATOR, lab, RT, psych nurse, social scientist, geology teacher, teacher, armored vehicle officer, rehabilitation case coordinator)? Give summary @ -No Was smoking cessation discussed for >3mins.? @ -No Was critical care preformed (if so, how long)? @ -No Were there social determinants of health that impacted care today? How? (Homelessness, low income, unemployed, alcoholism, drug addiction, transportation, low edu. Level, literacy, decrease access to med. care, senior care, rehab)? @ -No Was there de-escalation of care discussed even if they declined (Discuss DNR or withdrawal of care, Hospice)? DNR status @ -No What co-morbidities impacted this encounter? (DM, HTN, Smoking, COPD, CAD, Cancer, CVA, ARF, Chemo, Hep., AIDS, mental health diagnosis, sleep apnea, morbid obesity)? @ -None Was patient admitted / discharged? Hospital course, mention meds given and route, prescriptions, significant lab abnormalities, going to OR and other pertinent info. @ -Patient Was given 2 L of normal saline. Patient was given Zofran for the nausea. Patient was feeling considerably better. Undiagnosed new problem with uncertain prognosis? @ -No Drug Therapy requiring intensive monitoring for toxicity (Heparin, Nitro, Insulin, Cardizem)? @ -No Were any procedures done? @ -No Diagnosis/symptom? @ -COVID Acute, or Chronic, or Acute on Chronic? @ -Acute Uncomplicated (without systemic symptoms) or Complicated (systemic symptoms)? @ -Complicated Side effects of treatment? @ -No Exacerbation, Progression, or Severe Exacerbation? @ -No Poses a threat to life or bodily function? How? (Chest pain, [place], [place], pneumonia, PE, COPD, DKA, ARF, appy, cholecystitis, CVA, Diverticulitis, Homicidal, Suicidal, threat to staff... and all critical care pts) @ -No Diagnosis/symptom? @ -Dehydration Acute, or Chronic, or Acute on Chronic? @ -Acute Uncomplicated (without systemic symptoms) or Complicated (systemic symptoms)? @ -Complicated Side effects of treatment? @ -none Exacerbation, Progression, or Severe Exacerbation] @ -no Poses a threat to life or bodily function? @ -no (Tong Ness) - Lab Data Lab Results 04/21/23 04/21/23 04/21/23 Range/Units 15:03 15:03 15:03 WBC 10.9 H (3.8-10.6) k/uL RBC 4.59 (4.30-5.90) m/uL Hgb 10.4 L (13.0-17.5) gm/dL Hct 35.2 L (39.0-53.0) % MCV 76.7 L (80.0-100.0) fL MCH 22.7 L (25.0-35.0) pg MCHC 29.6 L (31.0-37.0) g/dL RDW 20.2 H (11.5-15.5) % Plt Count 622 H (150-450) k/uL MPV 9.5 Neutrophils % 84 % Lymphocytes % 6 % Monocytes % 7 % Eosinophils % 0 % Basophils % 0 % Neutrophils # 9.2 H (1.3-7.7) k/uL Lymphocytes # 0.6 L (1.0-4.8) k/uL Monocytes # 0.8 (0-1.0) k/uL Eosinophils # 0.0 (0-0.7) k/uL Basophils # 0.0 (0-0.2) k/uL Hypochromasia Marked Poikilocytosis Moderate Anisocytosis Moderate Microcytosis Moderate Sodium 136 L (137-145) mmol/L Potassium 3.1 L (3.5-5.1) mmol/L Chloride 95 L (98-107) mmol/L Carbon Dioxide 21 L (22-30) mmol/L Anion Gap 20 mmol/L BUN 12 (9-20) mg/dL Creatinine 0.85 (0.66-1.25) mg/dL Est GFR (CKD-EPI)AfAm >90 (>60 ml/min/1.73 sqM) Est GFR (CKD-EPI)NonAf 88 (>60 ml/min/1.73 sqM) Glucose 159 H (74-99) mg/dL Lactic Ac Sepsis Rflx Plasma Lactic Acid Juan Daniel 3.1 H* (0.7-2.0) mmol/L Calcium 8.9 (8.4-10.2) mg/dL Total Bilirubin 0.9 (0.2-1.3) mg/dL AST 36 (17-59) U/L ALT 12 (4-49) U/L Alkaline Phosphatase 145 H (38-126) U/L Total Protein 5.8 L (6.3-8.2) g/dL Albumin 3.4 L (3.5-5.0) g/dL Lipase 68 (23-300) U/L Influenza Type A (PCR) (Not Detectd) Influenza Type B (PCR) (Not Detectd) RSV (PCR) (Not Detectd) SARS-CoV-2 (PCR) (Not Detectd) 04/21/23 04/21/23 04/21/23 Range/Units 15:03 15:52 18:08 WBC (3.8-10.6) k/uL RBC (4.30-5.90) m/uL Hgb (13.0-17.5) gm/dL Hct (39.0-53.0) % MCV (80.0-100.0) fL MCH (25.0-35.0) pg MCHC (31.0-37.0) g/dL RDW (11.5-15.5) % Plt Count (150-450) k/uL MPV Neutrophils % % Lymphocytes % % Monocytes % % Eosinophils % % Basophils % % Neutrophils # (1.3-7.7) k/uL Lymphocytes # (1.0-4.8) k/uL Monocytes # (0-1.0) k/uL Eosinophils # (0-0.7) k/uL Basophils # (0-0.2) k/uL Hypochromasia Poikilocytosis Anisocytosis Microcytosis Sodium (137-145) mmol/L Potassium (3.5-5.1) mmol/L Chloride (98-107) mmol/L Carbon Dioxide (22-30) mmol/L Anion Gap mmol/L BUN (9-20) mg/dL Creatinine (0.66-1.25) mg/dL Est GFR (CKD-EPI)AfAm (>60 ml/min/1.73 sqM) Est GFR (CKD-EPI)NonAf (>60 ml/min/1.73 sqM) Glucose (74-99) mg/dL Lactic Ac Sepsis Rflx Y Plasma Lactic Acid Juan Daniel 2.3 H* (0.7-2.0) mmol/L Calcium (8.4-10.2) mg/dL Total Bilirubin (0.2-1.3) mg/dL AST (17-59) U/L ALT (4-49) U/L Alkaline Phosphatase (38-126) U/L Total Protein (6.3-8.2) g/dL Albumin (3.5-5.0) g/dL Lipase (23-300) U/L Influenza Type A (PCR) Not Detected (Not Detectd) Influenza Type B (PCR) Not Detected (Not Detectd) RSV (PCR) Not Detected (Not Detectd) SARS-CoV-2 (PCR) Detected A (Not Detectd) Disposition <Oumar Franklin - Last Filed: 04/21/23 14:27> Is patient prescribed a controlled substance at d/c from ED?: No Time of Disposition: 20:23 <Tong Ness - Last Filed: 04/21/23 20:24> Clinical Impression: COVID Disposition: HOME SELF-CARE Condition: Good Instructions (If sedation given, give patient instructions): COVID-19 (Coronavirus Disease 2019) (ED) Additional Instructions: Patient should increase fluids by mouth Referrals: Arpita Glass MD [Primary Care Provider] - 1-2 days
[2023-04-21 15:11] LABS: Anisocytosis Moderate; Basophils % (A) 0 %; Eosinophils % (A) 0 %; HCT 35.2 % (39.0-53.0); HGB 10.4 gm/dL (13.0-17.5); Hypochromasia Marked; Lymphocytes # (A) 0.6 k/uL (1.0-4.8); Lymphocytes % (A) 6 %; MCH 22.7 pg (25.0-35.0); MCHC 29.6 g/dL (31.0-37.0); MCV 76.7 fL (80.0-100.0); Mean Platelet Volume 9.5; Microcytosis Moderate; Monocytes # (A) 0.8 k/uL (0-1.0); Monocytes % (A) 7 %; Neutrophils # (A) 9.2 k/uL (1.3-7.7); Neutrophils % (A) 84 %; Platelet Count 622 k/uL (150-450); Poikilocytosis Moderate; RBC 4.59 m/uL (4.30-5.90); RDW 20.2 % (11.5-15.5); WBC 10.9 k/uL (3.8-10.6)
[2023-04-21 15:23] LABS: ALT 12 U/L (4-49); AST 36 U/L (17-59); African American GFR (CKD) >90 (>60 ml/min/1.73 sqM); Albumin 3.4 g/dL (3.5-5.0); Alkaline Phosphatase 145 U/L (38-126); Anion Gap 20 mmol/L; Blood Urea Nitrogen 12 mg/dL (9-20); Calcium 8.9 mg/dL (8.4-10.2); Carbon Dioxide 21 mmol/L (22-30); Chloride 95 mmol/L (98-107); Glucose 159 mg/dL (74-99); Lipase 68 U/L (23-300); Non-African American GFR(CKD) 88 (>60 ml/min/1.73 sqM); Potassium 3.1 mmol/L (3.5-5.1); Sodium 136 mmol/L (137-145); Total Bilirubin 0.9 mg/dL (0.2-1.3); Total Protein 5.8 g/dL (6.3-8.2)
[2023-04-21 18:29] VITALS: TEMP 98.6
[2023-04-21] MEDS ORDERED: SODIUM CHLORIDE 0.9% 1,000 ML IV ONE ×2 (18:38→19:48)
[2023-04-21] MEDS ORDERED: POTASSIUM CHLORIDE ER 20 MEQ TAB.ER PO STA (18:39)
[2023-04-21] MEDS ORDERED: ONDANSETRON 4 MG/2 ML VIAL IVP STA (18:39)
[2023-04-21 20:18] VITALS: PULSE 96; RESP 18
[2023-04-21] MEDS ORDERED: ONDANSETRON 4 MG ODT STARTER PACK 2 TAB BTL PO STA (20:24)
[2023-04-21 21:48] VITALS: BP 116/67
[2023-04-21 22:36] LABS: Bacteria,Urine Many /hpf; Hyaline Casts,Urine 18 /lpf (0-2); Mucus,Urine Few /hpf; RBC,Urine 1 /hpf (0-5); Squamous Epithelial Cell,Urine <1 /hpf (0-4); WBC,Urine 156 /hpf (0-5)
[2023-04-21 22:40] LABS: Appearance,Urine Cloudy (Clear); Bilirubin,Urine Negative (Negative); Color,Urine Dark Yellow; Glucose,Urine (UA) Negative (Negative); Ketones,Urine 2+ (Negative); Protein,Urine 1+ (Negative)
[2023-04-21 22:41] LABS: Blood,Urine Negative (Negative); Leukocyte Esterase,Urine Moderate (Negative); Nitrite,Urine Positive (Negative); Urobilinogen,Urine <2.0 mg/dL (<2.0)
== END 2023-04-21 21:37 | disposition home or self-care (01) ==
LOC: EC 14:18
DX: U07.1 COVID-19 (principal); E11.9 Type 2 diabetes mellitus without complications; K21.9 Gastro-esophageal reflux disease without esophagitis; I10 Essential (primary) hypertension; Z87.891 Personal history of nicotine dependence; Z79.84 Long term (current) use of oral hypoglycemic drugs; Z79.899 Other long term (current) drug therapy
CPT/HCPCS: 51798; 36415; 80053; 83605; 83690; 85025; 81001; 87636; 99284; 96374; 96361 ×3; J2405; S0119

== ENCOUNTER 2023-08-06 16:31 | Emergency (ER) | payer MEDICARE ==
[2023-08-06 17:15] VITALS: TEMP 98
[2023-08-06 17:48] VITALS: RESP 18
--- NOTE | 2023-08-06 17:59 | ED ---
ENT HPI - General Chief complaint: ENT Stated complaint: Troubles swallowing;spitting up food Time Seen by Provider: 08/06/23 16:55 Source: patient Mode of arrival: ambulatory Limitations: no limitations - History of Present Illness Initial comments: 73-year-old male with a past medical history significant for type 2 diabetes, hypertension, iron deficiency and prior history of "blood cancer" not currently on chemo or radiation presenting to the ED with a chief complaint of dysphagia. Patient reports over the past 5 days has had difficulty swallowing. No pain with swallowing however he reports that almost immediately after trying to swallow food or fluids regurgitates the contents. Secondary to this has very minimal fluid intake and no food intake for the past 5 days. Reports some nausea with this and some minimal abdominal pain. Other than decreased urination and bowel movements no other changes to bowel or bladder habits. Denies chest pain or shortness of breath. No fever or chills. No other complaints at this time. - Related Data Home Medications Medication Instructions Recorded Confirmed Omeprazole 20 mg PO DAILY@0400 12/01/19 08/06/23 Ferrous Sulfate [Iron] 325 mg PO DAILY@0400 02/09/20 08/06/23 Losartan [Cozaar] 25 mg PO DAILY@0400 06/27/22 08/06/23 metFORMIN HCL [Glucophage] 1,000 mg PO BID-W/MEALS@01/08/23 08/06/23 Allergies Allergy/AdvReac Type Severity Reaction Status Date / Time No Known Allergies Allergy Verified 08/06/23 20:53 Review of Systems ROS Statement: Those systems with pertinent positive or pertinent negative responses have been documented in the HPI. ROS Other: All systems not noted in ROS Statement are negative. 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 History of Any Multi-Drug Resistant Organisms: None Reported Past Surgical History: No Surgical Hx Reported Additional Past Surgical History / Comment(s): port placement, colonoscopy Past Anesthesia/Blood Transfusion Reactions: No Reported Reaction Past Psychological History: No Psychological Hx Reported Smoking Status: Former smoker Past Alcohol Use History: None Reported Past Drug Use History: None Reported - Past Family History Brother(s) Family Medical History: Diabetes Mellitus General Exam Limitations: no limitations General appearance: alert, in no apparent distress Eye exam: Present: normal appearance ENT exam: Present: normal oropharynx, other (Tolerating secretions. No stridor.) Neck exam: Present: normal inspection Respiratory exam: Present: normal lung sounds bilaterally Cardiovascular Exam: Present: regular rate GI/Abdominal exam: Present: soft, normal bowel sounds. Absent: distended, tenderness, guarding, rebound, rigid Neurological exam: Present: alert, oriented X3 Skin exam: Present: warm, dry Course Vital Signs 08/06/23 08/06/23 08/06/23 16:44 17:22 18:12 Temperature 98.0 F Pulse Rate 133 H 114 H 103 H Respiratory 20 18 18 Rate Blood Pressure 127/83 125/81 125/67 O2 Sat by Pulse 96 98 99 Oximetry Medical Decision Making - Medical Decision Making Was pt. sent in by a medical professional or institution (, PA, NUTTER UP, urgent care, hospital, or jail...) When possible be specific @ -No Did you speak to anyone other than the patient for history (EMS, parent, family, police, friend...)? What history was obtained from this source @ -No Did you review nursing and triage notes (agree or disagree)? Why? @ -I reviewed and agree with nursing and triage notes Were old charts reviewed (outside hosp., previous admission, EMS record, old EKG, old radiological studies, urgent care reports/EKG's, jail records)? Report findings @ -EKG reviewed. For further details please see below. Differential Diagnosis (chest pain, altered mental status, abdominal pain women, abdominal pain men, vaginal bleeding, weakness, fever, dyspnea, syncope, headache, dizziness, GI bleed, back pain, seizure, CVA, palpatations, mental health, musculoskeletal)? @ -Zenker's diverticulum, Schatzki's ring, esophageal strictures, malignancy, CVA. This not meant to be an all-inclusive list. EKG interpreted by me (3pts min.). @ -EKG interpreted by me which shows a sinus tachycardia with diffuse ST and T wave changes which appears unchanged from prior at a rate of 117 bpm. TN 163, QRS 85, QT/QTc 430/500. X-rays interpreted by me (1pt min.). @ -Chest x-ray inter by me which revealed no evidence of acute finding CT interpreted by me (1pt min.). @ -CT brain interpreted me which revealed no evidence of acute finding. CT soft tissue neck inter by me which showed a mildly patulous esophagus with air-fluid level. No definite evidence of mass, abscess, or adenopathy. U/S interpreted by me (1pt. min.). @ -None done What testing was considered but not performed or refused? (CT, X-rays, U/S, labs)? Why? @ -None What meds were considered but not given or refused? Why? @ -None Did you discuss the management of the patient with other professionals (professionals i.e. , PA, NUTTER UP, lab, RT, psych nurse, manager social media, [place] police launch commander, teacher, patient safety officer, case advocate)? Give summary @ -Case was discussed with Dr. Barakat of general surgery who recommends transfer to facility with GI services. Case was discussed with Dr. Atkinson, ED attending at [facility], who accepted transfer. Was smoking cessation discussed for >3mins.? @ -No Was critical care preformed (if so, how long)? @ -No Were there social determinants of health that impacted care today? How? (Homelessness, low income, unemployed, alcoholism, drug addiction, transportation, low edu. Level, literacy, decrease access to med. care, half-way, rehab)? @ -No Was there de-escalation of care discussed even if they declined (Discuss DNR or withdrawal of care, Hospice)? DNR status @ -No What co-morbidities impacted this encounter? (DM, HTN, Smoking, COPD, CAD, Cancer, CVA, ARF, Chemo, Hep., AIDS, mental health diagnosis, sleep apnea, morbid obesity)? @ -None Was patient admitted / discharged? Hospital course, mention meds given and route, prescriptions, significant lab abnormalities, going to OR and other pert inent info. @ -Transfer 73-year-old male presenting to the ED with complaints of dysphagia over the past 5 days. Reports immediately after trying to swallow regurgitates food. States that he is still able to swallow a small amount of liquid. On examination, patient is tolerating secretions. Laboratory studies reviewed. Labs do show an elevated white blood cell count at 13.5, hemoglobin 18.4. Chemistry panel reviewed showing some elevations in sodium at 147, kidney injury with BUN at 71 creatinine at 1.87, magnesium at 2.7. This was a slightly hemolyzed. Troponin undetectable. Chest x-ray was performed which revealed no evidence of acute finding. Brain CT showed no evidence of acute finding. Soft tissue neck CT showed no definite evidence of mass, abscess, or adenopathy in the neck. Does show a mildly patulous esophagus containing air-fluid level. GI services are unavailable at this hospital and therefore patient transferred to [facility] for further evaluation. Patient provided 2 L of fluids here in the ED. Plan of care discussed with patient who is in agreement. Undiagnosed new problem with uncertain prognosis? @ -No Drug Therapy requiring intensive monitoring for toxicity (Heparin, Nitro, Insulin, Cardizem)? @ -No Were any procedures done? @ -No Diagnosis/symptom? @ -Dysphagia Acute, or Chronic, or Acute on Chronic? @ -Acute Uncomplicated (without systemic symptoms) or Complicated (systemic symptoms)? @ -Complicated Side effects of treatment? @ -No Exacerbation, Progression, or Severe Exacerbation? @ -No Poses a threat to life or bodily function? How? (Chest pain, [place], [place], pneumonia, PE, COPD, DKA, ARF, appy, cholecystitis, CVA, Diverticulitis, Homicidal, Suicidal, threat to staff... and all critical care pts) @ -Unlikely - Lab Data Result diagrams: 08/06/23 18:10 08/06/23 18:10 Lab Results 08/06/23 08/06/23 08/06/23 Range/Units 18:10 18:10 18:10 WBC 13.5 H (3.8-10.6) k/uL RBC 6.59 H (4.30-5.90) m/uL Hgb 18.4 H (13.0-17.5) gm/dL Hct 58.8 H* (39.0-53.0) % MCV 89.2 (80.0-100.0) fL MCH 27.9 (25.0-35.0) pg MCHC 31.3 (31.0-37.0) g/dL RDW 17.8 H (11.5-15.5) % Plt Count 273 (150-450) k/uL MPV 10.6 Neutrophils % 86 % Lymphocytes % 4 % Monocytes % 7 % Eosinophils % 1 % Basophils % 1 % Neutrophils # 11.6 H (1.3-7.7) k/uL Lymphocytes # 0.5 L (1.0-4.8) k/uL Monocytes # 1.0 (0-1.0) k/uL Eosinophils # 0.1 (0-0.7) k/uL Basophils # 0.1 (0-0.2) k/uL Hypochromasia Slight Anisocytosis Slight Sodium 147 H (137-145) mmol/L Potassium 4.5 (3.5-5.1) mmol/L Chloride 108 H (98-107) mmol/L Carbon Dioxide 17 L (22-30) mmol/L Anion Gap 22 mmol/L BUN 71 H (9-20) mg/dL Creatinine 1.87 H (0.66-1.25) mg/dL Est GFR (CKD-EPI)AfAm 41 (>60 ml/min/1.73 sqM) Est GFR (CKD-EPI)NonAf 35 (>60 ml/min/1.73 sqM) Glucose 204 H (74-99) mg/dL Calcium 10.5 H (8.4-10.2) mg/dL Magnesium Cancelled Total Bilirubin 1.1 (0.2-1.3) mg/dL AST 42 (17-59) U/L ALT 22 (4-49) U/L Alkaline Phosphatase 128 H (38-126) U/L Troponin I (0.000-0.034) ng/mL Total Protein 9.0 H (6.3-8.2) g/dL Albumin 5.6 H (3.5-5.0) g/dL Urine Color Colorless Urine Appearance Clear (Clear) Urine pH 5.5 (5.0-8.0) Ur Specific [place] >1.050 H (1.001-1.035) Urine Protein Trace H (Negative) Urine Glucose (UA) 1+ H (Negative) Urine Ketones 2+ H (Negative) Urine Blood Negative (Negative) Urine Nitrite Negative (Negative) Urine Bilirubin Negative (Negative) Urine Urobilinogen <2.0 (<2.0) mg/dL Ur Leukocyte Esterase Negative (Negative) 08/06/23 08/06/23 Range/Units 18:10 18:31 WBC (3.8-10.6) k/uL RBC (4.30-5.90) m/uL Hgb (13.0-17.5) gm/dL Hct (39.0-53.0) % MCV (80.0-100.0) fL MCH (25.0-35.0) pg MCHC (31.0-37.0) g/dL RDW (11.5-15.5) % Plt Count (150-450) k/uL MPV Neutrophils % % Lymphocytes % % Monocytes % % Eosinophils % % Basophils % % Neutrophils # (1.3-7.7) k/uL Lymphocytes # (1.0-4.8) k/uL Monocytes # (0-1.0) k/uL Eosinophils # (0-0.7) k/uL Basophils # (0-0.2) k/uL Hypochromasia Anisocytosis Sodium (137-145) mmol/L Potassium (3.5-5.1) mmol/L Chloride (98-107) mmol/L Carbon Dioxide (22-30) mmol/L Anion Gap mmol/L BUN (9-20) mg/dL Creatinine (0.66-1.25) mg/dL Est GFR (CKD-EPI)AfAm (>60 ml/min/1.73 sqM) Est GFR (CKD-EPI)NonAf (>60 ml/min/1.73 sqM) Glucose (74-99) mg/dL Calcium (8.4-10.2) mg/dL Magnesium 2.7 H Total Bilirubin (0.2-1.3) mg/dL AST (17-59) U/L ALT (4-49) U/L Alkaline Phosphatase (38-126) U/L Troponin I <0.012 (0.000-0.034) ng/mL Total Protein (6.3-8.2) g/dL Albumin (3.5-5.0) g/dL Urine Color Urine Appearance (Clear) Urine pH (5.0-8.0) Ur Specific [place] (1.001-1.035) Urine Protein (Negative) Urine Glucose (UA) (Negative) Urine Ketones (Negative) Urine Blood (Negative) Urine Nitrite (Negative) Urine Bilirubin (Negative) Urine Urobilinogen (<2.0) mg/dL Ur Leukocyte Esterase (Negative) Disposition Clinical Impression: Dysphagia Disposition: OTHER INSTITUTION NOT DEFINED Condition: Fair Referrals: Ronny Reece MD [Primary Care Provider] - 1-2 days Time of Disposition: 21:00 - Out of Hospital Transfer - Req. Specs Out of Hospital Transfer - Requested Specifics: Other Emergency Center ([facility]
[2023-08-06] MEDS: SODIUM CHLORIDE 0.9% 2,000 ML IV STA (18:08)
[2023-08-06 18:28] LABS: Anisocytosis Slight; Basophils # (A) 0.1 k/uL (0-0.2); Basophils % (A) 1 %; Eosinophils # (A) 0.1 k/uL (0-0.7); Eosinophils % (A) 1 %; HGB 18.4 gm/dL (13.0-17.5); Hypochromasia Slight; Lymphocytes # (A) 0.5 k/uL (1.0-4.8); Lymphocytes % (A) 4 %; MCH 27.9 pg (25.0-35.0); MCHC 31.3 g/dL (31.0-37.0); MCV 89.2 fL (80.0-100.0); Mean Platelet Volume 10.6; Monocytes % (A) 7 %; Neutrophils # (A) 11.6 k/uL (1.3-7.7); Neutrophils % (A) 86 %; Platelet Count 273 k/uL (150-450); RBC 6.59 m/uL (4.30-5.90); RDW 17.8 % (11.5-15.5); WBC 13.5 k/uL (3.8-10.6)
[2023-08-06 18:39] LABS: ALT 22 U/L (4-49); African American GFR (CKD) 41 (>60 ml/min/1.73 sqM); Albumin 5.6 g/dL (3.5-5.0); Anion Gap 22 mmol/L; Blood Urea Nitrogen 71 mg/dL (9-20); Calcium 10.5 mg/dL (8.4-10.2); Carbon Dioxide 17 mmol/L (22-30); Chloride 108 mmol/L (98-107); Glucose 204 mg/dL (74-99); Non-African American GFR(CKD) 35 (>60 ml/min/1.73 sqM); Sodium 147 mmol/L (137-145); Total Bilirubin 1.1 mg/dL (0.2-1.3)
[2023-08-06 18:43] LABS: AST 42 U/L (17-59); Alkaline Phosphatase 128 U/L (38-126); Potassium 4.5 mmol/L (3.5-5.1)
[2023-08-06 18:52] LABS: HCT 58.8 % (39.0-53.0)
--- NOTE | 2023-08-06 20:18 | CT ---
EXAMINATION TYPE: CT brain wo con CT DLP: 1115.2 mGycm, Automated exposure control for dose reduction was used. DATE OF EXAM: 08/06/2023 7:13 PM COMPARISON: None. CLINICAL INDICATION:Male, 73 years old with history of dysphagia, dysphagia TECHNIQUE: Brain: Axial CT images of the brain were obtained with coronal and sagittal reformats created and rev iewed. Contrast used: None. Oral contrast used: None. FINDINGS: Extra-axial spaces: No abnormal extra-axial fluid collections. Ventricular system: Ventricles appear dilated in proportion to the degree of cerebral atrophy. Cerebral parenchyma: No increased attenuation to suggest acute intraparenchymal hemorrhage. The gra y-white matter interface appears maintained. Moderate generalized brain atrophy. Scattered hypoatte nuating areas are seen within the cerebral white matter, nonspecific but most often seen with chronic microvascular ischemic changes; moderate in degree. Cerebellum: No acute abnormality. Mass effect: No evidence of mass effect or midline shift. Intracranial vasculature: Atherosclerotic calcifications of the larger arteries near the skull base. Soft tissues: No acute or concerning abnormality. Visualized orbits: Orbital contents appear grossly intact. Calvarium/osseous structures: No evidence of calvarial fracture. Paranasal sinuses and mastoid air cells: Mastoid air cells are clear. Faint frothy or Macanese cheese a ppearance of the contents in the inferior and lateral aspects of the left maxillary sinus, nonspecifi c could reflect acute sinus disease. Otherwise paranasal sinuses are clear. There is nasal septal janeth luation towards the right with osseous spur. MRI is more sensitive for detecting acute processes such as infarct, and may be considered if clinica lly warranted. IMPRESSION: 1. No acute intracranial CT abnormality. 2. Moderate atrophy and chronic microvascular ischemic changes. 3. Opacity suggesting secretions in the left maxillary sinus, correlate for acute sinus disease.
--- NOTE | 2023-08-06 20:35 | XR ---
EXAMINATION TYPE: XR chest 2V DATE OF EXAM: 08/06/2023 6:41 PM CLINICAL INDICATION:Male, 73 years old with history of Chest Pain; difficulty swallowing COMPARISON: 01/30/2021 TECHNIQUE: XR chest 2V. Frontal and lateral views of the chest.. FINDINGS: Lines/Tubes/Devices: Right chest [id number] with catheter tip over the upper SVC unchanged Heart/mediastinum: Heart size is stable, within normal limits. Mediastinum appears normal. Pulmonary vascularity: Not increased, Lungs/Pleura: There is no evidence of pleural effusion, focal consolidation, or pneumothorax. Musculoskeletal: No acute osseous abnormality demonstrated in the limits of the exam. Mild degenerat lauren changes of the dorsal spine with relatively preserved disc spaces and small flowing anterior synd esmophytes, could be related to DISH. Other findings: None. IMPRESSION: No acute findings, or significant interval change.
--- NOTE | 2023-08-06 20:51 | CT ---
EXAMINATION TYPE: CT soft tissue neck w con CT DLP: 234.6 mGycm, Automated exposure control for dose reduction was used. DATE OF EXAM: 08/06/2023 7:14 PM COMPARISON: None. CLINICAL INDICATION:Male, 73 years old with history of dysphagia; PHH, dysphagia TECHNIQUE: Standard enhanced CT of the neck. Axial sections with coronal and sagittal reformats were obtained. Contrast used:70cc mL of Isovue 300 with IV Contrast, Oral contrast used: none. FINDINGS: Brain: Visualized portions are grossly unremarkable. Orbits: Unremarkable, as seen. Sinuses: Unremarkable as seen Spaces of the neck: Clear and symmetric. Musculoskeletal: No acute osseous pathology. Mild/moderate degenerative disc disease changes of the v isualized spine are present. [id number] sized anterior osteophytes C5-C6 appear to be the lar gest, and exert mild mass effect on the posterior esophagus; this is not definitely significant, but sometimes spinal osteophytic spurring can contribute to dysphagia. Lymph nodes: Nonenlarged nodes seen throughout the bilateral cervical chains. No enlarged or necroti c nodes.. Vascular structures: Visualized major arteries are patent without evidence of aneurysm. There is mild to moderate mixed atherosclerotic plaque in the proximal ICAs without hemodynamically significant st enosis. Right chest [id number] with the catheter extending through the SVC with the tip beyond the field of view. Thoracic Inlet/airway: Airway is patent. Lung apices show moderate emphysematous changes. No acute in filtrate or pneumothorax. Esophagus appears patulous, up to 2.7 cm transverse, and contains fluid wit h an air-fluid level noted close to the level of the lung apices. Soft tissues/Thyroid: Thyroid and remainder of the soft tissues are unremarkable. Other: none. IMPRESSION 1. No definite evidence of mass, abscess, or adenopathy in the neck. 2. Qqld-[id number]-[id number] mixed atherosclerotic disease without significant narrowing in the proximal ICAs . 3. Mild multilevel cervical spondylosis, with small to moderate sized anterior osteophytes C5-C6. 4. Mildly patulous esophagus containing an air-fluid level. Consider reflux or dysmotility.
[2023-08-06 21:11] LABS: Appearance,Urine Clear (Clear); Bilirubin,Urine Negative (Negative); Blood,Urine Negative (Negative); Color,Urine Colorless; Glucose,Urine (UA) 1+ (Negative); Leukocyte Esterase,Urine Negative (Negative); Nitrite,Urine Negative (Negative); PH, Urine 5.5 (5.0-8.0); Protein,Urine Trace (Negative); Urobilinogen,Urine <2.0 mg/dL (<2.0)
[2023-08-06 21:13] LABS: Ketones,Urine 2+ (Negative)
[2023-08-06 21:14] LABS: Specific Gravity,Urine >1.050 (1.001-1.035)
[2023-08-06 22:46] VITALS: BP 138/85; PULSE 89
[2023-08-06 22:50] LABS: Partial Thromboplastin Time 21.4 sec (22.0-30.0)
== END 2023-08-06 22:26 | disposition other institution (70) ==
LOC: EC 16:31
DX: R13.10 Dysphagia, unspecified (principal); R00.0 Tachycardia, unspecified; E11.9 Type 2 diabetes mellitus without complications; I10 Essential (primary) hypertension; Z79.84 Long term (current) use of oral hypoglycemic drugs; Z79.899 Other long term (current) drug therapy; Z87.891 Personal history of nicotine dependence
CPT/HCPCS: 96360; 96361; 36415; 80053; 83735; 84484; 85025; 85610; 85730; 81003; 71046; 70491; 70450; 99285; Q9967